=== PATIENT | female | born 1955 | race Caucasian/White ===

== ENCOUNTER 2020-01-26 14:20 | Outpatient (CLI) | payer BC | END 2020-01-26 14:21 | disposition home or self-care (01) | LOC: COV 14:20 | PROVIDERS: ATTEND Family Medicine | DX: R05 Cough (principal); R50.9 Fever, unspecified | CPT/HCPCS: 81599 ==

== ENCOUNTER 2020-01-29 09:44 | Inpatient (IN) | payer BC ==
[2020-01-29] MEDS ORDERED: SODIUM CHLORIDE 0.9% 1,000 ML IV ONE ×2 (10:05→10:06)
[2020-01-29] MEDS ORDERED: KETOROLAC 15 MG/ML VIAL IVP STA (10:06)
[2020-01-29] MEDS ORDERED: ONDANSETRON 4 MG/2 ML VIAL IVP STA (10:06)
[2020-01-29] MEDS ORDERED: ACETAMINOPHEN 1,000 MG/100 ML 100 ML IV STA (10:06)
--- NOTE | 2020-01-29 10:18 | ED Physician Documentation ---
PD HPI URI - Stated complaint Stated Complaint: COUGH/FEVER - History obtained from History obtained from: Patient - History of Present Illness Timing - onset: How many days ago (4-5) Timing duration: Days (Onset of general malaise myalgias fever and cough 4 to 5 days ago with progressive worsening. She had diarrhea for a day 2 or 3 days ago but that has resolved. Decreased appetite and still taking fluids but less food intake. No vomiting. She was getting more short of breath today.She had a screening test for coronavirus within the last 2 to 3days but the results are still pending.) Timing details: Abrupt onset, Still present Associated symptoms: Fever, Chills, Nasal congestion, Dry cough, Dyspnea, NVD. No: Sore throat, Hemoptysis, Chest pain, Bilateral edema Contributing factors: Travel (Visiting from [place] and arrived January 04. She felt fine at that time. She has just been sick the last for 5 days.) Similar symptoms before: Has not had sx before Recently seen: No: Clinic (She had a screening test for coronavirus 1 or 2 days ago and the results are still pending.) Review of Systems Constitutional: reports: Fever, Chills, Myalgias, Fatigue Nose: reports: Rhinorrhea / runny nose, Congestion Throat: reports: Sore throat Respiratory: reports: Dyspnea, Cough. denies: Hemoptysis GI: reports: Diarrhea. denies: Abdominal Pain, Nausea, Vomiting Musculoskeletal: denies: Neck pain, Back pain, Extremity swelling Neurologic: reports: Generalized weakness. denies: Focal weakness, Numbness, Difficulty speaking PD PAST MEDICAL HISTORY - Past Medical History Cardiovascular: None Respiratory: None Neuro: None Endocrine/Autoimmune: None Other Past Medical History: History of CLL without any current medications. She states her white count typically is 14-18. - Present Medications Home Medications: Ambulatory Orders Medication Instructions Recorded Confirmed Duloxetine HCl [Cymbalta] 2 tab DAILY 01/29/20 01/29/20 Levothyroxine [Synthroid] 1 tab DAILY 01/29/20 01/29/20 Melatonin 1 tab DAILY 01/29/20 01/29/20 - Allergies Allergies/Adverse Reactions: Allergies Allergy/AdvReac Type Severity Reaction Status Date / Time aspirin Allergy Anaphylaxis Verified 01/29/20 10:14 azithromycin Allergy Hives Verified 01/29/20 10:14 morphine Allergy Itching Verified 01/29/20 10:14 pregabalin [From Lyrica] Allergy Unknown Verified 01/29/20 10:14 tetanus toxoid, adsorbed Allergy Itching Verified 01/29/20 10:14 gabapentin AdvReac Unknown Verified 01/29/20 10:14 - Living Situation Living Situation: reports: Alone Living Arrangement: reports: At home (She is currently visiting from [place]. She arrived January 04 to visit her sister who is feeling well. The patient started feeling sick after having been here a couple of weeks so seems to be local illness.) - Social History Does the pt smoke?: No Does the pt drink ETOH?: No Does the pt have substance abuse?: No - Family History Family history: denies: Sudden PD ED PE NORMAL - Vitals Vital signs reviewed: Yes - General General: Alert and oriented X 3, No acute distress, Well developed/nourished - HEENT HEENT: Ears normal, Pharynx benign. No: Moist mucous membranes - Neck Neck: Supple, no meningeal sign, No adenopathy - Cardiac Cardiac: RRR, No murmur - Respiratory Respiratory: No respiratory distress. No: Clear bilaterally (There is some crackles sounds diffusely. There is mild scattered expiratory wheezes. She is tachypneic but without any retractions or accessory muscle use. She is febrile.) - Abdomen Abdomen: Soft, Non tender - Back Back: No CVA TTP - Derm Derm: Normal color, Warm and dry - Extremities Extremities: No deformity, No tenderness to palpate, Normal ROM s pain, No edema, No calf tenderness / cord - Neuro Neuro: Alert and oriented X 3, No motor deficit, Normal speech Results - Vitals Vitals: Vital Signs - 24 hr 01/29/20 01/29/20 01/29/20 10:00 10:05 10:38 Temperature 39.6 C H Heart Rate 96 95 Respiratory 32 H 30 H 18 Rate Blood Pressure 127/66 127/58 L O2 Saturation 75 L 96 65 L 01/29/20 01/29/20 01/29/20 10:41 10:49 11:02 Temperature 39.5 C H Heart Rate 90 89 Respiratory 32 H 18 Rate Blood Pressure 134/55 H 125/66 O2 Saturation 100 95 01/29/20 01/29/20 01/29/20 11:36 12:00 12:28 Temperature 37.4 C 99.5 C H Heart Rate 85 81 81 Respiratory 24 16 20 Rate Blood Pressure 122/64 121/69 127/68 O2 Saturation 93 93 94 01/29/20 12:32 Temperature 99.5 C H Heart Rate 82 Respiratory 18 Rate Blood Pressure 125/76 O2 Saturation 92 Oxygen O2 Source Nasal cannula Oxygen Flow Rate 2 - Labs Labs: Laboratory Tests 01/29/20 01/29/20 01/29/20 10:05 10:05 10:05 WBC 11.1 H RBC 4.35 Hgb 12.5 Hct 39.4 MCV 90.6 MCH 28.7 MCHC 31.7 L RDW 14.6 Plt Count 330 MPV 10.4 Neut # (Auto) 7.6 H Lymph # (Auto) 2.8 [place] # (Auto) 0.5 Eos # (Auto) 0.0 Baso # (Auto) 0.1 Absolute Nucleated RBC 0.00 Nucleated RBC % 0.0 Manual Slide Review Indicated WBC Morphology NORMAL APPEARANCE Platelet Estimate NORMAL (130-450,000) Platelet Morphology NORMAL APPEARANCE RBC Morph Micro Appear NORMAL APPEARANCE D-Dimer 280.3 H Sodium 136 Potassium 3.3 L Chloride 100 L Carbon Dioxide 21 Anion Gap 15.0 H BUN 20 Creatinine 1.1 H Estimated GFR (MDRD) 50 L Glucose 118 H Calcium 8.4 L Total Bilirubin 0.9 AST 84 H ALT 40 Alkaline Phosphatase 76 C-Reactive Protein 21.9 H B-Natriuretic Peptide Total Protein 6.6 L Albumin 3.1 L Globulin 3.5 Albumin/Globulin Ratio 0.9 L Lipase 24 Influenza A (Rapid) Influenza B (Rapid) 01/29/20 01/29/20 10:05 10:35 WBC RBC Hgb Hct MCV MCH MCHC RDW Plt Count MPV Neut # (Auto) Lymph # (Auto) [place] # (Auto) Eos # (Auto) Baso # (Auto) Absolute Nucleated RBC Nucleated RBC % Manual Slide Review WBC Morphology Platelet Estimate Platelet Morphology RBC Morph Micro Appear D-Dimer Sodium Potassium Chloride Carbon Dioxide Anion Gap BUN Creatinine Estimated GFR (MDRD) Glucose Calcium Total Bilirubin AST ALT Alkaline Phosphatase C-Reactive Protein B-Natriuretic Peptide 42 Total Protein Albumin Globulin Albumin/Globulin Ratio Lipase Influenza A (Rapid) Negative Influenza B (Rapid) Negative - Rads (name of study) chest xray Radiology: Prelim report reviewed (Diffuse scattered groundglass appearance and localized infiltrates consistent with a viral pneumonia.), See rad report PD MEDICAL DECISION MAKING - ED course Complexity details: considered differential (Symptoms highly suggestive of coronavirus with progressive oxygen need and a chest x-ray showing significant infiltrates. She is maintaining her oxygen on 3 L nasal cannula at this point. No accessory muscle use. She does seem dehydrated so was gently rehydrated with small volumes. I talked with the hospitalist about having the patient in the hospital as she is needing supplemental oxygen already at this point and is likely at the upswing of illness.), d/w patient Departure - Departure Disposition: 66 [facility] DC/Xfer Clinical Impression: Viral pneumonia, CLL (chronic lymphocytic leukemia), Hypoxemia Dyspnea Qualifiers: Dyspnea type: shortness of breath Qualified Code(s): R06.02 - Shortness of breath Condition: Stable Record reviewed to determine appropriate education?: Yes
[2020-01-29 10:24] LABS: BASOPHILS # (AUTO) 0.1 10^3/uL (0.0-0.1); BASOPHILS % (AUTO) 0.5 %; EOSINOPHILS % (AUTO) 0.1 %; HGB - HEMOGLOBIN 12.5 g/dL (12.0-16.0); LYMPHOCYTES # (AUTO) 2.8 10^3/uL (1.5-3.5); LYMPHOCYTES % (AUTO) 25.5 %; MEAN CORPUSCULAR HEMOGLOBIN 28.7 pg (27.0-31.0); MEAN CORPUSCULAR HGB CONC 31.7 g/dL (32.0-36.0); MEAN CORPUSCULAR VOLUME 90.6 fL (81.0-99.0); MEAN PLATELET VOLUME 10.4 fL (7.9-10.8); MONOCYTES # (AUTO) 0.5 10^3/uL (0.0-1.0); MONOCYTES % (AUTO) 4.4 %; NEUTROPHILS # (AUTO) 7.6 10^3/uL (1.5-6.6); NEUTROPHILS % (AUTO) 68.5 %; PLT - PLATELET COUNT 330 10^3/uL (130-450); RED BLOOD COUNT 4.35 10^6/uL (4.20-5.40); RED CELL DISTRIBUTION WIDTH 14.6 % (12.0-15.0); WHITE BLOOD COUNT 11.1 x10^3/uL (4.8-10.8)
--- NOTE | 2020-01-29 10:48 | XRAY Report ---
Reason: chest pain Procedure Date: 01/29/2020 Accession Number: [id number] / [id number] Procedure: XR - Chest 1 View X-Ray CPT Code: 17797 Final Report FULL RESULT: EXAM: CHEST RADIOGRAPHY EXAM DATE: 01/29/2020 10:42 AM. CLINICAL HISTORY: Chest pain. COMPARISON: None. TECHNIQUE: 1 view. FINDINGS: Lungs/Pleura: Bilateral groundglass and consolidative opacities, left greater than right and with some peripheral predominance. No pleural effusion demonstrated. No pneumothorax. Mediastinum: Within exam limitations, the cardiomediastinal contour is normal. Other: Partial demonstration of any interior lower cervical spine surgical fusion changes. IMPRESSION: Bilateral groundglass and consolidative pulmonary opacities, left greater than right, consistent with multifocal pneumonia. RADIA
[2020-01-29 10:51] LABS: ALBUMIN 3.1 g/dL (3.2-5.5); ALBUMIN/GLOBULIN RATIO 0.9 (1.0-2.2); BILIRUBIN,TOTAL 0.9 mg/dL (0.2-1.0); CALCIUM 8.4 mg/dL (8.5-10.3); CREATININE 1.1 mg/dL (0.4-1.0); CRP - C-REACTIVE PROTEIN 21.9 mg/dL (0-1.0); TOTAL PROTEIN 6.6 g/dL (6.7-8.2)
[2020-01-29 11:06] LABS: PLATELET ESTIMATE, MANUAL NORMAL (130-450,000) (NORMAL); PLATELET MORPHOLOGY NORMAL APPEARANCE (NORMAL); RBC MORPHOLOGY (MULTIPLE) NORMAL APPEARANCE (NORMAL)
[2020-01-29] MEDS ORDERED: ONDANSETRON 4 MG/2 ML VIAL IVP PRN (12:48)
[2020-01-29] MEDS ORDERED: ALBUTEROL NEB 2.5 MG/3 ML INH PRN (12:56)
[2020-01-29] MEDS ORDERED: AZITHROMYCIN INJ 500 MG in SODIUM CHLORIDE 0.9% 250 ML IV SCH (13:00)
[2020-01-29] MEDS ORDERED: cefTRIAXone 1 GM in SODIUM CHLORIDE 0.9% MINIBAG 100 ML IV SCH (13:00)
[2020-01-29] MEDS: SODIUM CHLORIDE 0.9% 1,000 ML IV SCH (14:47)
[2020-01-29] MEDS: levoFLOXacin 750 MG/150 ML 750 MG/150 ML BAG IV SCH (14:50)
--- NOTE | 2020-01-29 16:40 | HISTORY & PHYSICAL EXAMINATION ---
Chief Complaint - Chief Complaint Chief Complaint: SOB History of Present Illness - Admitted From Admitted From:: ER - History Obtained From History obtained from: pt - History of Present Illness HPI Comment/Other: This is a 64-yrs-old female with a past medical History significance of CLL without any current medications with white count typically at arrange of 14-18, hypothyroidism, anxiety, who present ER complain of shortness of breath. Pt report she came from [place] into [facility] to take care of her mother on January 2020. She felt not good on last week Saturday, then she began to have fever on Saturday. Her highest fever was 103 degree at home. she tried not to come to hospital. she report she had 7 days fever in home, she did not seek medical attention and she just took Tylenol to reduce her fever. she was very sure she had this Covid 19. She had Covid 19 test on this Saturday but the result is still pending. she report she has been cough and shortness of breath in the several days as well. she denies chest pain, abdominal pain. CXR reveals bilateral grou ndglass and consolidative pulmonary opacities, left greater than right, consistent with multifocal pneumonia. In route lab test, pt's WBC is 11, slight elevated AST, and D-dimer and elevated CRP. Pt is febrile with 39.6 degree, RR is 32, 75% sat on room air. pt was admitted for pneumonia. Discussed with care goal with pt, pt request full code for her code status History - Past Medical History Cardiovascular: reports: None Respiratory: reports: Shortness of breath Neuro: reports: None Endocrine/Autoimmune: reports: HyPOthyroidism GI: reports: None : reports: None Psych: reports: Depression Musculoskeletal: reports: None Derm: reports: None Other Past Medical History: History of CLL without any current medications. She states her white count typically is 14-18. - Past Surgical History General: reports: Gastric surgery HEENT: reports: Other - Family & Social History Family History: Mother: Alive and Well, Alzheimer's Disease, CAD, Father: , Cancer Family History Comment/Other: pt report her father from CLL as well, her mother is alive with afib and dementia. she has one dauther and living [place] Living arrangement: At home (She is currently visiting from [place]. She arrived January 04 to visit her sister who is feeling well. The patient started feeling sick after having been here a couple of weeks so seems to be local illness.) Living Situation: Alone Social History Notes: she denies smoking, alcohol and drug abuse history. 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 Meds/Allgy - Home Medications Home Medications: Ambulatory Orders Medication Instructions Recorded Confirmed Duloxetine HCl [Cymbalta] 2 tab DAILY 01/29/20 01/29/20 Levothyroxine [Synthroid] 1 tab DAILY 01/29/20 01/29/20 Melatonin 1 tab DAILY 01/29/20 01/29/20 - Allergies Allergies/Adverse Reactions: Allergies Allergy/AdvReac Type Severity Reaction Status Date / Time aspirin Allergy Anaphylaxis Verified 01/29/20 10:14 azithromycin Allergy Hives Verified 01/29/20 10:14 morphine Allergy Itching Verified 01/29/20 10:14 pregabalin [From Lyrica] Allergy Unknown Verified 01/29/20 10:14 tetanus toxoid, adsorbed Allergy Itching Verified 01/29/20 10:14 gabapentin AdvReac Unknown Verified 01/29/20 10:14 Review of Systems - Constitutional Constitutional: reports: Fatigue, Fever, Chills, Malaise, Weakness, Poor appetite. denies: Diaphoresis, Night sweats - Eyes Eyes: denies: Pain, Blurred vision, Spots in vision, Field loss, Vision loss - Ears, Nose & Throat Ears, Nose & Throat: denies: Ear pain, Hearing aids, Nasal discharge, Nosebleeds, Nasal congestion, Mouth lesions, Bleeding gums - Cardiovascular Cariovascular: reports: Exertional dyspnea, Decr. exercise tolerance. denies: Irregular heart rate, Palpitations, Chest pain, Edema, Lightheadedness, Syncope - Respiratory Respiratory: reports: Cough, SOB with exertion. denies: Sputum production, Wheezing, Snoring, Hemoptysis, Orthopnea, SOB at rest, Apnea, Pleuritic pain - Gastrointestinal Gastrointestinal: denies: Abdominal pain, Abdominal distention, Constipation, Diarrhea, Change in bowel habits, Rectal bleeding, Bloody stools, Nausea, Vomiting, Bile emesis, Bk blood emesis, Coffee grounds emesis, Reflux/heartb urn - Genitourinary Genitourinary: denies: Dysuria, Frequency, Urgency, Hematuria, Incontinence, Flank pain, Nocturia, Urethral discharge - Musculoskeletal Musculoskeletal: reports: Muscle pain, Muscle aches. denies: Back pain, Stiffness, Limited range of motion, Muscle weakness, Gout, Joint pain - Integumentary Integumentary: denies: Rash, Pruritis, Lesions, Dryness, Lumps, Acne, Pigment changes, Nail changes - Neurological Neurological: reports: General weakness. denies: Focal weakness, Headache, Numbness, Memory problems, Pre-existing deficit, Abnormal gait, Seizures, Incoordination, Slurred speech - Psychiatric Psychiatric: denies: Depression, Anxiety, Suicidal, Delusions, Hallucinations, H omicidal - Endocrine Endocrine: denies: Polyuria - Hematologic/Lymphatic Hematologic/Lymphatic: denies: Anemia, Bruising, Petechiae, Blood clots, Lymphadenopathy, Bleeding tendencies Exam - Vital Signs Vital Signs: Vital Signs x48h Temp Pulse Pulse Resp BP BP Pulse Ox 01/29/20 15:46 36.9 C 83 20 122/40 L 96 01/29/20 14:41 36.4 C L 76 20 111/57 L 96 01/29/20 12:59 80 18 119/70 93 01/29/20 12:32 99.5 C H 82 18 125/76 92 01/29/20 12:28 99.5 C H 81 20 127/68 94 01/29/20 12:00 81 16 121/69 93 01/29/20 11:36 37.4 C 85 24 122/64 93 01/29/20 11:02 89 18 125/66 95 01/29/20 10:49 39.5 C H 01/29/20 10:41 90 32 H 134/55 H 100 01/29/20 10:38 95 18 127/58 L 65 L 01/29/20 10:05 30 H 96 01/29/20 10:00 39.6 C H 96 32 H 127/66 75 L - Physical Exam General Appearance: positive: Alert, Mild distress. negative: Lethargic Eyes Bilateral: positive: Normal inspection, PERRL, No lid inflammation ENT: positive: ENT inspection nml, Pharynx nml, No signs of dehydration. negative: Purulent nasal drainage Neck: positive: Nml inspection, Thyroid nml, No JVD. negative: Trachea midline, Thyromegaly, Lymphadenopathy (R), Lymphadenopathy (L), Stiff neck, Tracheal deviation Respiratory: positive: Chest non-tender, Rales, Rhonchi. negative: No respiratory distress, Breath sounds nml, Wheezes Cardiovascular: positive: Regular rate & rhythm, No murmur, No gallop. negative: Irregularly irregular, Extrasystoles, Tachycardia, Bradycardia, JVD present, Systolic murmur, Diastolic murmur Peripheral Pulses: positive: 2+ Abdomen: positive: Non-tender, No organomegaly, Nml bowel sounds, No distention. negative: Tenderness, Guarding, Rebound Back: positive: Nml inspection. negative: CVA tenderness (R), CVA tenderness (L) Skin: positive: Color nml, No rash, Warm, Dry. negative: Cyanosis, Diaphoresis, Pallor Extremities: positive: Non-tender, Nml appearance. negative: Calf tenderness, Claudia's sign/cords Neurologic/Psychiatric: positive: Oriented x3, Sensation nml. negative: Weakness, Sensory loss, Facial droop, Slurred/abnml speech Conclusion/Plan - Problem List (1) Pneumonia Conclusion/Plan: pt's Covid 19 was this week Saturday, result is still in pending. Her supervisor long goods fever, CXR result, lab test all indicate pt might have Covid 19. because pt already had 7 days infection with high fever, bacterial infection secondary to virus pneumonia is concerned IVF of NS to support, start Levaquin, O2 supplement as needed, ABG test is pending. will closely monitor pt's respiratory status, pt is full code. (2) Respiratory failure with hypoxia Conclusion/Plan: pt has 75% on room air with 32 RR (3) CLL (chronic lymphocytic leukemia) Conclusion/Plan: pt report she has been stable and monitored by her oncologist, advise pt followup her oncologist (4) Hypothyroidism Conclusion/Plan: stable, test TSH, resume home meds (5) Anxiety Conclusion/Plan: stable, resume home Cymbalta - Lab Results Fish Bones: 01/29/20 10:05 01/29/20 10:05 Core Measures - Anticipated LOS I expect patient to be DC'd or transferred within 96 hours.: Yes - DVT/VTE - Prophylaxis VTE/DVT Device ordered at admit?: Yes VTE/DVT Prophylaxis med ordered at admit?: Yes
[2020-01-29] MEDS ORDERED: POTASSIUM CHLORIDE 20 MEQ TABLET PO ONE (17:00)
[2020-01-29] MEDS: SODIUM CHLORIDE FLUSH 0.9% 10 ML SYRINGE IVP SCH (17:25)
[2020-01-29] MEDS: ACETAMINOPHEN 325 MG TABLET PO PRN ×2 (17:28→22:27)
[2020-01-29 17:39] LABS: ABG PH 7.48 (7.35-7.45)
[2020-01-29 17:42] LABS: ABG BASE EXCESS -3.9 mmol/L (-2.0-3.0); ABG HCO3 18.3 mmol/L (22.0-26.0); ABG OXYGEN SATURATION 98 % (94-98); ABG PO2 133 mmHg (80-100); ALLEN TEST POSITIVE
[2020-01-29 17:44] LABS: ABG PCO2 25 mmHg (34-45)
[2020-01-29] MEDS: KETOROLAC 15 MG/ML VIAL IVP PRN (18:08)
[2020-01-29] MEDS: FAMOTIDINE 20 MG TABLET PO SCH (20:27)
[2020-01-29] MEDS ORDERED: MELATONIN PO SCH (21:00)
[2020-01-30] MEDS: KETOROLAC 15 MG/ML VIAL IVP PRN ×4 (00:45→20:38)
[2020-01-30] MEDS: SODIUM CHLORIDE 0.9% 1,000 ML IV SCH ×3 (00:47→20:37)
[2020-01-30] MEDS: SODIUM CHLORIDE FLUSH 0.9% 10 ML SYRINGE IVP SCH ×3 (01:04→19:53)
[2020-01-30] MEDS: ACETAMINOPHEN 325 MG TABLET PO PRN ×2 (05:20→14:55)
[2020-01-30 06:34] LABS: BASOPHILS % (AUTO) 0.2 %; EOSINOPHILS % (AUTO) 0.1 %; LYMPHOCYTES # (AUTO) 1.7 10^3/uL (1.5-3.5); LYMPHOCYTES % (AUTO) 19.8 %; MEAN CORPUSCULAR HEMOGLOBIN 27.5 pg (27.0-31.0); MEAN CORPUSCULAR HGB CONC 30.2 g/dL (32.0-36.0); MEAN CORPUSCULAR VOLUME 91.2 fL (81.0-99.0); MEAN PLATELET VOLUME 10.2 fL (7.9-10.8); MONOCYTES # (AUTO) 0.4 10^3/uL (0.0-1.0); MONOCYTES % (AUTO) 4.4 %; NEUTROPHILS # (AUTO) 6.3 10^3/uL (1.5-6.6); NEUTROPHILS % (AUTO) 74.2 %; PLT - PLATELET COUNT 262 10^3/uL (130-450); RED BLOOD COUNT 3.63 10^6/uL (4.20-5.40); RED CELL DISTRIBUTION WIDTH 14.7 % (12.0-15.0); WHITE BLOOD COUNT 8.6 x10^3/uL (4.8-10.8)
[2020-01-30] MEDS: LEVOTHYROXINE 125 MCG TABLET PO SCH (06:34)
[2020-01-30 06:49] LABS: ALBUMIN 2.5 g/dL (3.2-5.5); ALBUMIN/GLOBULIN RATIO 0.9 (1.0-2.2); BILIRUBIN,TOTAL 0.5 mg/dL (0.2-1.0); CALCIUM 7.6 mg/dL (8.5-10.3); CREATININE 1.1 mg/dL (0.4-1.0); TOTAL PROTEIN 5.3 g/dL (6.7-8.2)
[2020-01-30] MEDS: DULoxetine 30 MG CAPSULE PO SCH (09:04)
[2020-01-30] MEDS: FAMOTIDINE 20 MG TABLET PO SCH ×2 (09:06→20:38)
[2020-01-30] MEDS: levoFLOXacin 750 MG/150 ML 750 MG/150 ML BAG IV SCH (09:06)
[2020-01-30] MEDS: ENOXAPARIN 40 MG/0.4 ML SYRINGE SUBQ SCH (09:06)
--- NOTE | 2020-01-30 09:07 | PROVIDER PROGRESS NOTE ---
Assessment/Plan - Problem List (1) Pneumonia due to 2019 novel coronavirus Assessment/Plan: Her drive thru COVID swab, done last week, result has returned back positive. She thinks this was going on for >1week, when she lost her sense of taste. She still has a mild cough with some sputum. Still has a fever to 38C. Maintain isolation as already ordered. Tylenol for fever Will add Hydroxycloroquine per Pharmacy protocol. (2) CAP (community acquired pneumonia) Assessment/Plan: She was started on empiric Levofloxacin, and not Zithromax plus Ceftriaxone because she is Zithromax allergic. (3) Respiratory failure with hypoxia Assessment/Plan: ABG last evening showed respiratory alkalosis, compensated, with pH 7.48, pCO2 23 and bicarb 18, suggesting she has been tachypneic for quite a while. She has not tired and become acidotic from CO2 retention. Today her respiratory effort appears more comfortable Continue supplemental O2. Follow ABG if clinically worsens. She is a Full Code, therefore intubation would be offered to her. (4) JANICE (acute kidney injury) Assessment/Plan: Dehydration from 7 days of fever and brief diarrhea, is the likely cause. Continue iv hydration. (5) Hypothyroidism Assessment/Plan: Continue home med (6) Anemia Assessment/Plan: Partly hemodilutional, but she may have chronic anemia from her malignancy (CLL). Follow CBC daily. (7) CLL (chronic lymphocytic leukemia) Assessment/Plan: As per Hx. She continues on her home chemotherapy, ordered. (8) Anxiety Assessment/Plan: Continue her home med Duloxetine She requested Ambien for a sleep aid, will order - Current Meds Current Meds: Current Medications Generic Name Dose Route Start Last Admin Trade Name Freq PRN Reason Stop Dose Admin Acetaminophen 650 mg 01/29/20 12:48 01/30/20 05:20 Tylenol PO 650 mg Q4HR PRN Administration Pain 1 to 4 Famotidine 20 mg 01/29/20 21:00 01/29/20 20:27 Pepcid PO 20 mg BID CORONA Administration Sodium Chloride 1,000 mls @ 100 mls/hr 01/29/20 14:30 01/30/20 00:47 Normal Saline 0.9% IV 100 mls/hr .Q10H CORONA Administration Levofloxacin 750 mg in 150 mls @ 100 mls/hr 01/29/20 14:00 01/29/20 16:20 Levaquin 750 Mg/150 Ml IV 02/02/20 10:29 Infused DAILY CORONA Infusion Ketorolac Tromethamine 15 mg 01/29/20 17:48 01/30/20 06:34 Toradol Inj (15mg) IVP 02/03/20 17:47 15 mg Q6HR PRN Administration PAIN Levothyroxine Sodium 125 mcg 01/30/20 07:00 01/30/20 06:34 Synthroid PO 125 mcg QDAC CORONA Administration Sodium Chloride 10 ml 01/29/20 17:00 01/30/20 01:04 Normal Saline Flush 0.9% IVP Not Given 0100,0900,1700 CORONA - Lab Result Fish Bone Diagrams: 01/30/20 06:10 01/30/20 06:10 Subjective - Subjective Patient Reports: Feeling Better, Cough, Other (She has lost her sense of taste since 8 days ago, has no appetite but is not nauseated) Objective Vital Signs: Vital Signs - 24 hr 01/29/20 01/29/20 01/29/20 10:00 10:05 10:38 Temperature 39.6 C H Heart Rate 96 95 Heart Rate [ Brachial] Respiratory 32 H 30 H 18 Rate Blood Pressure 127/66 127/58 L Blood Pressure [Left Brachial artery] O2 Saturation 75 L 96 65 L 01/29/20 01/29/20 01/29/20 10:41 10:49 11:02 Temperature 39.5 C H Heart Rate 90 89 Heart Rate [ Brachial] Respiratory 32 H 18 Rate Blood Pressure 134/55 H 125/66 Blood Pressure [Left Brachial artery] O2 Saturation 100 95 01/29/20 01/29/20 01/29/20 11:36 12:00 12:28 Temperature 37.4 C 99.5 C H Heart Rate 85 81 81 Heart Rate [ Brachial] Respiratory 24 16 20 Rate Blood Pressure 122/64 121/69 127/68 Blood Pressure [Left Brachial artery] O2 Saturation 93 93 94 01/29/20 01/29/20 01/29/20 12:32 12:59 14:41 Temperature 99.5 C H 36.4 C L Heart Rate 82 80 Heart Rate [ 76 Brachial] Respiratory 18 18 20 Rate Blood Pressure 125/76 119/70 Blood Pressure 111/57 L [Left Brachial artery] O2 Saturation 92 93 96 01/29/20 01/29/20 01/29/20 15:46 17:23 17:55 Temperature 36.9 C 37.8 C H 37.8 C H Heart Rate 81 Heart Rate [ 83 84 Brachial] Respiratory 20 22 24 Rate Blood Pressure Blood Pressure 122/40 L 120/40 L [Left Brachial artery] O2 Saturation 96 100 96 01/29/20 01/29/20 01/29/20 19:23 20:21 22:29 Temperature 37.4 C 37.0 C 37.7 C H Heart Rate Heart Rate [ 79 Brachial] Respiratory 20 Rate Blood Pressure Blood Pressure 98/61 [Left Brachial artery] O2 Saturation 96 01/29/20 01/30/20 01/30/20 23:54 04:59 06:40 Temperature 37.6 C H 37.8 C H 38 C H Heart Rate Heart Rate [ 67 87 Brachial] Respiratory 22 20 Rate Blood Pressure Blood Pressure 122/49 L 98/47 L [Left Brachial artery] O2 Saturation 95 94 01/30/20 08:26 Temperature 37.0 C Heart Rate Heart Rate [ 80 Brachial] Respiratory 20 Rate Blood Pressure Blood Pressure 121/64 [Left Brachial artery] O2 Saturation 92 Oxygen O2 Source Room air Oxygen Flow Rate 2 I&O (Last 24 Hrs): Intake and Output Totals x24h 01/28/20 01/29/20 01/30/20 23:59 23:59 23:59 Intake Total 2610 1000 Balance 2610 1000 General: Alert, Oriented x3 HEENT: EOMI, Mucous membr. moist/pink Neck: Supple, No JVD Neuro: Alert, Non Focal Cardiovascular: Regular rate Respiratory: No respiratory distress, Other (No stetoscope available to examine breath sounds) Abdomen: Soft Extremities: No edema - Results Results: Laboratory Results WBC 8.6 x10^3/uL (4.8-10.8) 01/30/20 06:10 RBC 3.63 10^6/uL (4.20-5.40) L 01/30/20 06:10 Hgb 10.0 g/dL (12.0-16.0) L 01/30/20 06:10 Hct 33.1 % (37.0-47.0) L 01/30/20 06:10 MCV 91.2 fL (81.0-99.0) 01/30/20 06:10 MCH 27.5 pg (27.0-31.0) 01/30/20 06:10 MCHC 30.2 g/dL (32.0-36.0) L 01/30/20 06:10 RDW 14.7 % (12.0-15.0) 01/30/20 06:10 Plt Count 262 10^3/uL (130-450) 01/30/20 06:10 MPV 10.2 fL (7.9-10.8) 01/30/20 06:10 Neut # (Auto) 6.3 10^3/uL (1.5-6.6) 01/30/20 06:10 Lymph # (Auto) 1.7 10^3/uL (1.5-3.5) 01/30/20 06:10 [place] # (Auto) 0.4 10^3/uL (0.0-1.0) 01/30/20 06:10 Eos # (Auto) 0.0 10^3/uL (0.0-0.7) 01/30/20 06:10 Baso # (Auto) 0.0 10^3/uL (0.0-0.1) 01/30/20 06:10 Absolute Nucleated RBC 0.00 x10^3/uL 01/30/20 06:10 Nucleated RBC % 0.0 /100WBC 01/30/20 06:10 Manual Slide Review Indicated 01/29/20 10:05 WBC Morphology NORMAL APPEARANCE (NORMAL) 01/29/20 10:05 Platelet Estimate NORMAL (130-450,000) (NORMAL) 01/29/20 10:05 Platelet Morphology NORMAL APPEARANCE (NORMAL) 01/29/20 10:05 RBC Morph Micro Appear NORMAL APPEARANCE (NORMAL) 01/29/20 10:05 D-Dimer 280.3 ng/mL (200.0-255.0) H 01/29/20 10:05 Bld Gas Analysis Time 1736 01/29/20 17:30 Sample Site RIGHT RADIAL 01/29/20 17:30 ABG pH 7.48 (7.35-7.45) H 01/29/20 17:30 ABG pCO2 25 mmHg (34-45) L* 01/29/20 17:30 ABG pO2 133 mmHg (80-100) H 01/29/20 17:30 ABG HCO3 18.3 mmol/L (22.0-26.0) L 01/29/20 17:30 ABG Total CO2 19.0 MMOL/L (21.0-29.0) L 01/29/20 17:30 ABG O2 Saturation 98 % (94-98) 01/29/20 17:30 ABG Base Excess -3.9 mmol/L (-2.0-3.0) L 01/29/20 17:30 Kelvin Test POSITIVE 01/29/20 17:30 O2 Delivery Device NASAL CANNULA 01/29/20 17:30 O2 Liters/Min 2.00 LPM 01/29/20 17:30 Sodium 136 mmol/L (135-145) 01/30/20 06:10 Potassium 3.7 mmol/L (3.5-5.0) 01/30/20 06:10 Chloride 107 mmol/L (101-111) 01/30/20 06:10 Carbon Dioxide 20 mmol/L (21-32) L 01/30/20 06:10 Anion Gap 9.0 (6-13) 01/30/20 06:10 BUN 22 mg/dL (6-20) H 01/30/20 06:10 Creatinine 1.1 mg/dL (0.4-1.0) H 01/30/20 06:10 Estimated GFR (MDRD) 50 (>89) L 01/30/20 06:10 Glucose 114 mg/dL (70-100) H 01/30/20 06:10 Calcium 7.6 mg/dL (8.5-10.3) L 01/30/20 06:10 Total Bilirubin 0.5 mg/dL (0.2-1.0) 01/30/20 06:10 AST 63 IU/L (10-42) H 01/30/20 06:10 ALT 33 IU/L (10-60) 01/30/20 06:10 Alkaline Phosphatase 65 IU/L (42-121) 01/30/20 06:10 C-Reactive Protein 19.0 mg/dL (0-1.0) H 01/30/20 06:10 B-Natriuretic Peptide 42 pg/mL (5-100) 01/29/20 10:05 Total Protein 5.3 g/dL (6.7-8.2) L 01/30/20 06:10 Albumin 2.5 g/dL (3.2-5.5) L 01/30/20 06:10 Globulin 2.8 g/dL (2.1-4.2) 01/30/20 06:10 Albumin/Globulin Ratio 0.9 (1.0-2.2) L 01/30/20 06:10 Lipase 24 U/L (22-51) 01/29/20 10:05 TSH 3.12 uIU/mL (0.34-5.60) 01/30/20 06:10 Influenza A (Rapid) Negative (Negative) 01/29/20 10:35 Influenza B (Rapid) Negative (Negative) 01/29/20 10:35
[2020-01-30] MEDS ORDERED: AZITHROMYCIN 250 MG TABLET PO SCH (10:00)
[2020-01-30] MEDS: HYDROXYCHLOROQUINE 200 MG TABLET PO SCH ×2 (11:21→20:38)
[2020-01-30] MEDS: guaiFENesin 600 MG TABLET PO SCH ×2 (13:15→20:38)
[2020-01-30] MEDS ORDERED: ZOLPIDEM 5 MG TABLET PO PRN (16:27)
[2020-01-31] MEDS: SODIUM CHLORIDE FLUSH 0.9% 10 ML SYRINGE IVP SCH ×3 (01:48→16:05)
[2020-01-31] MEDS: ACETAMINOPHEN 325 MG TABLET PO PRN (01:51)
[2020-01-31] MEDS: SODIUM CHLORIDE 0.9% 1,000 ML IV SCH ×3 (05:47→21:52)
[2020-01-31] MEDS: LEVOTHYROXINE 125 MCG TABLET PO SCH (06:04)
[2020-01-31 06:26] LABS: BASOPHILS % (AUTO) 0.4 %; EOSINOPHILS # (AUTO) 0.1 10^3/uL (0.0-0.7); EOSINOPHILS % (AUTO) 0.5 %; HGB - HEMOGLOBIN 10.7 g/dL (12.0-16.0); LYMPHOCYTES # (AUTO) 2.4 10^3/uL (1.5-3.5); LYMPHOCYTES % (AUTO) 23.5 %; MEAN CORPUSCULAR HEMOGLOBIN 29.2 pg (27.0-31.0); MEAN CORPUSCULAR HGB CONC 31.6 g/dL (32.0-36.0); MEAN CORPUSCULAR VOLUME 92.4 fL (81.0-99.0); MEAN PLATELET VOLUME 10.5 fL (7.9-10.8); MONOCYTES # (AUTO) 0.4 10^3/uL (0.0-1.0); MONOCYTES % (AUTO) 4.4 %; NEUTROPHILS % (AUTO) 69.7 %; PLT - PLATELET COUNT 367 10^3/uL (130-450); RED BLOOD COUNT 3.67 10^6/uL (4.20-5.40); RED CELL DISTRIBUTION WIDTH 14.9 % (12.0-15.0)
[2020-01-31 06:42] LABS: ALBUMIN 2.4 g/dL (3.2-5.5); ALBUMIN/GLOBULIN RATIO 0.8 (1.0-2.2); BILIRUBIN,TOTAL 0.4 mg/dL (0.2-1.0); CALCIUM 7.9 mg/dL (8.5-10.3); CREATININE 1.1 mg/dL (0.4-1.0); TOTAL PROTEIN 5.5 g/dL (6.7-8.2)
[2020-01-31] MEDS: levoFLOXacin 750 MG/150 ML 750 MG/150 ML BAG IV SCH (09:26)
[2020-01-31] MEDS: AZITHROMYCIN 250 MG TABLET PO SCH (09:27)
[2020-01-31] MEDS: FAMOTIDINE 20 MG TABLET PO SCH ×2 (09:27→22:27)
[2020-01-31] MEDS: DULoxetine 30 MG CAPSULE PO SCH (09:27)
[2020-01-31] MEDS: guaiFENesin 600 MG TABLET PO SCH ×2 (09:27→22:26)
[2020-01-31] MEDS: ENOXAPARIN 40 MG/0.4 ML SYRINGE SUBQ SCH (09:27)
[2020-01-31] MEDS: HYDROXYCHLOROQUINE 200 MG TABLET PO SCH (09:27)
--- NOTE | 2020-01-31 12:55 | PROVIDER PROGRESS NOTE ---
Assessment/Plan - Problem List (1) Pneumonia due to 2019 novel coronavirus Assessment/Plan: Hydroxychloroquin ordered Transfer to ICU may be needed today (2) ARDS (adult respiratory distress syndrome) Assessment/Plan: O2 sats dropped into 70% despite being on O2 per n.c. ABG showed desats and she is fatiguing CXR ordered and showed even worse patchy diffuse opacities. I discussed the need for vent since she is fatiguing. She agrees to be intubated and sedated electively. She reported that she has a Hx of malignant hyperthermia and wants to talk to the Anesthesiology staff. She wants to call her family by phone. (3) CAP (community acquired pneumonia) Assessment/Plan: Empiric iv antibx were started (4) JANICE (acute kidney injury) Assessment/Plan: Improved with iv hydration (5) Hypothyroidism Assessment/Plan: on her home po dose, will be changed to iv if she is intubated and on the vent. (6) Anemia Assessment/Plan: As per Hx Follow CBC daily, transfuse if hgb < 7 (7) CLL (chronic lymphocytic leukemia) Assessment/Plan: She was getting her home chemo while here. This gave her the immunocompromised status and higher risk of COVID infection. (8) Anxiety Assessment/Plan: I offered addnl anxiolytic, she declined. 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 - Current Meds Current Meds: Current Medications Generic Name Dose Route Start Last Admin Trade Name Freq PRN Reason Stop Dose Admin Acetaminophen 650 mg 01/29/20 12:48 01/31/20 01:51 Tylenol PO 650 mg Q4HR PRN Administration Pain 1 to 4 Azithromycin 250 mg 01/31/20 09:00 01/31/20 09:27 Zithromax PO 02/03/20 09:01 250 mg DAILY CORONA Administration Duloxetine HCl 120 mg 01/30/20 09:00 01/31/20 09:27 Cymbalta PO 120 mg DAILY CORONA Administration Enoxaparin Sodium 40 mg 01/30/20 09:00 01/31/20 09:27 Lovenox SUBQ 40 mg DAILY CORONA Administration Famotidine 20 mg 01/29/20 21:00 01/31/20 09:27 Pepcid PO 20 mg BID CORONA Administration Guaifenesin 600 mg 01/30/20 12:00 01/31/20 09:27 Mucinex PO 600 mg BID CORONA Administration Hydroxychloroquine Sulfate 200 mg 01/31/20 09:00 01/31/20 09:27 Plaquenil PO 02/03/20 09:01 200 mg DAILY CORONA Administration Sodium Chloride 1,000 mls @ 100 mls/hr 01/29/20 14:30 01/31/20 05:47 Normal Saline 0.9% IV 100 mls/hr .Q10H CORONA Administration Levofloxacin 750 mg in 150 mls @ 100 mls/hr 01/29/20 14:00 01/31/20 09:26 Levaquin 750 Mg/150 Ml IV 02/02/20 10:29 100 mls/hr DAILY CORONA Administration Ketorolac Tromethamine 15 mg 01/29/20 17:48 01/30/20 20:38 Toradol Inj (15mg) IVP 02/03/20 17:47 15 mg Q6HR PRN Administration PAIN Levothyroxine Sodium 125 mcg 01/30/20 07:00 01/31/20 06:04 Synthroid PO 125 mcg QDAC CORONA Administration Sodium Chloride 10 ml 01/29/20 17:00 01/31/20 09:26 Normal Saline Flush 0.9% IVP 10 ml 0100,0900,1700 CORONA Administration Zolpidem Tartrate 5 mg 01/30/20 16:27 01/30/20 20:38 Ambien PO 5 mg QPM PRN Administration Insomnia - Lab Result Fish Bone Diagrams: 01/31/20 06:05 01/31/20 06:05 - Additional Planning My Orders: My Active Orders 01/30/20 12:00 guaiFENesin [Mucinex] 600 mg PO BID 01/30/20 16:27 Zolpidem [Ambien] 5 mg PO QPM PRN 01/31/20 09:00 Azithromycin [Zithromax] 250 mg PO DAILY Hydroxychloroquine [Plaquenil] 200 mg PO DAILY 01/31/20 12:45 ABG [Arterial Blood Gases - RT] [RC] .ONCE Chest 1 View X-Ray [XR] Stat ABG - ARTERIAL BLOOD GAS [BG] Stat Subjective - Subjective Patient Reports: Cough, Shortness of Breath, Other (Feel worse, "hurts in L ribcage area when coughs".) Objective Vital Signs: Vital Signs - 24 hr 01/30/20 01/30/20 01/30/20 13:00 14:15 15:00 Temperature 37.7 C H 36.9 C 36.9 C Heart Rate [ 80 Brachial] Respiratory 20 Rate Blood Pressure 126/58 L [Left Brachial artery] O2 Saturation 97 01/30/20 01/30/20 01/31/20 17:16 21:00 01:00 Temperature 37.1 C 37.0 C 37.3 C Heart Rate [ 86 81 100 Brachial] Respiratory 22 22 16 Rate Blood Pressure 118/56 L 125/60 147/86 H [Left Brachial artery] O2 Saturation 92 93 92 01/31/20 01/31/20 01/31/20 01:50 03:23 08:34 Temperature 38.7 C H 37.2 C 37.2 C Heart Rate [ 84 88 Brachial] Respiratory 18 22 Rate Blood Pressure 126/52 L 125/45 L [Left Brachial artery] O2 Saturation 93 95 01/31/20 12:45 Temperature 37.5 C Heart Rate [ 93 Brachial] Respiratory Rate Blood Pressure 136/80 H [Left Brachial artery] O2 Saturation 93 Oxygen O2 Source Nasal cannula Oxygen Flow Rate 2 I&O (Last 24 Hrs): Intake and Output Totals x24h 01/29/20 01/30/20 01/31/20 23:59 23:59 23:59 Intake Total 2610 3821.667 1300 Balance 2610 3821.667 1300 General: Alert, Oriented x3 HEENT: Mucous membr. moist/pink, Other (On O2 per oximizer) Neck: Supple Neuro: Other (Alert and moves spontaneously) Cardiovascular: Regular rate Respiratory: Other (Moderate resp distress with tachypnea and splinting, I saw her unable to expectorate her sputum) Abdomen: Soft Extremities: No edema - Results Results: Laboratory Results WBC 10.0 x10^3/uL (4.8-10.8) 01/31/20 06:05 RBC 3.67 10^6/uL (4.20-5.40) L 01/31/20 06:05 Hgb 10.7 g/dL (12.0-16.0) L 01/31/20 06:05 Hct 33.9 % (37.0-47.0) L 01/31/20 06:05 MCV 92.4 fL (81.0-99.0) 01/31/20 06:05 MCH 29.2 pg (27.0-31.0) 01/31/20 06:05 MCHC 31.6 g/dL (32.0-36.0) L 01/31/20 06:05 RDW 14.9 % (12.0-15.0) 01/31/20 06:05 Plt Count 367 10^3/uL (130-450) 01/31/20 06:05 MPV 10.5 fL (7.9-10.8) 01/31/20 06:05 Neut # (Auto) 7.0 10^3/uL (1.5-6.6) H 01/31/20 06:05 Lymph # (Auto) 2.4 10^3/uL (1.5-3.5) 01/31/20 06:05 [place] # (Auto) 0.4 10^3/uL (0.0-1.0) 01/31/20 06:05 Eos # (Auto) 0.1 10^3/uL (0.0-0.7) 01/31/20 06:05 Baso # (Auto) 0.0 10^3/uL (0.0-0.1) 01/31/20 06:05 Absolute Nucleated RBC 0.00 x10^3/uL 01/31/20 06:05 Nucleated RBC % 0.0 /100WBC 01/31/20 06:05 Manual Slide Review Indicated 01/29/20 10:05 WBC Morphology NORMAL APPEARANCE (NORMAL) 01/29/20 10:05 Platelet Estimate NORMAL (130-450,000) (NORMAL) 01/29/20 10:05 Platelet Morphology NORMAL APPEARANCE (NORMAL) 01/29/20 10:05 RBC Morph Micro Appear NORMAL APPEARANCE (NORMAL) 01/29/20 10:05 D-Dimer 280.3 ng/mL (200.0-255.0) H 01/29/20 10:05 Bld Gas Analysis Time 1736 01/29/20 17:30 Sample Site RIGHT RADIAL 01/29/20 17:30 ABG pH 7.48 (7.35-7.45) H 01/29/20 17:30 ABG pCO2 25 mmHg (34-45) L* 01/29/20 17:30 ABG pO2 133 mmHg (80-100) H 01/29/20 17:30 ABG HCO3 18.3 mmol/L (22.0-26.0) L 01/29/20 17:30 ABG Total CO2 19.0 MMOL/L (21.0-29.0) L 01/29/20 17:30 ABG O2 Saturation 98 % (94-98) 01/29/20 17:30 ABG Base Excess -3.9 mmol/L (-2.0-3.0) L 01/29/20 17:30 Kelvin Test POSITIVE 01/29/20 17:30 O2 Delivery Device NASAL CANNULA 01/29/20 17:30 O2 Liters/Min 2.00 LPM 01/29/20 17:30 Sodium 137 mmol/L (135-145) 01/31/20 06:05 Potassium 3.5 mmol/L (3.5-5.0) 01/31/20 06:05 Chloride 107 mmol/L (101-111) 01/31/20 06:05 Carbon Dioxide 20 mmol/L (21-32) L 01/31/20 06:05 Anion Gap 10.0 (6-13) 01/31/20 06:05 BUN 18 mg/dL (6-20) 01/31/20 06:05 Creatinine 1.1 mg/dL (0.4-1.0) H 01/31/20 06:05 Estimated GFR (MDRD) 50 (>89) L 01/31/20 06:05 Glucose 111 mg/dL (70-100) H 01/31/20 06:05 Calcium 7.9 mg/dL (8.5-10.3) L 01/31/20 06:05 Total Bilirubin 0.4 mg/dL (0.2-1.0) 01/31/20 06:05 AST 57 IU/L (10-42) H 01/31/20 06:05 ALT 31 IU/L (10-60) 01/31/20 06:05 Alkaline Phosphatase 68 IU/L (42-121) 01/31/20 06:05 C-Reactive Protein 19.0 mg/dL (0-1.0) H 01/31/20 06:05 B-Natriuretic Peptide 42 pg/mL (5-100) 01/29/20 10:05 Total Protein 5.5 g/dL (6.7-8.2) L 01/31/20 06:05 Albumin 2.4 g/dL (3.2-5.5) L 01/31/20 06:05 Globulin 3.1 g/dL (2.1-4.2) 01/31/20 06:05 Albumin/Globulin Ratio 0.8 (1.0-2.2) L 01/31/20 06:05 Lipase 24 U/L (22-51) 01/29/20 10:05 TSH 3.12 uIU/mL (0.34-5.60) 01/30/20 06:10 Influenza A (Rapid) Negative (Negative) 01/29/20 10:35 Influenza B (Rapid) Negative (Negative) 01/29/20 10:35
[2020-01-31 13:06] LABS: ABG BASE EXCESS -5.4 mmol/L (-2.0-3.0); ABG HCO3 17.3 mmol/L (22.0-26.0); ABG OXYGEN SATURATION 94 % (94-98); ABG PCO2 26 mmHg (34-45); ABG PH 7.45 (7.35-7.45); ABG PO2 69 mmHg (80-100)
[2020-01-31 13:07] LABS: ALLEN TEST POSITIVE
--- NOTE | 2020-01-31 14:16 | XRAY Report ---
Reason: Worsening O2 desats, COVID pneumonia Procedure Date: 01/31/2020 Accession Number: [id number] / [id number] Procedure: XR - Chest 1 View X-Ray CPT Code: 88114 Final Report FULL RESULT: EXAM: CHEST RADIOGRAPHY EXAM DATE: 01/31/2020 01:43 PM. CLINICAL HISTORY: Worsening O2 desats, COVID pneumonia. COMPARISON: CHEST 1 VIEW 01/29/2020 10:09 AM. TECHNIQUE: 1 view. FINDINGS: Lungs/Pleura: There are moderate to severe multifocal bilateral patchy airspace opacities, increased in density compared to the prior exam. No pleural effusion or pneumothorax. Lung volumes are slightly low, similar to prior. Mediastinum: Within exam limitations, the cardiomediastinal contour is normal. Other: No acute osseous abnormality. IMPRESSION: Increasing density of multifocal bilateral moderate to severe patchy airspace opacities. This may indicate developing ARDS, multifocal pneumonia, or viral/atypical infection. RADIA
[2020-01-31] MEDS: KETOROLAC 15 MG/ML VIAL IVP PRN (16:05)
[2020-01-31] MEDS: DEXMEDETOMIDINE 400 MCG/100 ML 100 ML IV SCH (18:50)
[2020-01-31] MEDS: MIDAZOLAM DRIP 50 MG/100 ML BAG IV SCH ×2 (18:56→22:22)
--- NOTE | 2020-01-31 19:15 | OPERATIVE REPORT ---
Operative Report - General Admit Date: 01/29/20 Procedure Date: 01/31/20 Pre-Op Diagnosis: COVID on vent need for BP monitoring and frequent blood gasses Procedure Performed: right radial artline placement Post Op Diagnosis: same - Procedure Note Primary Surgeon: Nelsy Mcconnell MD Indications: COVID on vent need for BP monitoring and frequent blood gasses - Other Other Information/Narrative: right wrist was placed positioned in the usual fashion and prepped in a steril fashion. Palpation of the radial artery was done and using the radial artery artline kit available access was obtained, wire was slid into place and the catheter was slid down the wire. The wire and kit was removed, pulsatile blood was confirmed and the catheter was connected to the pressurized tubing. The tubing was connected to the monitored and arterial wave form confirmed. The artline was then secured into place.
[2020-01-31 20:04] LABS: ABG BASE EXCESS -6.2 mmol/L (-2.0-3.0); ABG HCO3 19.6 mmol/L (22.0-26.0); ABG OXYGEN SATURATION 94 % (94-98); ABG PCO2 40 mmHg (34-45); ABG PH 7.31 (7.35-7.45); ABG PO2 80 mmHg (80-100); ABG TCO2 20.8 MMOL/L (21.0-29.0)
[2020-01-31] MEDS ORDERED: SODIUM CHLORIDE 0.9% 500 ML IV ONE ×2 (20:17→21:15)
--- NOTE | 2020-01-31 20:20 | XRAY Report ---
Reason: verify line placement Procedure Date: 01/31/2020 Accession Number: [id number] / [id number] Procedure: XR - Chest for Line Placement CPT Code: Final Report FULL RESULT: EXAM: CHEST RADIOGRAPHY EXAM DATE: 01/31/2020 07:05 PM. CLINICAL HISTORY: Verify line placement. COMPARISON: CHEST 1 VIEW 01/31/2020 1:19 PM. TECHNIQUE: 1 view. FINDINGS: Lungs/Pleura: Extensive bilateral upper lobe consolidation and patchy right lower lobe consolidation similar to the prior study. Multiple air bronchograms. No appreciable pleural effusion. Mediastinum: The mediastinal borders are obscured by the consolidation. Other: ETT and right IJV line have been introduced. The right IJV line terminates posterior to the clavicle. IMPRESSION: Ongoing consolidation. ETT in satisfactory position. Right IJV line terminates posterior to the clavicle. RADIA
--- NOTE | 2020-01-31 20:29 | ANESTHESIA PROCEDURE NOTE ---
Anesthesia Intubation Template - Intubation Blade: positive: Quach Tube: Size-enter number (7.5), Cuffed, Marked at teeth-enter cm (23) Route: Oral Placement Confirmation: End tidal CO2, Direct visualization, Bilateral breath sounds Complications: No complications
--- NOTE | 2020-01-31 20:30 | ANESTHESIA PROCEDURE NOTE ---
Anesth Central Line Template - Central Line Central Line Preparation: Consent Obtained Central line location: Right IJ Central line type: Triple lumen Central line catheter tip site resides: Jugular Central line aftercare: Chlorhexidine disc placed, Secured, Placement confirmed, Bundle checklist complete
[2020-01-31] MEDS ORDERED: VANCOMYCIN 1 GM VIAL ONE (21:20)
[2020-01-31] MEDS: PIPERACILLIN/TAZOBACTAM 3.375 GM in SODIUM CHLORIDE 0.9% MINIBAG 100 ML IV SCH (21:50)
[2020-01-31] MEDS: PANTOPRAZOLE 40 MG VIAL IVP SCH (22:26)
--- NOTE | 2020-01-31 22:54 | PROVIDER PROGRESS NOTE ---
Family Law Paralegal Note - Family Law Paralegal Note Family Law Paralegal Note: I was called to patient's room because she had become hypotensive with a SBP in the 60's-70's She was temporally placed on reverse trendelenberg and a 500ml bolus of normal saline given. Prior to this she had been receiving fluids at 100ml/hr. She received a total of 1000ml of fluid during this critical event, then her fluids were maintained at 100ml/hr. Her precedex had to be discontinued temporally due to her low SBP Levophed was started at 8mcg/min. This immediately improved her SBP to the 160's. As a result it was slowly titrated down. In the course of addressing her blood pressure and the precedex off, she became awake and was somewhat resisting the vent. She had significant secretions which were suctioned. She had a brief period of hypoxia when the tubing to the vent was dislodged. However her oxygenation readily improved to 100% with reconnection. The precedex was resumed after her blood pressure improved, versed was titrated up and the patient became calmer. Blood cultures were drawn. Lactic acid was <0.3. She was started on empiric antibiotics of vancomycin and zosyn. Levaquin was discontinued. She is also on azithromycin and hydroxychloroquine. Patient's vitals are stable after the interventions above. BP 116/91, P59, O2Sat 100%. 30 minutes of critical care time was spend on her care
--- NOTE | 2020-01-31 23:01 | XRAY Report ---
Reason: ng tube placement Procedure Date: 01/31/2020 Accession Number: [id number] / [id number] Procedure: XR - Chest for Line Placement CPT Code: Final Report FULL RESULT: EXAM: CHEST RADIOGRAPHY EXAM DATE: 01/31/2020 10:12 PM CLINICAL HISTORY: NG tube placement. COMPARISON: CHEST FOR LINE PLACEMENT 01/31/2020 5:53 PM. TECHNIQUE: 1 view. FINDINGS: Lungs/Pleura: Slight decrease in the moderate to severe multifocal airspace disease with air bronchograms. No pleural effusion. No pneumothorax. Mediastinum: Within exam limitations, the cardiomediastinal contour is unremarkable. Other: Endotracheal tube tip located 2.4 cm above the jacoby. Enteric tube tip is located in the left upper quadrant in the region of the stomach. Right IJ catheter tip located in the region of the inferior aspect of the right internal jugular vein. IMPRESSION: Slight decrease in the multifocal airspace disease. Enteric tube tip is located in the left upper quadrant in the region of the stomach. Other support hardware are also located in standard positions, as described above. RADIA
[2020-01-31 23:55] LABS: ABG BASE EXCESS -6.4 mmol/L (-2.0-3.0); ABG HCO3 17.8 mmol/L (22.0-26.0); ABG OXYGEN SATURATION 99 % (94-98); ABG PCO2 31 mmHg (34-45); ABG PH 7.38 (7.35-7.45); ABG PO2 253 mmHg (80-100); ABG TCO2 18.8 MMOL/L (21.0-29.0)
[2020-02-01] MEDS: SODIUM CHLORIDE FLUSH 0.9% 10 ML SYRINGE IVP SCH ×8 (00:43→23:53)
[2020-02-01] MEDS: DEXMEDETOMIDINE 400 MCG/100 ML 100 ML IV SCH ×3 (02:06→23:14)
[2020-02-01 02:22] LABS: ABG BASE EXCESS -6.5 mmol/L (-2.0-3.0); ABG HCO3 17.5 mmol/L (22.0-26.0); ABG OXYGEN SATURATION 99 % (94-98); ABG PCO2 30 mmHg (34-45); ABG PH 7.39 (7.35-7.45); ABG TCO2 18.4 MMOL/L (21.0-29.0)
[2020-02-01 02:23] LABS: ABG PO2 197 mmHg (80-100)
[2020-02-01] MEDS ORDERED: MIDAZOLAM 50 MG/10 ML VIAL ONE (02:59)
[2020-02-01] MEDS: MIDAZOLAM DRIP 50 MG/100 ML BAG IV SCH ×5 (03:07→23:38)
[2020-02-01] MEDS: PIPERACILLIN/TAZOBACTAM 3.375 GM in SODIUM CHLORIDE 0.9% MINIBAG 100 ML IV SCH ×4 (04:34→22:23)
[2020-02-01 05:02] LABS: BASOPHILS % (AUTO) 0.3 %; EOSINOPHILS # (AUTO) 0.1 10^3/uL (0.0-0.7); EOSINOPHILS % (AUTO) 0.8 %; HGB - HEMOGLOBIN 9.7 g/dL (12.0-16.0); MEAN CORPUSCULAR HEMOGLOBIN 28.6 pg (27.0-31.0); MEAN CORPUSCULAR VOLUME 92.3 fL (81.0-99.0); MONOCYTES # (AUTO) 0.6 10^3/uL (0.0-1.0); NEUTROPHILS % (AUTO) 67.3 %; PLT - PLATELET COUNT 347 10^3/uL (130-450); RED BLOOD COUNT 3.39 10^6/uL (4.20-5.40); RED CELL DISTRIBUTION WIDTH 14.9 % (12.0-15.0); WHITE BLOOD COUNT 8.9 x10^3/uL (4.8-10.8)
[2020-02-01 05:20] LABS: ALBUMIN/GLOBULIN RATIO 0.7 (1.0-2.2); BILIRUBIN,TOTAL 0.6 mg/dL (0.2-1.0); CALCIUM 7.7 mg/dL (8.5-10.3); CREATININE 0.8 mg/dL (0.4-1.0); CRP - C-REACTIVE PROTEIN 16.4 mg/dL (0-1.0); TOTAL PROTEIN 4.9 g/dL (6.7-8.2)
[2020-02-01 05:31] LABS: PHOSPHORUS 3.3 mg/dL (2.5-4.6)
[2020-02-01 05:48] LABS: ABG BASE EXCESS -12.1 mmol/L (-2.0-3.0); ABG HCO3 11.6 mmol/L (22.0-26.0); ABG OXYGEN SATURATION 98 % (94-98); ABG PH 7.39 (7.35-7.45); ABG PO2 146 mmHg (80-100); ABG TCO2 12.2 MMOL/L (21.0-29.0)
[2020-02-01 05:50] LABS: ABG PCO2 19 mmHg (34-45)
[2020-02-01] MEDS: LEVOTHYROXINE 125 MCG TABLET PO SCH (06:38)
--- NOTE | 2020-02-01 08:07 | PHARMACY PROGRESS NOTE ---
- Therapy Status Vancomycin regimen day #: 2 Therapy status: Awaiting steady state Basis for treatment: Empirical Treatment indication: pneumonia Trough goal: 15-20 Concurrent antibiotics: zosyn - JANICE Risk Risk level for Acute Kidney Injury: High Acute Kidney Injury risk factors: Piperacillin/Tozobactam, Wt >100kg or BMI >40, Goal trough >15, Admission to ICU - Monitoring and Recommendation Clinical response to treatment: I&O Previous 24 hours 01/30/20 01/31/20 02/01/20 23:59 23:59 23:59 Intake Total 3821.667 4817.639 471.416 Output Total 925 711 Balance 3821.667 3892.639 -239.584 Lab Results 02/01/20 01/31/20 01/30/20 04:40 06:05 06:10 BUN 15 18 22 H Creatinine 0.8 1.1 H 1.1 H Estimated GFR (MDRD) 73 L 50 L 50 L 01/29/20 10:05 BUN 20 Creatinine 1.1 H Estimated GFR (MDRD) 50 L Monitoring plan: Daily serum creatinine Next trough due prior to maintenance dose #: 3 Next trough due (date/time): 02/01 at 0930 per protocol Areas for additional monitoring: IV to PO when appropriate, Therapy de- escalation based on culture results, Acute Kidney Injury Pharmacy recommendation: Continue current regime (Loading dose (2g) given overnight; maintenance dose starting at 1.75 g IV q12h per protocol; per [facility] advanced dosing calc; CrCl; ~ 89. Trough ordered for 02/01- Recommending evaluating trough, renal function, and relevant clinical parameters and dose adjusting accordingly)
[2020-02-01] MEDS: ENOXAPARIN 40 MG/0.4 ML SYRINGE SUBQ SCH (08:33)
[2020-02-01] MEDS: guaiFENesin 600 MG TABLET PO SCH ×2 (08:35→20:59)
[2020-02-01] MEDS: HYDROXYCHLOROQUINE 200 MG TABLET PO SCH ×2 (08:35→21:05)
[2020-02-01] MEDS: DULoxetine 30 MG CAPSULE PO SCH (08:45)
[2020-02-01] MEDS: SODIUM CHLORIDE 0.9% 1,000 ML IV SCH ×2 (08:51→18:02)
[2020-02-01] MEDS: AZITHROMYCIN 250 MG TABLET PO SCH (08:55)
--- NOTE | 2020-02-01 09:47 | XRAY Report ---
Reason: F/U COVID pneumonia, on vent Procedure Date: 02/01/2020 Accession Number: [id number] / [id number] Procedure: XR - Chest 1 View X-Ray CPT Code: 78769 Final Report FULL RESULT: EXAM: CHEST RADIOGRAPHY EXAM DATE: 02/01/2020 09:38 AM. CLINICAL HISTORY: Follow up COVID pneumonia, on ventilator. COMPARISON: CHEST FOR LINE PLACEMENT 01/31/2020 9:46 PM CHEST 1 VIEW 01/31/2020 1:19 PM CHEST 1 VIEW 01/29/2020 10:09 AM. TECHNIQUE: 1 view. FINDINGS: Lungs/Pleura: Extensive bilateral interstitial and airspace opacities are again seen. There is a left pleural effusion. No pneumothorax. Mediastinum: Heart size and mediastinal contour are stable Other: Right IJ catheter is unchanged. ET tube again seen with the tip 4.9 cm from the jacoby. Orogastric tube present with the tip in the proximal stomach, as before. IMPRESSION: 1. Extensive bilateral interstitial and airspace opacities without significant change. 2. No pneumothorax. 3. Small left pleural effusion. RADIA
[2020-02-01] MEDS: PANTOPRAZOLE 40 MG VIAL IVP SCH ×2 (09:51→20:59)
[2020-02-01] MEDS: FAMOTIDINE 20 MG TABLET PO SCH (09:53)
[2020-02-01] MEDS: VANCOMYCIN INJ 1.75 GM in SODIUM CHLORIDE 0.9% 500 ML IV SCH ×2 (09:57→23:36)
[2020-02-01] MEDS ORDERED: VANCOMYCIN INJ 1.25 GM in SODIUM CHLORIDE 0.9% 250 ML IV SCH (10:00)
--- NOTE | 2020-02-01 16:10 | PROVIDER PROGRESS NOTE ---
Assessment/Plan - Problem List (1) Hypotension Assessment/Plan: Besides IV hydration continuously, she has needed pressor support using IV Levophed since yesterday evening. Today it was weaned to off but after 2 hours she again became hypotensive. Along with this she is bradycardic in the 40s to 50. We will try Dopamine IV drip for both increasing blood pressure and heart rate (2) Bradycardia Assessment/Plan: It is unclear why this lady without prior cardiac disease has bradycardia. It started since she was intubated and sedated on iv Versed and iv Precedex. Avoid heart rate slowing medications. We will try to use iv Dopamine for pressor support and heart rate support. (3) Pneumonia due to 2019 novel coronavirus Assessment/Plan: This patient is here from [place] helping care for her mother, was staying at her sister's house, and probably caught the virus during the air travel. She also has CLL and is immunocompromised. Patient had a positive COVID test when she did a drive through test at our tent. She tried to work through a cough and fever at home for about a week before presenting. Her chest x-ray has worsened and supplemental oxygen demands have increased. She needed to be transferred to the ICU yesterday and intubated. Continue Zithromax for the community-acquired pneumonia plus this diagnosis. Continue hydroxychloroquine. (4) ARDS (adult respiratory distress syndrome) Assessment/Plan: Patient is on the ventilator. Her peak pressures are not excessive. She does have a history of asthma/COPD and was on inhalers at home. We will try not to use IV steroids or inline nebs with a COVID pneumonia (5) CAP (community acquired pneumonia) Assessment/Plan: As above (6) Hypothyroidism Assessment/Plan: She was on p.o. home dose of thyroid replacement. Will change to IV every 5 day replacement (7) Anemia Assessment/Plan: Follow CBC daily, transfuse if Hgb <7 (8) CLL (chronic lymphocytic leukemia) Assessment/Plan: She was getting her "Patient on dose" chemotherapy during the first 2 days of hospitalization here, and was in contact with her Oncologist in [place]. (9) Anxiety Assessment/Plan: She was on duloxetine orally. She reported that she will need anxiolytics while being on the ventilator electively. 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 There are certain medications that will be avoided because of this diagnosis. (11) JANICE (acute kidney injury) Assessment/Plan: Resolved with iv hydration - Current Meds Current Meds: Current Medications Generic Name Dose Route Start Last Admin Trade Name Freq PRN Reason Stop Dose Admin Acetaminophen 650 mg 01/29/20 12:48 01/31/20 01:51 Tylenol PO 650 mg Q4HR PRN Administration Pain 1 to 4 Azithromycin 250 mg 01/31/20 09:00 02/01/20 08:55 Zithromax PO 02/03/20 09:01 250 mg DAILY CORONA Administration Duloxetine HCl 120 mg 01/30/20 09:00 02/01/20 08:45 Cymbalta PO 120 mg DAILY CORONA Administration Enoxaparin Sodium 40 mg 01/30/20 09:00 02/01/20 08:33 Lovenox SUBQ 40 mg DAILY CORONA Administration Guaifenesin 600 mg 01/30/20 12:00 02/01/20 08:35 Mucinex PO 600 mg BID CORONA Administration Hydroxychloroquine Sulfate 200 mg 01/31/20 09:00 02/01/20 08:35 Plaquenil PO 02/03/20 09:01 200 mg DAILY CORONA Administration Sodium Chloride 1,000 mls @ 100 mls/hr 01/29/20 14:30 02/01/20 08:51 Normal Saline 0.9% IV 100 mls/hr .Q10H CORONA Administration Dexmedetomidine/Sodium Chloride 100 mls @ 5.783 mls/hr 01/31/20 19:00 02/01/20 14:00 Precedex Premix IV 0.4 mcg/kg/hr .[id number] CORONA 11.567 mls/hr Administration Protocol 0.2 MCG/KG/HR Midazolam HCl 50 mg in 100 mls @ 9.253 mls/hr 01/31/20 19:00 02/01/20 14:41 Versed Drip IV 0.09 mg/kg/hr .[id number] CORONA 20.82 mls/hr Titration Protocol 0.04 MG/KG/HR Norepinephrine Bitartrate 8 mg 250 mls @ 15 mls/hr 01/31/20 22:00 02/01/20 08:26 / Dextrose IV 0 mcg/min .[id number] CORONA 0 mls/hr Titration Protocol 8 MCG/MIN Piperacillin Sod/Tazobactam 100 mls @ 200 mls/hr 01/31/20 22:00 02/01/20 10:30 Sod 3.375 gm/ Sodium Chloride IV Infused Q6H CORONA Infusion Vancomycin HCl 1.75 gm/ Sodium 500 mls @ 250 mls/hr 02/01/20 10:00 02/01/20 12:00 Chloride IV Infused Q12H CORONA Infusion Ketorolac Tromethamine 15 mg 01/29/20 17:48 01/31/20 16:05 Toradol Inj (15mg) IVP 02/03/20 17:47 15 mg Q6HR PRN Administration PAIN Levothyroxine Sodium 125 mcg 01/30/20 07:00 02/01/20 06:38 Synthroid PO 125 mcg QDAC CORONA Administration Pantoprazole Sodium 40 mg 01/31/20 21:00 02/01/20 09:51 Protonix IVP 40 mg BID CORONA Administration Sodium Chloride 10 ml 01/29/20 17:00 02/01/20 09:51 Normal Saline Flush 0.9% IVP 10 ml 0100,0900,1700 CORONA Administration Sodium Chloride 10 ml 02/01/20 01:00 02/01/20 09:51 Normal Saline Flush 0.9% IVP 10 ml 0100,0900,1700 CORONA Administration Zolpidem Tartrate 5 mg 01/30/20 16:27 01/30/20 20:38 Ambien PO 5 mg QPM PRN Administration Insomnia - Lab Result Fish Bone Diagrams: 02/01/20 04:40 02/01/20 04:40 - Additional Planning My Orders: My Active Orders 01/31/20 16:42 Arterial Line Care - ICU [RC] Q2HR Arterial Line Insertion - ICU [RC] .ONCE 01/31/20 17:27 Ventilator Bundle Oral Care [RC] Q2H Ventilator Bundle [RC] Q8H 01/31/20 17:28 Central Line Insertion [RC] ONCE Tube Feeding [RC] QSHIFT 01/31/20 17:29 Daily Weight [RC] 0600 Hernandez Insertion [RC] QSHIFT IO [RC] Q1HR Initiate Bowel Care Protocol [RC] QSHIFT Initiate Flu Vaccine Screening [RC] ONCE Initiate ICU Electrolyte Prot. [RC] .protocol Initiate Line Care Protocol [RC] .protocol Initiate Personal Care Protoco [RC] .protocol Initiate Pneumonia Vaccine Scr [RC] ONCE Vital Signs [RC] Q1HR Sodium Chloride Flush 0.9% [Normal Saline Flush 0.9%] 10 ml IVP PRN PRN Code Status [OTHERS] Routine 01/31/20 17:30 NPO [DIET] 01/31/20 17:31 Oral Care - Nursing [RC] Routine Turn and Reposition [RC] Routine 01/31/20 19:00 Dexmedetomidine 400 Mcg/100 ml [Precedex Premix] 100 ml IV 0.2 mcg/kg/hr Midazolam Drip [Versed Drip] 50 mg in 100 ml IV 0.04 mg/kg/hr 01/31/20 19:51 ABG [Arterial Blood Gases - RT] [RC] .ONCE 01/31/20 21:00 Pantoprazole [Protonix] 40 mg IVP BID 02/01/20 01:00 Sodium Chloride Flush 0.9% [Normal Saline Flush 0.9%] 10 ml IVP 0100,0900,1700 02/02/20 05:00 ABG - ARTERIAL BLOOD GAS [BG] DAILYLAB MAGNESIUM [CHEM] DAILYLAB PHOSPHORUS [CHEM] DAILYLAB 02/02/20 09:00 Chest 1 View X-Ray [XR] DAILY 02/03/20 05:00 ABG - ARTERIAL BLOOD GAS [BG] DAILYLAB MAGNESIUM [CHEM] DAILYLAB PHOSPHORUS [CHEM] DAILYLAB 02/04/20 05:00 MAGNESIUM [CHEM] DAILYLAB PHOSPHORUS [CHEM] DAILYLAB Subjective - Subjective Nursing Reports: Sedated Objective Vital Signs: Vital Signs - 24 hr 01/31/20 01/31/20 01/31/20 17:18 19:00 19:45 Temperature Heart Rate 71 79 Heart Rate [ 104 H Brachial] Respiratory 20 Rate Blood Pressure Blood Pressure 159/80 H [Left Brachial artery] O2 Saturation 96 01/31/20 01/31/20 01/31/20 20:00 21:00 21:45 Temperature 36.6 C Heart Rate 61 Heart Rate [ 82 81 Brachial] Respiratory 23 25 H Rate Blood Pressure Blood Pressure 105/62 174/89 H [Left Brachial artery] O2 Saturation 98 94 01/31/20 01/31/20 01/31/20 22:00 22:40 22:42 Temperature Heart Rate 59 L Heart Rate [ 62 Brachial] Respiratory 22 36 H Rate Blood Pressure 116/91 H Blood Pressure 128/82 H [Left Brachial artery] O2 Saturation 100 01/31/20 01/31/20 01/31/20 22:45 22:50 22:55 Temperature Heart Rate 58 L 60 58 L Heart Rate [ Brachial] Respiratory 19 21 22 Rate Blood Pressure Blood Pressure [Left Brachial artery] O2 Saturation 01/31/20 01/31/20 01/31/20 22:59 23:00 23:01 Temperature Heart Rate 57 L 57 L 57 L Heart Rate [ 57 L Brachial] Respiratory 22 22 22 Rate Blood Pressure 155/92 H Blood Pressure 155/92 H [Left Brachial artery] O2 Saturation 100 01/31/20 01/31/20 01/31/20 23:05 23:10 23:15 Temperature Heart Rate 56 L 56 L 56 L Heart Rate [ Brachial] Respiratory 22 22 22 Rate Blood Pressure Blood Pressure [Left Brachial artery] O2 Saturation 01/31/20 01/31/20 01/31/20 23:20 23:25 23:30 Temperature Heart Rate 55 L 54 L 53 L Heart Rate [ Brachial] Respiratory 22 22 22 Rate Blood Pressure Blood Pressure [Left Brachial artery] O2 Saturation 01/31/20 01/31/20 01/31/20 23:31 23:35 23:40 Temperature Heart Rate 53 L 53 L 62 Heart Rate [ Brachial] Respiratory 22 Rate Blood Pressure 143/95 H Blood Pressure [Left Brachial artery] O2 Saturation 01/31/20 01/31/20 01/31/20 23:45 23:48 23:50 Temperature Heart Rate 58 L 55 L 62 Heart Rate [ Brachial] Respiratory Rate Blood Pressure Blood Pressure [Left Brachial artery] O2 Saturation 01/31/20 01/31/20 02/01/20 23:55 23:59 00:00 Temperature 36.4 C L Heart Rate 55 L 54 L 55 L Heart Rate [ 55 L Brachial] Respiratory 20 Rate Blood Pressure 138/90 H Blood Pressure 138/90 H [Left Brachial artery] O2 Saturation 100 02/01/20 02/01/20 02/01/20 00:01 00:05 00:10 Temperature Heart Rate 53 L 55 L 52 L Heart Rate [ Brachial] Respiratory 20 Rate Blood Pressure Blood Pressure [Left Brachial artery] O2 Saturation 02/01/20 02/01/20 02/01/20 00:15 00:20 00:25 Temperature Heart Rate 53 L 53 L 54 L Heart Rate [ Brachial] Respiratory 20 21 20 Rate Blood Pressure Blood Pressure [Left Brachial artery] O2 Saturation 02/01/20 02/01/20 02/01/20 00:29 00:30 00:31 Temperature Heart Rate 53 L 53 L 54 L Heart Rate [ Brachial] Respiratory 20 20 20 Rate Blood Pressure 135/87 H Blood Pressure [Left Brachial artery] O2 Saturation 02/01/20 02/01/20 02/01/20 00:35 00:40 00:45 Temperature Heart Rate 52 L 53 L 58 L Heart Rate [ Brachial] Respiratory 20 20 21 Rate Blood Pressure Blood Pressure [Left Brachial artery] O2 Saturation 02/01/20 02/01/20 02/01/20 00:50 00:55 00:59 Temperature Heart Rate 56 L 54 L 52 L Heart Rate [ Brachial] Respiratory 19 20 20 Rate Blood Pressure Blood Pressure [Left Brachial artery] O2 Saturation 02/01/20 02/01/20 02/01/20 01:00 01:01 01:05 Temperature Heart Rate 53 L 54 L 52 L Heart Rate [ 52 L Brachial] Respiratory 20 20 20 Rate Blood Pressure 144/91 H Blood Pressure 144/91 H [Left Brachial artery] O2 Saturation 100 02/01/20 02/01/20 02/01/20 01:10 01:15 01:20 Temperature Heart Rate 51 L 51 L 52 L Heart Rate [ Brachial] Respiratory 20 20 20 Rate Blood Pressure Blood Pressure [Left Brachial artery] O2 Saturation 02/01/20 02/01/20 02/01/20 01:25 01:29 01:30 Temperature Heart Rate 51 L 49 L 52 L Heart Rate [ Brachial] Respiratory 20 20 20 Rate Blood Pressure 140/91 H Blood Pressure [Left Brachial artery] O2 Saturation 02/01/20 02/01/20 02/01/20 01:31 01:35 01:40 Temperature Heart Rate 50 L 51 L 51 L Heart Rate [ Brachial] Respiratory 20 20 20 Rate Blood Pressure Blood Pressure [Left Brachial artery] O2 Saturation 02/01/20 02/01/20 02/01/20 01:45 01:50 01:55 Temperature Heart Rate 49 L 52 L 52 L Heart Rate [ Brachial] Respiratory 20 20 21 Rate Blood Pressure Blood Pressure [Left Brachial artery] O2 Saturation 02/01/20 02/01/20 02/01/20 01:59 02:00 02:01 Temperature Heart Rate 52 L 52 L 49 L Heart Rate [ 49 L Brachial] Respiratory 20 20 20 Rate Blood Pressure 153/90 H Blood Pressure 153/90 H [Left Brachial artery] O2 Saturation 100 02/01/20 02/01/20 02/01/20 02:05 02:10 02:15 Temperature Heart Rate 50 L 51 L 51 L Heart Rate [ Brachial] Respiratory 20 20 20 Rate Blood Pressure Blood Pressure [Left Brachial artery] O2 Saturation 02/01/20 02/01/20 02/01/20 02:20 02:25 02:30 Temperature Heart Rate 51 L 49 L 51 L Heart Rate [ Brachial] Respiratory 20 20 20 Rate Blood Pressure Blood Pressure [Left Brachial artery] O2 Saturation 02/01/20 02/01/20 02/01/20 02:31 02:35 02:40 Temperature Heart Rate 52 L 51 L 51 L Heart Rate [ Brachial] Respiratory 20 20 20 Rate Blood Pressure 110/76 Blood Pressure [Left Brachial artery] O2 Saturation 02/01/20 02/01/20 02/01/20 02:45 02:50 02:55 Temperature Heart Rate 51 L 49 L 49 L Heart Rate [ Brachial] Respiratory 20 20 20 Rate Blood Pressure Blood Pressure [Left Brachial artery] O2 Saturation 02/01/20 02/01/20 02/01/20 02:59 03:00 03:01 Temperature Heart Rate 49 L 52 L 50 L Heart Rate [ 50 L Brachial] Respiratory 17 20 20 Rate Blood Pressure 84/56 L Blood Pressure 84/56 L [Left Brachial artery] O2 Saturation 99 02/01/20 02/01/20 02/01/20 03:05 03:10 03:15 Temperature Heart Rate 45 L 47 L 48 L Heart Rate [ Brachial] Respiratory 20 20 20 Rate Blood Pressure Blood Pressure [Left Brachial artery] O2 Saturation 02/01/20 02/01/20 02/01/20 03:20 03:25 03:29 Temperature Heart Rate 53 L 47 L 49 L Heart Rate [ Brachial] Respiratory 20 20 20 Rate Blood Pressure Blood Pressure [Left Brachial artery] O2 Saturation 02/01/20 02/01/20 02/01/20 03:30 03:31 03:35 Temperature Heart Rate 47 L 46 L 48 L Heart Rate [ Brachial] Respiratory 20 20 20 Rate Blood Pressure 153/94 H Blood Pressure [Left Brachial artery] O2 Saturation 02/01/20 02/01/20 02/01/20 03:40 03:45 03:50 Temperature Heart Rate 49 L 51 L 59 L Heart Rate [ Brachial] Respiratory 20 20 20 Rate Blood Pressure Blood Pressure [Left Brachial artery] O2 Saturation 02/01/20 02/01/20 02/01/20 03:55 03:59 04:00 Temperature 36.4 C L Heart Rate 52 L 48 L 48 L Heart Rate [ 47 L Brachial] Respiratory 20 20 20 Rate Blood Pressure 161/85 H Blood Pressure 161/85 H [Left Brachial artery] O2 Saturation 100 02/01/20 02/01/20 02/01/20 04:01 04:05 04:07 Temperature Heart Rate 46 L 48 L 49 L Heart Rate [ Brachial] Respiratory 20 20 Rate Blood Pressure Blood Pressure [Left Brachial artery] O2 Saturation 02/01/20 02/01/20 02/01/20 04:10 04:15 04:20 Temperature Heart Rate 52 L 49 L 49 L Heart Rate [ Brachial] Respiratory 20 20 20 Rate Blood Pressure Blood Pressure [Left Brachial artery] O2 Saturation 02/01/20 02/01/20 02/01/20 04:25 04:29 04:30 Temperature Heart Rate 48 L 48 L 49 L Heart Rate [ Brachial] Respiratory 20 20 20 Rate Blood Pressure 167/94 H Blood Pressure [Left Brachial artery] O2 Saturation 02/01/20 02/01/20 02/01/20 04:31 04:35 04:40 Temperature Heart Rate 47 L 47 L 48 L Heart Rate [ Brachial] Respiratory 20 20 20 Rate Blood Pressure Blood Pressure [Left Brachial artery] O2 Saturation 02/01/20 02/01/20 02/01/20 04:45 04:50 04:55 Temperature Heart Rate 50 L 50 L 52 L Heart Rate [ Brachial] Respiratory 20 20 21 Rate Blood Pressure Blood Pressure [Left Brachial artery] O2 Saturation 02/01/20 02/01/20 02/01/20 05:00 05:01 06:00 Temperature Heart Rate 51 L 49 L Heart Rate [ 49 L 50 L Brachial] Respiratory 20 20 20 Rate Blood Pressure 131/89 H Blood Pressure 131/89 H 122/85 H [Left Brachial artery] O2 Saturation 100 96 02/01/20 02/01/20 02/01/20 06:03 06:54 07:00 Temperature Heart Rate 47 L 48 L Heart Rate [ 48 L Brachial] Respiratory 20 Rate Blood Pressure Blood Pressure 137/84 H [Left Brachial artery] O2 Saturation 97 02/01/20 02/01/20 02/01/20 07:20 07:25 07:29 Temperature Heart Rate 48 L 48 L 48 L Heart Rate [ Brachial] Respiratory 20 20 20 Rate Blood Pressure Blood Pressure [Left Brachial artery] O2 Saturation 02/01/20 02/01/20 02/01/20 07:30 07:31 07:35 Temperature Heart Rate 47 L 48 L 49 L Heart Rate [ Brachial] Respiratory 20 20 20 Rate Blood Pressure 127/84 H Blood Pressure [Left Brachial artery] O2 Saturation 02/01/20 02/01/20 02/01/20 07:40 07:45 07:50 Temperature Heart Rate 48 L 49 L 49 L Heart Rate [ Brachial] Respiratory 20 20 20 Rate Blood Pressure Blood Pressure [Left Brachial artery] O2 Saturation 02/01/20 02/01/20 02/01/20 07:53 07:54 07:55 Temperature Heart Rate 48 L 48 L 47 L Heart Rate [ Brachial] Respiratory 20 20 20 Rate Blood Pressure 129/81 H Blood Pressure [Left Brachial artery] O2 Saturation 02/01/20 02/01/20 02/01/20 07:59 08:00 08:01 Temperature Heart Rate 51 L 48 L 49 L Heart Rate [ 48 L Brachial] Respiratory 20 20 20 Rate Blood Pressure 119/77 Blood Pressure 119/77 [Left Brachial artery] O2 Saturation 98 02/01/20 02/01/20 02/01/20 08:05 08:10 08:14 Temperature Heart Rate 49 L 47 L 49 L Heart Rate [ Brachial] Respiratory 20 20 20 Rate Blood Pressure Blood Pressure [Left Brachial artery] O2 Saturation 02/01/20 02/01/20 02/01/20 08:15 08:16 08:18 Temperature Heart Rate 46 L 48 L 49 L Heart Rate [ Brachial] Respiratory 20 20 20 Rate Blood Pressure 116/79 Blood Pressure [Left Brachial artery] O2 Saturation 02/01/20 02/01/20 02/01/20 08:19 08:20 08:25 Temperature Heart Rate 48 L 49 L 50 L Heart Rate [ Brachial] Respiratory 20 20 20 Rate Blood Pressure 128/77 Blood Pressure [Left Brachial artery] O2 Saturation 02/01/20 02/01/20 02/01/20 08:30 08:31 08:32 Temperature Heart Rate 50 L 49 L 50 L Heart Rate [ Brachial] Respiratory 23 20 20 Rate Blood Pressure 98/64 Blood Pressure [Left Brachial artery] O2 Saturation 02/01/20 02/01/20 02/01/20 08:35 08:40 08:45 Temperature Heart Rate 47 L 47 L 48 L Heart Rate [ Brachial] Respiratory 20 20 20 Rate Blood Pressure Blood Pressure [Left Brachial artery] O2 Saturation 02/01/20 02/01/20 02/01/20 08:46 08:50 08:55 Temperature Heart Rate 48 L 51 L 50 L Heart Rate [ Brachial] Respiratory 20 20 20 Rate Blood Pressure 106/75 Blood Pressure [Left Brachial artery] O2 Saturation 02/01/20 02/01/20 02/01/20 08:57 09:00 09:01 Temperature Heart Rate 49 L 48 L 50 L Heart Rate [ 49 L Brachial] Respiratory 20 20 Rate Blood Pressure 107/73 Blood Pressure 107/73 [Left Brachial artery] O2 Saturation 97 02/01/20 02/01/20 02/01/20 09:05 09:10 09:15 Temperature Heart Rate 49 L 50 L 52 L Heart Rate [ Brachial] Respiratory 20 21 22 Rate Blood Pressure Blood Pressure [Left Brachial artery] O2 Saturation 02/01/20 02/01/20 02/01/20 09:16 09:20 09:25 Temperature Heart Rate 48 L 46 L 44 L Heart Rate [ Brachial] Respiratory 21 20 20 Rate Blood Pressure 98/68 Blood Pressure [Left Brachial artery] O2 Saturation 02/01/20 02/01/20 02/01/20 09:30 09:31 09:35 Temperature Heart Rate 48 L 48 L 48 L Heart Rate [ Brachial] Respiratory 20 20 20 Rate Blood Pressure 98/71 Blood Pressure [Left Brachial artery] O2 Saturation 02/01/20 02/01/20 02/01/20 09:40 09:45 09:46 Temperature Heart Rate 50 L 47 L 48 L Heart Rate [ Brachial] Respiratory 19 20 19 Rate Blood Pressure 100/69 Blood Pressure [Left Brachial artery] O2 Saturation 02/01/20 02/01/20 02/01/20 09:50 09:55 10:00 Temperature Heart Rate 50 L 47 L 48 L Heart Rate [ 47 L Brachial] Respiratory 20 20 20 Rate Blood Pressure Blood Pressure 100/71 [Left Brachial artery] O2 Saturation 97 02/01/20 02/01/20 02/01/20 10:33 11:00 12:00 Temperature 36.4 C L Heart Rate 44 L Heart Rate [ 49 L 48 L Brachial] Respiratory 20 19 Rate Blood Pressure Blood Pressure 92/64 93/50 L [Left Brachial artery] O2 Saturation 95 96 02/01/20 02/01/20 02/01/20 12:10 13:00 14:00 Temperature Heart Rate 48 L Heart Rate [ 47 L 47 L Brachial] Respiratory 20 20 Rate Blood Pressure Blood Pressure 98/67 97/64 [Left Brachial artery] O2 Saturation 95 96 02/01/20 02/01/20 15:00 15:16 Temperature Heart Rate 46 L Heart Rate [ 48 L Brachial] Respiratory 20 Rate Blood Pressure Blood Pressure 86/58 L [Left Brachial artery] O2 Saturation 96 Oxygen O2 Source Mechanical ventilator Oxygen Flow Rate 2 I&O (Last 24 Hrs): Intake and Output Totals x24h 01/30/20 01/31/20 02/01/20 23:59 23:59 23:59 Intake Total 3821.667 4817.639 2417.091 Output Total 925 830 Balance 3821.667 3892.639 1587.091 General: Other (sedated) HEENT: Mucous membr. moist/pink, Other (ET tube and Dobhoff tube in place, getting ng feeds) Neck: No JVD Neuro: Other (sedated) Cardiovascular: Regular rate Respiratory: No respiratory distress, Breath sounds nml, Other (On vent) Abdomen: Soft Extremities: No edema - Results Results: Laboratory Results WBC 8.9 x10^3/uL (4.8-10.8) 02/01/20 04:40 RBC 3.39 10^6/uL (4.20-5.40) L 02/01/20 04:40 Hgb 9.7 g/dL (12.0-16.0) L 02/01/20 04:40 Hct 31.3 % (37.0-47.0) L 02/01/20 04:40 MCV 92.3 fL (81.0-99.0) 02/01/20 04:40 MCH 28.6 pg (27.0-31.0) 02/01/20 04:40 MCHC 31.0 g/dL (32.0-36.0) L 02/01/20 04:40 RDW 14.9 % (12.0-15.0) 02/01/20 04:40 Plt Count 347 10^3/uL (130-450) 02/01/20 04:40 MPV 10.0 fL (7.9-10.8) 02/01/20 04:40 Neut # (Auto) 6.0 10^3/uL (1.5-6.6) 02/01/20 04:40 Lymph # (Auto) 2.0 10^3/uL (1.5-3.5) 02/01/20 04:40 Petroleum # (Auto) 0.6 10^3/uL (0.0-1.0) 02/01/20 04:40 Eos # (Auto) 0.1 10^3/uL (0.0-0.7) 02/01/20 04:40 Baso # (Auto) 0.0 10^3/uL (0.0-0.1) 02/01/20 04:40 Absolute Nucleated RBC 0.00 x10^3/uL 02/01/20 04:40 Nucleated RBC % 0.0 /100WBC 02/01/20 04:40 Manual Slide Review Indicated 01/29/20 10:05 WBC Morphology NORMAL APPEARANCE (NORMAL) 01/29/20 10:05 Platelet Estimate NORMAL (130-450,000) (NORMAL) 01/29/20 10:05 Platelet Morphology NORMAL APPEARANCE (NORMAL) 01/29/20 10:05 RBC Morph Micro Appear NORMAL APPEARANCE (NORMAL) 01/29/20 10:05 D-Dimer 280.3 ng/mL (200.0-255.0) H 01/29/20 10:05 Bld Gas Analysis Time 0547 02/01/20 05:40 Sample Site A-LINE 02/01/20 02:10 ABG pH 7.39 (7.35-7.45) 02/01/20 05:40 ABG pCO2 19 mmHg (34-45) L* 02/01/20 05:40 ABG pO2 146 mmHg (80-100) H 02/01/20 05:40 ABG HCO3 11.6 mmol/L (22.0-26.0) L 02/01/20 05:40 ABG Total CO2 12.2 MMOL/L (21.0-29.0) L 02/01/20 05:40 ABG O2 Saturation 98 % (94-98) 02/01/20 05:40 ABG Base Excess -12.1 mmol/L (-2.0-3.0) L 02/01/20 05:40 Kelvin Test NOT APPLICABLE 02/01/20 05:40 Respiration Rate 20 b/min 02/01/20 05:40 O2 Delivery Device VENTILATOR 02/01/20 05:40 O2 Liters/Min 5.50 LPM 01/31/20 12:55 Vent Mode ASSIST/CONTROL 02/01/20 05:40 FiO2 90.00 02/01/20 02:10 Tidal Volume 470 mL 02/01/20 05:40 PEEP 5 cmH2O 02/01/20 05:40 Sodium 140 mmol/L (135-145) 02/01/20 04:40 Potassium 3.7 mmol/L (3.5-5.0) 02/01/20 04:40 Chloride 112 mmol/L (101-111) H 02/01/20 04:40 Carbon Dioxide 19 mmol/L (21-32) L 02/01/20 04:40 Anion Gap 9.0 (6-13) 02/01/20 04:40 BUN 15 mg/dL (6-20) 02/01/20 04:40 Creatinine 0.8 mg/dL (0.4-1.0) 02/01/20 04:40 Estimated GFR (MDRD) 73 (>89) L 02/01/20 04:40 Glucose 119 mg/dL (70-100) H 02/01/20 04:40 POC Whole Bld Glucose 99 mg/dL (70 - 100) 02/01/20 11:59 Lactic Acid < 0.3 mmol/L (0.5-2.2) L 01/31/20 21:35 Calcium 7.7 mg/dL (8.5-10.3) L 02/01/20 04:40 Phosphorus 3.3 mg/dL (2.5-4.6) 02/01/20 04:40 Magnesium 2.0 mg/dL (1.7-2.8) 02/01/20 04:40 Total Bilirubin 0.6 mg/dL (0.2-1.0) 02/01/20 04:40 AST 58 IU/L (10-42) H 02/01/20 04:40 ALT 32 IU/L (10-60) 02/01/20 04:40 Alkaline Phosphatase 69 IU/L (42-121) 02/01/20 04:40 C-Reactive Protein 16.4 mg/dL (0-1.0) H 02/01/20 04:40 B-Natriuretic Peptide 42 pg/mL (5-100) 01/29/20 10:05 Total Protein 4.9 g/dL (6.7-8.2) L 02/01/20 04:40 Albumin 2.0 g/dL (3.2-5.5) L 02/01/20 04:40 Globulin 2.9 g/dL (2.1-4.2) 02/01/20 04:40 Albumin/Globulin Ratio 0.7 (1.0-2.2) L 02/01/20 04:40 Lipase 24 U/L (22-51) 01/29/20 10:05 TSH 3.12 uIU/mL (0.34-5.60) 01/30/20 06:10 Nasal Screen MRSA (PCR) NEGATIVE (NEGATIVE) 01/31/20 16:45 Influenza A (Rapid) Negative (Negative) 01/29/20 10:35 Influenza B (Rapid) Negative (Negative) 01/29/20 10:35
[2020-02-01] MEDS: fentaNYL 100 MCG/2 ML VIAL IVP PRN (18:00)
[2020-02-01] MEDS ORDERED: SODIUM CHLORIDE INHALATION 3 ML NEB ONE (18:03)
[2020-02-01] MEDS: DOPamine 800 MG/500 ML 800 MG/500 ML BAG IV SCH (18:16)
[2020-02-01] MEDS: SODIUM CHLORIDE FLUSH 0.9% 10 ML SYRINGE IVP PRN (21:00)
[2020-02-01] MEDS: CHLORHEXIDINE GLUCONATE 15 ML UDC PO SCH (21:01)
[2020-02-02] MEDS: PIPERACILLIN/TAZOBACTAM 3.375 GM in SODIUM CHLORIDE 0.9% MINIBAG 100 ML IV SCH ×3 (03:25→18:42)
[2020-02-02] MEDS: SODIUM CHLORIDE 0.9% 1,000 ML IV SCH (04:08)
[2020-02-02] MEDS: MIDAZOLAM DRIP 50 MG/100 ML BAG IV SCH (04:37)
[2020-02-02] MEDS: SODIUM CHLORIDE FLUSH 0.9% 10 ML SYRINGE IVP PRN ×3 (04:48→20:04)
[2020-02-02 05:10] LABS: BASOPHILS # (AUTO) 0.1 10^3/uL (0.0-0.1); BASOPHILS % (AUTO) 0.5 %; EOSINOPHILS # (AUTO) 0.4 10^3/uL (0.0-0.7); EOSINOPHILS % (AUTO) 3.2 %; HGB - HEMOGLOBIN 10.1 g/dL (12.0-16.0); LYMPHOCYTES # (AUTO) 2.4 10^3/uL (1.5-3.5); LYMPHOCYTES % (AUTO) 20.4 %; MEAN CORPUSCULAR HEMOGLOBIN 29.2 pg (27.0-31.0); MEAN CORPUSCULAR HGB CONC 31.9 g/dL (32.0-36.0); MEAN CORPUSCULAR VOLUME 91.6 fL (81.0-99.0); MONOCYTES # (AUTO) 0.7 10^3/uL (0.0-1.0); MONOCYTES % (AUTO) 6.1 %; NEUTROPHILS # (AUTO) 7.8 10^3/uL (1.5-6.6); NEUTROPHILS % (AUTO) 67.5 %; PLT - PLATELET COUNT 521 10^3/uL (130-450); RED BLOOD COUNT 3.46 10^6/uL (4.20-5.40); RED CELL DISTRIBUTION WIDTH 14.9 % (12.0-15.0); WHITE BLOOD COUNT 11.6 x10^3/uL (4.8-10.8)
[2020-02-02 05:27] LABS: ALBUMIN 2.1 g/dL (3.2-5.5); ALBUMIN/GLOBULIN RATIO 0.7 (1.0-2.2); BILIRUBIN,TOTAL 0.6 mg/dL (0.2-1.0); CALCIUM 7.7 mg/dL (8.5-10.3); CRP - C-REACTIVE PROTEIN 10.3 mg/dL (0-1.0); PHOSPHORUS 2.5 mg/dL (2.5-4.6); TOTAL PROTEIN 5.2 g/dL (6.7-8.2)
[2020-02-02 05:40] LABS: ABG PH 7.36 (7.35-7.45)
[2020-02-02 05:41] LABS: ABG BASE EXCESS -7.3 mmol/L (-2.0-3.0); ABG HCO3 17.2 mmol/L (22.0-26.0); ABG OXYGEN SATURATION 97 % (94-98); ABG PCO2 31 mmHg (34-45); ABG PO2 104 mmHg (80-100); ABG TCO2 18.1 MMOL/L (21.0-29.0)
[2020-02-02] MEDS: LEVOTHYROXINE 125 MCG TABLET PO SCH (06:17)
[2020-02-02] MEDS: HYDROXYCHLOROQUINE 200 MG TABLET PO SCH ×2 (08:45→20:04)
[2020-02-02] MEDS: SODIUM CHLORIDE FLUSH 0.9% 10 ML SYRINGE IVP SCH ×4 (08:45→18:37)
[2020-02-02] MEDS: CHLORHEXIDINE GLUCONATE 15 ML UDC PO SCH ×2 (09:00→20:04)
[2020-02-02] MEDS: guaiFENesin 600 MG TABLET PO SCH ×2 (09:04→20:04)
[2020-02-02] MEDS: PANTOPRAZOLE 40 MG VIAL IVP SCH ×2 (09:05→20:04)
[2020-02-02] MEDS: ENOXAPARIN 40 MG/0.4 ML SYRINGE SUBQ SCH (09:05)
[2020-02-02] MEDS: AZITHROMYCIN 250 MG TABLET PO SCH (09:06)
[2020-02-02] MEDS: fentaNYL 100 MCG/2 ML VIAL IVP PRN (09:12)
[2020-02-02] MEDS: polyethylene glycoL 3350 17 GM PACKET PO SCH (09:14)
[2020-02-02] MEDS: DEXMEDETOMIDINE 400 MCG/100 ML 100 ML IV SCH (09:27)
--- NOTE | 2020-02-02 09:32 | XRAY Report ---
Reason: F/U COVID pneumonia, on vent Procedure Date: 02/02/2020 Accession Number: [id number] / [id number] Procedure: XR - Chest 1 View X-Ray CPT Code: 93018 Final Report FULL RESULT: EXAM: CHEST RADIOGRAPHY EXAM DATE: 02/02/2020 08:44 AM. CLINICAL HISTORY: Follow-up COVID pneumonia, on ventilator. COMPARISON: CHEST 1 VIEW 02/01/2020 9:00 AM. CHEST 1 VIEW 01/31/2020 1:19 PM. CHEST 1 VIEW 01/29/2020 10:09 AM. TECHNIQUE: 1 view. FINDINGS: Lungs/Pleura: Abnormal focal areas of pulmonary opacity seen in the medial aspect of the right chest and mid superior aspect of the left chest, similar to previous. Moderate to large left pleural effusion, also unchanged. There has been some progression since the 01/29/2020 study. Mediastinum: Within exam limitations, the cardiomediastinal contour is normal. Other: ET tube above jacoby, enteric tube in the stomach. IMPRESSION: 1. Focal bilateral pulmonary opacity as noted, similar to the most recent comparison, showing progression since 01/29/2020. 2. ET tube above jacoby, enteric tube in the stomach. RADIA
--- NOTE | 2020-02-02 10:07 | PROVIDER PROGRESS NOTE ---
Subjective - Prog Note Date Prog Note Date: 01/26/20 Prog Note Time: 10:15 - Subjective Subjective: Still in the ICU, on a ventilator. Were having to change her medications around because of Versed shortages. Overall our balance is between her heart rate, blood pressure, and need for sedation in a patient who is in shock from viral pneumonia and acute respiratory failure. Current Medications - Current Medications Current Medications: Active Medications Azithromycin (Zithromax) 250 mg PO DAILY [facility] Stop: 02/03/20 09:01 Last Admin: 02/02/20 09:06 Dose: 250 mg Chlorhexidine Gluconate (Peridex) 15 ml PO BID [facility] Last Admin: 02/01/20 21:01 Dose: 15 ml Enoxaparin Sodium (Lovenox) 40 mg SUBQ DAILY [facility] Last Admin: 02/02/20 09:05 Dose: 40 mg Fentanyl (Fentanyl) 25 mcg IVP Q2HR PRN PRN Reason: PAIN Last Admin: 02/02/20 09:12 Dose: 25 mcg Guaifenesin (Mucinex) 600 mg PO BID [facility] Last Admin: 02/02/20 09:04 Dose: 600 mg Hydroxychloroquine Sulfate (Plaquenil) 200 mg PO BID [facility] Stop: 02/04/20 09:01 Last Admin: 02/01/20 21:05 Dose: 200 mg Dexmedetomidine/Sodium Chloride (Precedex Premix) 100 mls @ 5.783 mls/hr IV .[id number] [facility]; Protocol Stop: 02/02/20 12:59 Last Admin: 02/02/20 09:27 Dose: 0.8 mcg/kg/hr, 23.133 mls/hr Piperacillin Sod/Tazobactam (Sod 3.375 gm/ Sodium Chloride) 100 mls @ 200 mls/hr IV Q6H [facility] Last Admin: 02/02/20 09:10 Dose: 200 mls/hr Dopamine HCl/Dextrose (Dopamine) 800 mg in 500 mls @ 8.85 mls/hr IV .[id number] [facility]; Protocol Last Titration: 02/01/20 18:30 Dose: 5 mcg/kg/min, 22.125 mls/hr Propofol (Diprivan) 100 mls @ 7.11 mls/hr IV .Q14H4M [facility]; Protocol Last Admin: 02/02/20 10:35 Dose: 10 mcg/kg/min, 7.11 mls/hr Fentanyl 2,500 mcg/ Sodium (Chloride) 250 mls @ 11.85 mls/hr IV .Q21H6M [facility]; Protocol Dexmedetomidine HCl 400 mcg/ (Sodium Chloride) 104 mls @ 24.06 mls/hr IV .Q4H20M [facility]; Protocol Vancomycin HCl 1 gm/Vancomycin HCl 250 mg/ Sodium Chloride 250 mls @ 166.667 mls/hr IV Q12H [facility] Sodium Bicarbonate 100 meq/ (Dextrose) 1,100 mls @ 100 mls/hr IV .Q11H [facility] Ketorolac Tromethamine (Toradol Inj (15mg)) 15 mg IVP Q6HR PRN PRN Reason: PAIN Stop: 02/03/20 17:47 Last Admin: 01/31/20 16:05 Dose: 15 mg Levothyroxine Sodium (Synthroid) 125 mcg PO QDAC [facility] Last Admin: 02/02/20 06:17 Dose: 125 mcg Ondansetron HCl (Zofran Inj) 4 mg IVP Q6HR PRN PRN Reason: Nausea / Vomiting Pantoprazole Sodium (Protonix) 40 mg IVP BID [facility] Last Admin: 02/02/20 09:05 Dose: 40 mg Polyethylene Glycol (Miralax) 17 gm PO DAILY [facility] Last Admin: 02/02/20 09:14 Dose: 17 gm Sodium Chloride (Normal Saline Flush 0.9%) 10 ml IVP PRN PRN PRN Reason: NEEDED PER PROVIDER ORDERS Last Admin: 02/01/20 21:00 Dose: 10 ml Sodium Chloride (Normal Saline Flush 0.9%) 10 ml IVP 0100,0900,1700 [facility] Last Admin: 02/01/20 23:53 Dose: 10 ml Sodium Chloride (Normal Saline Flush 0.9%) 10 ml IVP 0100,0900,1700 [facility] Last Admin: 02/02/20 09:15 Dose: 10 ml Sodium Chloride (Normal Saline Flush 0.9%) 10 ml IVP PRN PRN PRN Reason: NEEDED PER PROVIDER ORDERS Last Admin: 02/02/20 04:48 Dose: 30 ml Zolpidem Tartrate (Ambien) 5 mg PO QPM PRN PRN Reason: Insomnia Last Admin: 03/28/20 20:38 Dose: 5 mg Duloxetine HCl [Cymbalta] 2 tab DAILY 01/29/20 Levothyroxine [Synthroid] 1 tab DAILY 01/29/20 Melatonin 1 tab DAILY 01/29/20 Objective - Vital Signs/Intake & Output Reviewed Vital Signs: Yes Vital Signs: Vital Signs x48h Temp Pulse Pulse Resp BP BP Pulse Ox 02/02/20 09:25 85 24 02/02/20 09:20 84 27 H 02/02/20 09:15 85 27 H 02/02/20 09:10 84 26 H 02/02/20 09:05 86 27 H 02/02/20 09:01 87 28 H 117/59 L 02/02/20 09:00 89 88 28 H 94/69 97 02/02/20 08:55 85 22 02/02/20 08:50 88 27 H 02/02/20 08:45 93 33 H 02/02/20 08:40 81 36 H 02/02/20 08:35 84 26 H 02/02/20 08:31 82 26 H 128/61 02/02/20 08:30 83 26 H 02/02/20 08:25 87 26 H 02/02/20 08:20 87 27 H 02/02/20 08:15 83 26 H 02/02/20 08:10 82 25 H 02/02/20 08:05 81 26 H 02/02/20 08:01 81 25 H 134/68 H 02/02/20 08:00 81 80 26 H 114/75 98 02/02/20 07:55 80 25 H 02/02/20 07:50 80 26 H 02/02/20 07:45 81 25 H 02/02/20 07:40 80 26 H 02/02/20 07:35 81 27 H 02/02/20 07:31 80 25 H 134/67 H 02/02/20 07:30 82 26 H 02/02/20 07:25 80 26 H 02/02/20 07:23 74 02/02/20 07:20 81 27 H 02/02/20 07:15 82 27 H 02/02/20 07:10 82 29 H 02/02/20 07:05 83 28 H 02/02/20 07:01 82 23 127/68 02/02/20 07:00 79 23 127/68 98 02/02/20 06:55 82 25 H 02/02/20 06:50 82 26 H 02/02/20 06:45 80 26 H 02/02/20 06:40 81 25 H 02/02/20 06:35 81 26 H 02/02/20 06:31 78 22 118/68 02/02/20 06:30 83 26 H 02/02/20 06:25 85 26 H 02/02/20 06:20 86 26 H 02/02/20 06:15 85 26 H 02/02/20 06:12 86 26 H 101/59 L 02/02/20 06:11 36.6 C 85 87 27 H 101/59 L 97 02/02/20 06:10 82 24 02/02/20 06:05 86 29 H 02/02/20 06:01 83 18 85/41 L 02/02/20 05:01 80 24 122/63 02/02/20 05:00 36.6 C 80 83 24 97 02/02/20 04:55 79 23 02/02/20 04:50 80 27 H 02/02/20 04:45 78 26 H 02/02/20 04:40 80 24 02/02/20 04:35 78 25 H 02/02/20 04:31 81 27 H 126/71 02/02/20 04:30 78 23 02/02/20 04:25 79 30 H 02/02/20 04:20 81 31 H 02/02/20 04:15 81 28 H 02/02/20 04:10 77 27 H 02/02/20 04:05 77 25 H 02/02/20 04:01 73 29 H 02/02/20 04:00 36.6 C 77 77 27 H 136/76 H 98 02/02/20 03:59 77 27 H 02/02/20 03:55 76 27 H 02/02/20 03:50 85 33 H 02/02/20 03:45 70 24 02/02/20 03:40 80 23 02/02/20 03:35 75 23 02/02/20 03:31 77 23 02/02/20 03:30 75 24 137/75 H 02/02/20 03:29 75 23 02/02/20 03:25 75 23 02/02/20 03:20 74 24 02/02/20 03:15 75 23 02/02/20 03:10 74 25 H 02/02/20 03:05 75 25 H 02/02/20 03:01 76 24 02/02/20 03:00 76 75 24 134/75 H 134/75 H 99 02/02/20 02:59 76 21 02/02/20 02:55 74 24 02/02/20 02:50 73 23 02/02/20 02:45 75 24 02/02/20 02:40 74 25 H 02/02/20 02:35 74 25 H 02/02/20 02:31 74 22 02/02/20 02:30 75 25 H 132/76 H 02/02/20 02:29 75 25 H 02/02/20 02:25 76 25 H 02/02/20 02:20 78 26 H 02/02/20 02:15 77 23 02/02/20 02:10 79 28 H 02/02/20 02:05 74 24 Intake & Output: Intake & Output 01/30/20 01/31/20 02/01/20 02/02/20 23:59 23:59 23:59 23:59 Intake Total 3821.667 4817.639 3843.096 2613 Output Total 925 1335 568 Balance 3821.667 3892.639 2508.096 2045 - Objective General Appearance: positive: Other (intubated and sedated) Neck: positive: No JVD. negative: Stiff neck Respiratory: positive: Chest non-tender, No respiratory distress, Rhonchi Cardiovascular: positive: Regular rate & rhythm. negative: Gallop/S4, Friction rub Abdomen: positive: Non-tender, No organomegaly, Nml bowel sounds, No distention Skin: positive: Warm, Dry Extremities: positive: No pedal edema Neurologic/Psychiatric: positive: Other (intubated and on sedation.) - Lab Results Fish Bones: 02/02/20 04:40 02/02/20 04:40 Other Labs: Lab Results x24hrs 02/02/20 02/02/20 02/02/20 Range/Units 05:30 04:40 04:40 WBC 11.6 H (4.8-10.8) x10^3/uL RBC 3.46 L (4.20-5.40) 10^6/uL Hgb 10.1 L (12.0-16.0) g/dL Hct 31.7 L (37.0-47.0) % MCV 91.6 (81.0-99.0) fL MCH 29.2 (27.0-31.0) pg MCHC 31.9 L (32.0-36.0) g/dL RDW 14.9 (12.0-15.0) % Plt Count 521 H (130-450) 10^3/uL MPV 10.0 (7.9-10.8) fL Neut # (Auto) 7.8 H (1.5-6.6) 10^3/uL Lymph # (Auto) 2.4 (1.5-3.5) 10^3/uL Preston # (Auto) 0.7 (0.0-1.0) 10^3/uL Eos # (Auto) 0.4 (0.0-0.7) 10^3/uL Baso # (Auto) 0.1 (0.0-0.1) 10^3/uL Absolute Nucleated RBC 0.00 x10^3/uL Nucleated RBC % 0.0 /100WBC Bld Gas Analysis Time 0540 Sample Site A-LINE ABG pH 7.36 (7.35-7.45) ABG pCO2 31 L (34-45) mmHg ABG pO2 104 H (80-100) mmHg ABG HCO3 17.2 L (22.0-26.0) mmol/L ABG Total CO2 18.1 L (21.0-29.0) MMOL/L ABG O2 Saturation 97 (94-98) % ABG Base Excess -7.3 L (-2.0-3.0) mmol/L Kelvin Test NOT APPLICABLE Respiration Rate 18 b/min O2 Delivery Device VENTILATOR Vent Mode ASSIST/CONTROL FiO2 0.70 Tidal Volume 70 mL PEEP 5 cmH2O Sodium 143 (135-145) mmol/L Potassium 3.7 (3.5-5.0) mmol/L Chloride 116 H (101-111) mmol/L Carbon Dioxide 19 L (21-32) mmol/L Anion Gap 8.0 (6-13) BUN 14 (6-20) mg/dL Creatinine 1.0 (0.4-1.0) mg/dL Estimated GFR (MDRD) 56 L (>89) Glucose 123 H (70-100) mg/dL POC Whole Bld Glucose (70 - 100) mg/dL Calcium 7.7 L (8.5-10.3) mg/dL Phosphorus 2.5 (2.5-4.6) mg/dL Magnesium 2.0 (1.7-2.8) mg/dL Total Bilirubin 0.6 (0.2-1.0) mg/dL AST 50 H (10-42) IU/L ALT 32 (10-60) IU/L Alkaline Phosphatase 65 (42-121) IU/L C-Reactive Protein 10.3 H (0-1.0) mg/dL Total Protein 5.2 L (6.7-8.2) g/dL Albumin 2.1 L (3.2-5.5) g/dL Globulin 3.1 (2.1-4.2) g/dL Albumin/Globulin Ratio 0.7 L (1.0-2.2) 02/02/20 02/01/20 02/01/20 Range/Units 00:11 18:00 11:59 WBC (4.8-10.8) x10^3/uL RBC (4.20-5.40) 10^6/uL Hgb (12.0-16.0) g/dL Hct (37.0-47.0) % MCV (81.0-99.0) fL MCH (27.0-31.0) pg MCHC (32.0-36.0) g/dL RDW (12.0-15.0) % Plt Count (130-450) 10^3/uL MPV (7.9-10.8) fL Neut # (Auto) (1.5-6.6) 10^3/uL Lymph # (Auto) (1.5-3.5) 10^3/uL Preston # (Auto) (0.0-1.0) 10^3/uL Eos # (Auto) (0.0-0.7) 10^3/uL Baso # (Auto) (0.0-0.1) 10^3/uL Absolute Nucleated RBC x10^3/uL Nucleated RBC % /100WBC Bld Gas Analysis Time Sample Site ABG pH (7.35-7.45) ABG pCO2 (34-45) mmHg ABG pO2 (80-100) mmHg ABG HCO3 (22.0-26.0) mmol/L ABG Total CO2 (21.0-29.0) MMOL/L ABG O2 Saturation (94-98) % ABG Base Excess (-2.0-3.0) mmol/L Kelvin Test Respiration Rate b/min O2 Delivery Device Vent Mode FiO2 Tidal Volume mL PEEP cmH2O Sodium (135-145) mmol/L Potassium (3.5-5.0) mmol/L Chloride (101-111) mmol/L Carbon Dioxide (21-32) mmol/L Anion Gap (6-13) BUN (6-20) mg/dL Creatinine (0.4-1.0) mg/dL Estimated GFR (MDRD) (>89) Glucose (70-100) mg/dL POC Whole Bld Glucose 134 H 94 99 (70 - 100) mg/dL Calcium (8.5-10.3) mg/dL Phosphorus (2.5-4.6) mg/dL Magnesium (1.7-2.8) mg/dL Total Bilirubin (0.2-1.0) mg/dL AST (10-42) IU/L ALT (10-60) IU/L Alkaline Phosphatase (42-121) IU/L C-Reactive Protein (0-1.0) mg/dL Total Protein (6.7-8.2) g/dL Albumin (3.2-5.5) g/dL Globulin (2.1-4.2) g/dL Albumin/Globulin Ratio (1.0-2.2) ABX Reporting Has patient been on IV antibiotics over the past 48 hours?: Yes Assessment/Plan - Problem List (1) Hypotension Impression: Due to precedex and due to shock. On continuous IVF for support and then she has needed Levophed since evening 01/30. Weaned off 01/31 in am but after 2 hours she again became hypotensive and bradycardic in the 40s to 50. Dopamine started yesterday and since then systolic stable. This am 120-130. In spite of low blood pressure, she is still making urine. Put out 1335 yesterday. 568 so far this morning. (2) Bradycardia due to meds. Resolved once off Precedex. Assessment/Plan: avoid betablockers. Will add on troponin to this mornings labs. (3) Pneumonia due to 2019 novel coronavirus Assessment/Plan: This patient is here from [place] helping care for her mother, was staying at her sister's house, and probably caught the virus during the air travel. She also has CLL and is immunocompromised. Patient had a positive COVID test when she did a drive through test at our tent. She tried to work through a cough and fever at home for about a week before presenting. She was admitted to Med Surg. Her chest x-ray has worsened and supplemental oxygen demands have increased. She needed to be transferred to the ICU 01/30 and intubated. Day #2 on vent. Continue Zithromax Day #3 today for the community-acquired pneumonia plus this diagnosis. Continue hydroxychloroquine Day #3. I have spoken to her sister, Shira Montiel at [phone]. I updated her on 2 systems that are in failure. Respiratory and circulatory. Although she is in critical condition, she is maintaining and stable. I did ask about CODE STATUS. She was to be intubated for this illness. But Ms. Montiel asked me to speak to the patient's , Montrell Shannon, who is in [place]. So I spoke to Montrell Shannon at . He states that the intubation was for short- term management of this viral pneumonia with ARDS. His would not want to be kept on life support long-term. As such if she deteriorates with her condition, and she gets worse in spite of our aggressive support with cardiac arrest, he does not want CPR per her wishes. (4) ARDS (adult respiratory distress syndrome) with metabolic acidosis Assessment/Plan: Patient is on the ventilator. Her peak pressures are not excessive. AC rate of 18, TV 470, PEEP 5, FiO2 70%. ABG this am: pH 7.39/PCO2 19/PO2 146/HCO3 11.6/base excess -12.1 She does have a history of asthma/COPD and was on inhalers at home. We will try not to use IV steroids or inline nebs with a COVID pneumonia For sedation we were using Precedex. However keeping her intubated is become a balance of heart rate, blood pressure plus the need for sedation. Precedex has been stopped. It has been known to rarely cause acidosis. Changed over to Versed and she is on max dose of Versed. There is a nationwide shortage, and she is using quite a bit of Versed. Plaquenil has also been known to cause metabolic acidosis, especially for people who are female, 60+ years old, are on Zometa, and have multiple myeloma. She doesn't have myeloma is not on Zometa but does have CLL. PLAN:Changed to propofol plus fentanyl. Need to watch for prolonged QT because she is on hydroxychloroquine and as well. May need to stop it if acidosis doesn't resolve with the change in sedatives. Change IVF to bicarb (5) CAP (community acquired pneumonia) Assessment/Plan: As above] Zosyn Day #2 Hydroxychloroquinine Day #3 Vanocomycin Day #3 azithromycin Day #3 (6) Hypothyroidism Assessment/Plan: She was on p.o. home dose of thyroid replacement. Will change to IV every 5 day replacement (7) Anemia Assessment/Plan: Follow CBC daily 12.5 >10.0 >10.7 >9.7 >10.1 Transfuse if Hgb <7 (8) CLL (chronic lymphocytic leukemia)/immunocompromised status Assessment/Plan: She was getting her "Patient on dose" chemotherapy during the first 2 days of hospitalization here, and was in contact with [place] Oncologist in [place]. (9) Anxiety Assessment/Plan: She was on duloxetine orally. She reported that she will need anxiolytics while being on the ventilator electively. Therefore her Versed doses were being liberally increased but will not go on Propofol and fentanyl since we are running short of Versed. Per nursing the sedation wasn't working. 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 There are certain medications that will be avoided because of this diagnosis. (11) JANICE (acute kidney injury) Assessment/Plan: Resolved with iv hydration Creatinine 1.1 on admission, down to 0.8 January 31 and is 1.0 today. (12) Nutrition Tube feeds ongoing (13) DVT prophylaxis is Lovenox.
[2020-02-02 10:33] LABS: VANCOMYCIN,TROUGH 28.1 ug/mL (10.0-20.0)
[2020-02-02] MEDS: PROPOFOL 1000 MG/100 ML 100 ML IV SCH ×4 (10:35→20:46)
--- NOTE | 2020-02-02 10:59 | PHARMACY PROGRESS NOTE ---
- Therapy Status Therapy status: Trough supratherapeutic Basis for treatment: Empirical Treatment indication: Possible pneumonia in COVID-19 patient Trough goal: 15-20 - JANICE Risk Risk level for Acute Kidney Injury: High Acute Kidney Injury risk factors: Piperacillin/Tozobactam, Wt >100kg or BMI >40, Goal trough >15, Admission to ICU - Monitoring and Recommendation Clinical response to treatment: I&O Previous 24 hours 01/31/20 02/01/20 02/02/20 23:59 23:59 23:59 Intake Total 4817.639 3843.096 2733 Output Total 925 4045 643 Balance 3892.639 2508.096 2090 Lab Results 02/02/20 02/01/20 01/31/20 04:40 04:40 06:05 BUN 14 15 18 Creatinine 1.0 0.8 1.1 H Estimated GFR (MDRD) 56 L 73 L 50 L 01/30/20 01/29/20 06:10 10:05 BUN 22 H 20 Creatinine 1.1 H 1.1 H Estimated GFR (MDRD) 50 L 50 L Vancomycin Monitoring 02/02/20 09:30 Vancomycin Trough 28.1 H* Cultures 01/31/20 21:35 Blood Blood Culture - Preliminary NO GROWTH AFTER 1 DAY 01/31/20 20:40 Blood Blood Culture - Preliminary NO GROWTH AFTER 1 DAY Monitoring plan: Daily serum creatinine Next trough due prior to maintenance dose #: 5 (Dose prior to current trough administered 1.5 hours late. New estimated half-life is 12.5 hours with Vd of 83L. Reducing dose to 1.25 grams q12h.) Next trough due (date/time): 02/04/2020 at 1530 Areas for additional monitoring: IV to PO when appropriate, Therapy de- escalation based on culture results, Acute Kidney Injury Pharmacy recommendation: Continue current regime (Loading dose (2g) given overnight; maintenance dose starting at 1.75 g IV q12h per protocol; per [facility] advanced dosing calc; CrCl; ~ 89. Trough ordered for 02/01- Recommending evaluating trough, renal function, and relevant clinical parameters and dose adjusting accordingly)
[2020-02-02] MEDS: fentaNYL 2,500 MCG in SODIUM CHLORIDE 0.9% 200 ML IV SCH (11:00)
[2020-02-02] MEDS ORDERED: SODIUM CHLORIDE 0.9% 500 ML ONE (11:37)
[2020-02-02] MEDS ORDERED: DEXMEDETOMIDINE 400 MCG in SODIUM CHLORIDE 0.9% 100ML 96 ML IV SCH (13:00)
[2020-02-02] MEDS: DOPamine 800 MG/500 ML 800 MG/500 ML BAG IV SCH (13:18)
[2020-02-02] MEDS: SODIUM BICARBONATE 100 MEQ in DEXTROSE 5% 1,000 ML IV SCH (13:54)
[2020-02-02] MEDS ORDERED: SODIUM CHLORIDE 0.9% 250 ML IV ONE (16:26)
[2020-02-02] MEDS: VANCOMYCIN INJ 1 GM, VANCOMYCIN INJ 250 MG in SODIUM CHLORIDE 0.9% 250 ML IV SCH (17:05)
[2020-02-02] MEDS ORDERED: SODIUM BICARBONATE 8.4% 50 MEQ/50 ML VIAL ONE (21:19)
[2020-02-02] MEDS ORDERED: DEXTROSE 5% 1,000 ML IV ONE (21:22)
[2020-02-03] MEDS: PIPERACILLIN/TAZOBACTAM 3.375 GM in SODIUM CHLORIDE 0.9% MINIBAG 100 ML IV SCH ×5 (00:01→23:51)
[2020-02-03] MEDS: PROPOFOL 1000 MG/100 ML 100 ML IV SCH ×5 (00:23→21:02)
[2020-02-03] MEDS: SODIUM BICARBONATE 100 MEQ in DEXTROSE 5% 1,000 ML IV SCH ×4 (00:54→23:12)
[2020-02-03] MEDS: SODIUM CHLORIDE FLUSH 0.9% 10 ML SYRINGE IVP SCH ×8 (01:58→23:51)
[2020-02-03] MEDS: DOPamine 800 MG/500 ML 800 MG/500 ML BAG IV SCH ×2 (03:04→20:43)
[2020-02-03] MEDS: VANCOMYCIN INJ 1 GM, VANCOMYCIN INJ 250 MG in SODIUM CHLORIDE 0.9% 250 ML IV SCH ×3 (03:25→16:28)
[2020-02-03 05:22] LABS: BASOPHILS # (AUTO) 0.1 10^3/uL (0.0-0.1); BASOPHILS % (AUTO) 0.4 %; EOSINOPHILS # (AUTO) 0.6 10^3/uL (0.0-0.7); EOSINOPHILS % (AUTO) 4.1 %; HGB - HEMOGLOBIN 9.4 g/dL (12.0-16.0); LYMPHOCYTES # (AUTO) 3.1 10^3/uL (1.5-3.5); LYMPHOCYTES % (AUTO) 22.9 %; MEAN CORPUSCULAR HEMOGLOBIN 28.9 pg (27.0-31.0); MEAN CORPUSCULAR VOLUME 93.2 fL (81.0-99.0); MONOCYTES # (AUTO) 1.1 10^3/uL (0.0-1.0); MONOCYTES % (AUTO) 8.3 %; NEUTROPHILS # (AUTO) 8.2 10^3/uL (1.5-6.6); NEUTROPHILS % (AUTO) 61.2 %; PLT - PLATELET COUNT 585 10^3/uL (130-450); RED BLOOD COUNT 3.25 10^6/uL (4.20-5.40); RED CELL DISTRIBUTION WIDTH 15.1 % (12.0-15.0); WHITE BLOOD COUNT 13.4 x10^3/uL (4.8-10.8)
[2020-02-03 05:37] LABS: ALBUMIN/GLOBULIN RATIO 0.6 (1.0-2.2); BILIRUBIN,TOTAL 0.6 mg/dL (0.2-1.0); CALCIUM 7.6 mg/dL (8.5-10.3); CREATININE 1.2 mg/dL (0.4-1.0); CRP - C-REACTIVE PROTEIN 9.7 mg/dL (0-1.0); TOTAL PROTEIN 5.3 g/dL (6.7-8.2)
[2020-02-03] MEDS: LEVOTHYROXINE 125 MCG TABLET PO SCH (06:01)
[2020-02-03 06:15] LABS: ABG BASE EXCESS -3.4 mmol/L (-2.0-3.0); ABG HCO3 22.3 mmol/L (22.0-26.0); ABG OXYGEN SATURATION 90 % (94-98); ABG PCO2 43 mmHg (34-45); ABG PH 7.34 (7.35-7.45); ABG PO2 59 mmHg (80-100); ABG TCO2 23.6 MMOL/L (21.0-29.0); ALLEN TEST POSITIVE
[2020-02-03] MEDS ORDERED: POTASSIUM CHLORIDE 20 MEQ/15 ML UDC PO ONE (06:30)
[2020-02-03] MEDS ORDERED: FUROSEMIDE 20 MG/2 ML VIAL IVP SCH (08:15)
--- NOTE | 2020-02-03 08:15 | PROVIDER PROGRESS NOTE ---
Subjective - Prog Note Date Prog Note Date: 02/03/20 Prog Note Time: 11:36 - Subjective Subjective: Started having a temp last night around midnight. She was 100.3, then 101.6, this morning she is 99.6. She is still on dopamine, Plaquenil, azithromycin, Zosyn, vancomycin. Yesterday's chest x-ray showed progression of disease with her multifocal infiltrates. She has a large left pleural effusion. FiO2 was at 70% yesterday. Down to 60% today. January 30 +3892, January 31 +2508, yesterday +5349. This morning she is still positive at 1489. Creatinine is come up to 1.2 today. She was 1.0 yesterday. Current Medications - Current Medications Current Medications: Active Medications Azithromycin (Zithromax) 250 mg PO DAILY [facility] Stop: 02/03/20 09:01 Last Admin: 02/02/20 09:06 Dose: 250 mg Chlorhexidine Gluconate (Peridex) 15 ml PO BID [facility] Last Admin: 02/02/20 20:04 Dose: 15 ml Enoxaparin Sodium (Lovenox) 40 mg SUBQ DAILY [facility] Last Admin: 02/02/20 09:05 Dose: 40 mg Fentanyl (Fentanyl) 25 mcg IVP Q2HR PRN PRN Reason: PAIN Last Admin: 02/02/20 09:12 Dose: 25 mcg Guaifenesin (Mucinex) 600 mg PO BID [facility] Last Admin: 02/02/20 20:04 Dose: 600 mg Hydroxychloroquine Sulfate (Plaquenil) 200 mg PO BID [facility] Stop: 02/04/20 09:01 Last Admin: 02/02/20 20:04 Dose: 200 mg Piperacillin Sod/Tazobactam (Sod 3.375 gm/ Sodium Chloride) 100 mls @ 200 mls/hr IV Q6H [facility] Last Infusion: 02/03/20 06:13 Dose: Infused Dopamine HCl/Dextrose (Dopamine) 800 mg in 500 mls @ 8.85 mls/hr IV .[id number] [facility]; Protocol Last Titration: 02/03/20 03:14 Dose: 8 mcg/kg/min, 35.4 mls/hr Propofol (Diprivan) 100 mls @ 7.11 mls/hr IV .Q14H4M [facility]; Protocol Last Admin: 02/03/20 06:01 Dose: 25 mcg/kg/min, 17.775 mls/hr Fentanyl 2,500 mcg/ Sodium (Chloride) 250 mls @ 11.85 mls/hr IV .Q21H6M [facility]; Protocol Last Titration: 02/02/20 17:48 Dose: 1 mcg/kg/hr, 11.85 mls/hr Vancomycin HCl 1 gm/Vancomycin HCl 250 mg/ Sodium Chloride 250 mls @ 166.667 mls/hr IV Q12H [facility] Last Infusion: 02/03/20 05:32 Dose: Infused Sodium Bicarbonate 100 meq/ (Dextrose) 1,100 mls @ 100 mls/hr IV .Q11H [facility] Last Admin: 02/03/20 00:54 Dose: 100 mls/hr Ketorolac Tromethamine (Toradol Inj (15mg)) 15 mg IVP Q6HR PRN PRN Reason: PAIN Stop: 02/03/20 17:47 Last Admin: 01/31/20 16:05 Dose: 15 mg Levothyroxine Sodium (Synthroid) 125 mcg PO QDAC [facility] Last Admin: 02/03/20 06:01 Dose: 125 mcg Ondansetron HCl (Zofran Inj) 4 mg IVP Q6HR PRN PRN Reason: Nausea / Vomiting Pantoprazole Sodium (Protonix) 40 mg IVP BID [facility] Last Admin: 02/02/20 20:04 Dose: 40 mg Polyethylene Glycol (Miralax) 17 gm PO DAILY [facility] Last Admin: 02/02/20 09:14 Dose: 17 gm Sodium Chloride (Normal Saline Flush 0.9%) 10 ml IVP PRN PRN PRN Reason: NEEDED PER PROVIDER ORDERS Last Admin: 02/01/20 21:00 Dose: 10 ml Sodium Chloride (Normal Saline Flush 0.9%) 10 ml IVP 0100,0900,1700 [facility] Last Admin: 02/03/20 01:58 Dose: Not Given Sodium Chloride (Normal Saline Flush 0.9%) 10 ml IVP 0100,0900,1700 [facility] Last Admin: 02/03/20 01:58 Dose: Not Given Sodium Chloride (Normal Saline Flush 0.9%) 10 ml IVP PRN PRN PRN Reason: NEEDED PER PROVIDER ORDERS Last Admin: 02/02/20 20:04 Dose: 10 ml Zolpidem Tartrate (Ambien) 5 mg PO QPM PRN PRN Reason: Insomnia Last Admin: 01/30/20 20:38 Dose: 5 mg Duloxetine HCl [Cymbalta] 2 tab DAILY 01/29/20 Levothyroxine [Synthroid] 1 tab DAILY 01/29/20 Melatonin 1 tab DAILY 01/29/20 Objective - Vital Signs/Intake & Output Reviewed Vital Signs: Yes Vital Signs: Vital Signs Temp Pulse Pulse Resp BP Pulse Ox 02/03/20 07:06 100 02/03/20 06:48 105 H 20 123/70 92 02/03/20 06:00 101 H 18 128/65 96 02/03/20 05:35 98 02/03/20 05:00 99.6 C H 97 20 124/64 93 Intake & Output: Intake & Output 01/31/20 02/01/20 02/02/20 02/03/20 23:59 23:59 23:59 23:59 Intake Total 4817.639 3843.096 6717.804 1775.760 Output Total 925 1335 1368 276 Balance 3892.639 2508.096 5349.804 1499.760 - Objective General Appearance: positive: Other (intubated and sedated but startle response with exam of abd and stacks vent breaths bc of it) Eyes Bilateral: positive: PERRL ENT: positive: Pharynx nml Neck: positive: No JVD. negative: Stiff neck Respiratory: positive: Chest non-tender, No respiratory distress, Rhonchi (that are occ and squeaking right anterior lung). negative: Wheezes, Rales Cardiovascular: positive: Regular rate & rhythm. negative: Gallop/S4, Friction rub Abdomen: positive: Non-tender, No organomegaly, Nml bowel sounds, No distention Skin: positive: Warm, Dry Extremities: positive: No pedal edema Neurologic/Psychiatric: positive: Other (intubated and sedated.) - Lab Results Fish Bones: 02/03/20 04:30 02/03/20 04:30 Other Labs: Lab Results x24hrs 02/03/20 02/03/20 02/03/20 Range/Units 06:00 04:30 04:30 WBC 13.4 H (4.8-10.8) x10^3/uL RBC 3.25 L (4.20-5.40) 10^6/uL Hgb 9.4 L (12.0-16.0) g/dL Hct 30.3 L (37.0-47.0) % MCV 93.2 (81.0-99.0) fL MCH 28.9 (27.0-31.0) pg MCHC 31.0 L (32.0-36.0) g/dL RDW 15.1 H (12.0-15.0) % Plt Count 585 H (130-450) 10^3/uL MPV 10.0 (7.9-10.8) fL Neut # (Auto) 8.2 H (1.5-6.6) 10^3/uL Lymph # (Auto) 3.1 (1.5-3.5) 10^3/uL [place] # (Auto) 1.1 H (0.0-1.0) 10^3/uL Eos # (Auto) 0.6 (0.0-0.7) 10^3/uL Baso # (Auto) 0.1 (0.0-0.1) 10^3/uL Absolute Nucleated RBC 0.00 x10^3/uL Nucleated RBC % 0.0 /100WBC Bld Gas Analysis Time 0613 Sample Site LEFT RADIAL ABG pH 7.34 L (7.35-7.45) ABG pCO2 43 (34-45) mmHg ABG pO2 59 L (80-100) mmHg ABG HCO3 22.3 (22.0-26.0) mmol/L ABG Total CO2 23.6 (21.0-29.0) MMOL/L ABG O2 Saturation 90 L (94-98) % ABG Base Excess -3.4 L (-2.0-3.0) mmol/L Kelvin Test POSITIVE Respiration Rate 18 b/min O2 Delivery Device VENTILATOR Vent Mode ASSIST/CONTROL FiO2 0.60 Tidal Volume 470 mL PEEP 5 cmH2O Sodium 138 (135-145) mmol/L Potassium 3.4 L (3.5-5.0) mmol/L Chloride 111 (101-111) mmol/L Carbon Dioxide 22 (21-32) mmol/L Anion Gap 5.0 L (6-13) BUN 15 (6-20) mg/dL Creatinine 1.2 H (0.4-1.0) mg/dL Estimated GFR (MDRD) 46 L (>89) Glucose 131 H (70-100) mg/dL POC Whole Bld Glucose (70 - 100) mg/dL Calcium 7.6 L (8.5-10.3) mg/dL Phosphorus 3.0 (2.5-4.6) mg/dL Magnesium 2.0 (1.7-2.8) mg/dL Total Bilirubin 0.6 (0.2-1.0) mg/dL AST 50 H (10-42) IU/L ALT 31 (10-60) IU/L Alkaline Phosphatase 69 (42-121) IU/L Troponin I High Sens (2.3-14.8) ng/L C-Reactive Protein 9.7 H (0-1.0) mg/dL Total Protein 5.3 L (6.7-8.2) g/dL Albumin 2.0 L (3.2-5.5) g/dL Globulin 3.3 (2.1-4.2) g/dL Albumin/Globulin Ratio 0.6 L (1.0-2.2) Last Dose Date Last Dose Time Vancomycin Trough (10.0-20.0) ug/mL 02/03/20 02/02/20 02/02/20 Range/Units 00:32 17:16 12:06 WBC (4.8-10.8) x10^3/uL RBC (4.20-5.40) 10^6/uL Hgb (12.0-16.0) g/dL Hct (37.0-47.0) % MCV (81.0-99.0) fL MCH (27.0-31.0) pg MCHC (32.0-36.0) g/dL RDW (12.0-15.0) % Plt Count (130-450) 10^3/uL MPV (7.9-10.8) fL Neut # (Auto) (1.5-6.6) 10^3/uL Lymph # (Auto) (1.5-3.5) 10^3/uL [place] # (Auto) (0.0-1.0) 10^3/uL Eos # (Auto) (0.0-0.7) 10^3/uL Baso # (Auto) (0.0-0.1) 10^3/uL Absolute Nucleated RBC x10^3/uL Nucleated RBC % /100WBC Bld Gas Analysis Time Sample Site ABG pH (7.35-7.45) ABG pCO2 (34-45) mmHg ABG pO2 (80-100) mmHg ABG HCO3 (22.0-26.0) mmol/L ABG Total CO2 (21.0-29.0) MMOL/L ABG O2 Saturation (94-98) % ABG Base Excess (-2.0-3.0) mmol/L Kelvin Test Respiration Rate b/min O2 Delivery Device Vent Mode FiO2 Tidal Volume mL PEEP cmH2O Sodium (135-145) mmol/L Potassium (3.5-5.0) mmol/L Chloride (101-111) mmol/L Carbon Dioxide (21-32) mmol/L Anion Gap (6-13) BUN (6-20) mg/dL Creatinine (0.4-1.0) mg/dL Estimated GFR (MDRD) (>89) Glucose (70-100) mg/dL POC Whole Bld Glucose 126 H 118 H 104 H (70 - 100) mg/dL Calcium (8.5-10.3) mg/dL Phosphorus (2.5-4.6) mg/dL Magnesium (1.7-2.8) mg/dL Total Bilirubin (0.2-1.0) mg/dL AST (10-42) IU/L ALT (10-60) IU/L Alkaline Phosphatase (42-121) IU/L Troponin I High Sens (2.3-14.8) ng/L C-Reactive Protein (0-1.0) mg/dL Total Protein (6.7-8.2) g/dL Albumin (3.2-5.5) g/dL Globulin (2.1-4.2) g/dL Albumin/Globulin Ratio (1.0-2.2) Last Dose Date Last Dose Time Vancomycin Trough (10.0-20.0) ug/mL 02/02/20 02/02/20 Range/Units 09:30 09:30 WBC (4.8-10.8) x10^3/uL RBC (4.20-5.40) 10^6/uL Hgb (12.0-16.0) g/dL Hct (37.0-47.0) % MCV (81.0-99.0) fL MCH (27.0-31.0) pg MCHC (32.0-36.0) g/dL RDW (12.0-15.0) % Plt Count (130-450) 10^3/uL MPV (7.9-10.8) fL Neut # (Auto) (1.5-6.6) 10^3/uL Lymph # (Auto) (1.5-3.5) 10^3/uL [place] # (Auto) (0.0-1.0) 10^3/uL Eos # (Auto) (0.0-0.7) 10^3/uL Baso # (Auto) (0.0-0.1) 10^3/uL Absolute Nucleated RBC x10^3/uL Nucleated RBC % /100WBC Bld Gas Analysis Time Sample Site ABG pH (7.35-7.45) ABG pCO2 (34-45) mmHg ABG pO2 (80-100) mmHg ABG HCO3 (22.0-26.0) mmol/L ABG Total CO2 (21.0-29.0) MMOL/L ABG O2 Saturation (94-98) % ABG Base Excess (-2.0-3.0) mmol/L Kelvin Test Respiration Rate b/min O2 Delivery Device Vent Mode FiO2 Tidal Volume mL PEEP cmH2O Sodium (135-145) mmol/L Potassium (3.5-5.0) mmol/L Chloride (101-111) mmol/L Carbon Dioxide (21-32) mmol/L Anion Gap (6-13) BUN (6-20) mg/dL Creatinine (0.4-1.0) mg/dL Estimated GFR (MDRD) (>89) Glucose (70-100) mg/dL POC Whole Bld Glucose (70 - 100) mg/dL Calcium (8.5-10.3) mg/dL Phosphorus (2.5-4.6) mg/dL Magnesium (1.7-2.8) mg/dL Total Bilirubin (0.2-1.0) mg/dL AST (10-42) IU/L ALT (10-60) IU/L Alkaline Phosphatase (42-121) IU/L Troponin I High Sens 15.8 H* (2.3-14.8) ng/L C-Reactive Protein (0-1.0) mg/dL Total Protein (6.7-8.2) g/dL Albumin (3.2-5.5) g/dL Globulin (2.1-4.2) g/dL Albumin/Globulin Ratio (1.0-2.2) Last Dose Date 02/02/20 Last Dose Time 02:20 Vancomycin Trough 28.1 H* (10.0-20.0) ug/mL Assessment/Plan - Problem List (1) Hypotension Impression: Due to precedex and due to shock. On continuous IVF for support and then she has needed Levophed since evening 01/30. Weaned off 01/31 in am but after 2 hours she again became hypotensive and bradycardic in the 40s to 50. Dopamine started 01/31 instead of levophed and since then systolic stable. She has been in the systolic 120s range for 48 hours and still on it. Urine output adequate but getting large numbers (+) for I/O. Will give lasix this am. (2) Bradycardia due to meds. Resolved once off Precedex. Assessment/Plan: avoid betablockers. Troponin was 15.4 02/01. (3) Pneumonia due to 2019 novel coronavirus Assessment/Plan: This patient is here from [place] helping care for her mother, was staying at her sister's house, and probably caught the virus during the air travel. She also has CLL and is immunocompromised. Patient had a positive COVID test when she did a drive through test at our tent. She tried to work through a cough and fever at home for about a week before presenting. She was admitted to Med Surg. Her chest x-ray has worsened and supplemental oxygen demands have increased. She needed to be transferred to the ICU 01/30 and intubated. Day #4 on vent. Stopped Zithromax after 4 doses completed today per pharmacy for the community- acquired pneumonia plus this diagnosis. Continue hydroxychloroquine Day #5 and is to stop tomorrow morning after 6 total doses. 02/01 I spoke to her sister, Shira Montiel at [phone]. I updated her on 2 systems that are in failure. Respiratory and circulatory. Although she is in critical condition, she is maintaining and stable. I did ask about CODE STATUS. She was to be intubated for this illness. But Ms. Montiel asked me to speak to the patient's , Montrell Shannon, who is in [place]. So I spoke to Montrell Shannon at . He states that the intubation was for short- term management of this viral pneumonia with ARDS. His would not want to be kept on life support long-term. As such if she deteriorates with her condition, and she gets worse in spite of our aggressive support with cardiac arrest, he does not want CPR per her wishes. 02/02 she was contacted. She is in line with her to get screened for virus. In tears. Patient's condition discussed.No change in pulmonary or circulatory system. CPR wishes discussed. She would like nursing to put phone to sister's ear around 1 pm so family can speak at patient. (4) ARDS (adult respiratory distress syndrome) with metabolic acidosis Assessment/Plan: Patient is on the ventilator. Day #4 AC rate of 18, TV 470, PEEP 5, FiO2 edith to 60% from 70% and O2 sat holding. PIP on the [id number] are up to 40s bc she is triggering the vent with stacked breaths and agitation. ABG with pH 7.34/PCO2 43/PO2 59/HCO3 22.3/base excess -3.4 I added bicarb in D5 on 02/01 for her negative base excess of -6 to -12. This am BE is better. She does have a history of asthma/COPD and was on inhalers at home. We will try not to use IV steroids or inline nebs with a COVID pneumonia For sedation we were using Precedex. However keeping her intubated is become a balance of heart rate, blood pressure plus the need for sedation. Precedex has been stopped. It has been known to rarely cause acidosis. Changed over to Versed and she is on max dose of Versed. There is a nationwide shortage, and she is using quite a bit of Versed. Plaquenil has also been known to cause metabolic acidosis, especially for people who are female, 60+ years old, are on Zometa, and have multiple myeloma. She doesn't have myeloma is not on Zometa but does have CLL. PLAN: 02/01 Changed to propofol plus fentanyl and that will be continued. Does have prolonged QT because she is on hydroxychloroquine and propofol. ~500. Plaquenil stopped. No ectopy on tele. Continue ventilatory support for now. I have asked sister to consider trach once we reach that point. (5) CAP (community acquired pneumonia) Assessment/Plan: As above Blood cultures negative White cell count is rising. 8.9 >11.6> 13.4 Zosyn Day #3, started late pm 01/30 Completed 6 doses of Hydroxychloroquinine 01/29-02/02 Vanocomycin done 01/29 then adjusted 01/30 and again 02/02 for supratheraputic trough, Day #6 s/p azithromycin 4 Days completed 02/02 (6) Hypothyroidism Assessment/Plan: She was on p.o. home dose of thyroid replacement. Will change to IV every 5 day replacement (7) Anemia Assessment/Plan: Follow CBC daily 12.5 >10.0 >10.7 >9.7 >10.1>9.4 Transfuse if Hgb <7 (8) CLL (chronic lymphocytic leukemia)/immunocompromised status Assessment/Plan: She was getting her "Patient on dose" chemotherapy during the first 2 days of hospitalization here, and was in contact with her Oncologist in [place]. (9) Anxiety Assessment/Plan: She was on duloxetine orally. She reported that she will need anxiolytics while being on the ventilator electively. Therefore her Versed doses were being liberally increased but will not go on Propofol and fentanyl since we are running short of Versed. Per nursing the sedation wasn't working. 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 There are certain medications that will be avoided because of this diagnosis. (11) JANICE (acute kidney injury) Assessment/Plan: Resolved with iv hydration Creatinine 1.1 on admission, down to 0.8 January 31>1.0>1.2 today. Vanc has been adjusted, with known toxicity interaction b/n zosyn and vanc. (12) Moderate protein calorie malnutrition Tube feeds ongoing (13) DVT prophylaxis is Lovenox.
[2020-02-03] MEDS: HYDROXYCHLOROQUINE 200 MG TABLET PO SCH ×2 (08:16→20:28)
[2020-02-03] MEDS: AZITHROMYCIN 250 MG TABLET PO SCH (08:16)
[2020-02-03] MEDS: guaiFENesin 600 MG TABLET PO SCH ×2 (08:16→20:28)
[2020-02-03] MEDS: ENOXAPARIN 40 MG/0.4 ML SYRINGE SUBQ SCH (08:17)
[2020-02-03] MEDS: polyethylene glycoL 3350 17 GM PACKET PO SCH (08:17)
[2020-02-03] MEDS: CHLORHEXIDINE GLUCONATE 15 ML UDC PO SCH ×2 (08:17→20:27)
[2020-02-03] MEDS: PANTOPRAZOLE 40 MG VIAL IVP SCH ×2 (09:12→20:28)
[2020-02-03] MEDS: fentaNYL 2,500 MCG in SODIUM CHLORIDE 0.9% 200 ML IV SCH (09:30)
--- NOTE | 2020-02-03 16:35 | MISCELLANEOUS PROVIDER NOTE ---
Miscellaneous Provider Note - - Note: SURGERY Asked to see patient for possible thoracentesis for left pleural effusion. Moderate on last CXR which was yesterday. Consent obtained on phone call with her and sister. US did not show a window for safe drainage and no large volume of fluid was noted. Given this, we did not proceed and will be available to assess again if effusion worsening. ANA M Vizcarra MD
--- NOTE | 2020-02-03 19:01 | Ultrasound Report ---
Reason: left pleural effusion Procedure Date: 02/03/2020 Accession Number: [id number] / [id number] Procedure: US - Chest CPT Code: Final Report FULL RESULT: EXAM: LIMITED CHEST ULTRASOUND. EXAM DATE: 02/03/2020 04:40 PM. CLINICAL HISTORY: Left pleural effusion. COMPARISON: CHEST 1 VIEW 02/02/2020 8:44 AM. TECHNIQUE: Grayscale imaging was used to interrogate the left lung base in the region of the costophrenic sulcus. Several static images were stored by the pre planning advisor for documentation. FINDINGS: A small simple appearing left pleural effusion is identified. No septations are seen. Otherwise unremarkable exam. IMPRESSION: Small left pleural effusion. RADIA
[2020-02-03] MEDS: SODIUM CHLORIDE FLUSH 0.9% 10 ML SYRINGE IVP PRN ×2 (20:28→23:37)
[2020-02-04] MEDS: PROPOFOL 1000 MG/100 ML 100 ML IV SCH ×6 (00:11→19:05)
[2020-02-04] MEDS: SODIUM CHLORIDE FLUSH 0.9% 10 ML SYRINGE IVP PRN ×3 (03:35→20:25)
[2020-02-04] MEDS: VANCOMYCIN INJ 1 GM, VANCOMYCIN INJ 250 MG in SODIUM CHLORIDE 0.9% 250 ML IV SCH (03:49)
[2020-02-04 04:00] LABS: BASOPHILS % (AUTO) 0.4 %; EOSINOPHILS # (AUTO) 0.5 10^3/uL (0.0-0.7); EOSINOPHILS % (AUTO) 4.3 %; HGB - HEMOGLOBIN 8.5 g/dL (12.0-16.0); LYMPHOCYTES # (AUTO) 2.5 10^3/uL (1.5-3.5); MEAN CORPUSCULAR HEMOGLOBIN 27.9 pg (27.0-31.0); MEAN CORPUSCULAR HGB CONC 30.1 g/dL (32.0-36.0); MEAN CORPUSCULAR VOLUME 92.5 fL (81.0-99.0); MEAN PLATELET VOLUME 9.6 fL (7.9-10.8); MONOCYTES # (AUTO) 0.9 10^3/uL (0.0-1.0); MONOCYTES % (AUTO) 8.3 %; NEUTROPHILS # (AUTO) 7.1 10^3/uL (1.5-6.6); NEUTROPHILS % (AUTO) 62.7 %; PLT - PLATELET COUNT 486 10^3/uL (130-450); RED BLOOD COUNT 3.05 10^6/uL (4.20-5.40); RED CELL DISTRIBUTION WIDTH 15.4 % (12.0-15.0); WHITE BLOOD COUNT 11.3 x10^3/uL (4.8-10.8)
[2020-02-04 04:10] LABS: CALCIUM 7.2 mg/dL (8.5-10.3); CREATININE 1.3 mg/dL (0.4-1.0); PHOSPHORUS 3.7 mg/dL (2.5-4.6)
[2020-02-04 04:22] LABS: VBG PH 7.351 (7.31-7.41)
[2020-02-04] MEDS: PIPERACILLIN/TAZOBACTAM 3.375 GM in SODIUM CHLORIDE 0.9% MINIBAG 100 ML IV SCH ×4 (05:27→23:37)
[2020-02-04] MEDS: LEVOTHYROXINE 125 MCG TABLET PO SCH (05:28)
[2020-02-04 05:33] LABS: ABG BASE EXCESS 0.7 mmol/L (-2.0-3.0); ABG HCO3 25.1 mmol/L (22.0-26.0); ABG PCO2 39 mmHg (34-45); ABG PH 7.42 (7.35-7.45); ABG PO2 67 mmHg (80-100); ABG TCO2 26.4 MMOL/L (21.0-29.0)
[2020-02-04 05:34] LABS: ABG OXYGEN SATURATION 93 % (94-98); ALLEN TEST POSITIVE
[2020-02-04] MEDS: fentaNYL 2,500 MCG in SODIUM CHLORIDE 0.9% 200 ML IV SCH ×2 (08:00→19:00)
[2020-02-04] MEDS: ENOXAPARIN 40 MG/0.4 ML SYRINGE SUBQ SCH (08:42)
[2020-02-04] MEDS: guaiFENesin 600 MG TABLET PO SCH ×2 (08:42→20:25)
[2020-02-04] MEDS: HYDROXYCHLOROQUINE 200 MG TABLET PO SCH (08:42)
[2020-02-04] MEDS: PANTOPRAZOLE 40 MG VIAL IVP SCH ×2 (08:43→20:24)
[2020-02-04] MEDS: polyethylene glycoL 3350 17 GM PACKET PO SCH (09:19)
[2020-02-04] MEDS: CHLORHEXIDINE GLUCONATE 15 ML UDC PO SCH ×2 (09:20→20:25)
--- NOTE | 2020-02-04 10:18 | PROVIDER PROGRESS NOTE ---
Subjective - Prog Note Date Prog Note Date: 02/04/20 Prog Note Time: 10:18 - Subjective Subjective: T-max at 3 in the morning was 101.6 yesterday. Today she has been 37.5. Still on 3-4 mics of dopamine. Needed to go up on her FiO2 this morning because of hypoxemia on blood gas. PO2 was 67 on 45%. She has improved overall with oxygen requirement. On January 31 she was a 90%, February 01 70%, February 02 60 %. Thoracentesis could not be done yesterday. Although on chest x-ray it looks like a moderate to large pleural effusion, under ultrasound there is not enough for us to really take the risk of thoracentesis. Given Lasix for 7 L intake yesterday and she did have a 2500 cc urine output. But she still positive to 4540 yesterday. This morning so far she is +2530. A lot of it is IV intake. Current Medications - Current Medications Current Medications: Active Medications Chlorhexidine Gluconate (Peridex) 15 ml PO BID [facility] Last Admin: 02/04/20 09:20 Dose: 15 ml Enoxaparin Sodium (Lovenox) 40 mg SUBQ DAILY [facility] Last Admin: 02/04/20 08:42 Dose: 40 mg Fentanyl (Fentanyl) 25 mcg IVP Q2HR PRN PRN Reason: PAIN Last Admin: 02/02/20 09:12 Dose: 25 mcg Guaifenesin (Mucinex) 600 mg PO BID [facility] Last Admin: 02/04/20 08:42 Dose: 600 mg Piperacillin Sod/Tazobactam (Sod 3.375 gm/ Sodium Chloride) 100 mls @ 200 mls/hr IV Q6H [facility] Last Infusion: 02/04/20 06:00 Dose: Infused Dopamine HCl/Dextrose (Dopamine) 800 mg in 500 mls @ 8.85 mls/hr IV .[id number] [facility]; Protocol Last Titration: 02/04/20 09:59 Dose: 4 mcg/kg/min, 17.7 mls/hr Propofol (Diprivan) 100 mls @ 7.11 mls/hr IV .Q14H4M [facility]; Protocol Last Admin: 02/04/20 08:59 Dose: 40 mcg/kg/min, 28.44 mls/hr Fentanyl 2,500 mcg/ Sodium (Chloride) 250 mls @ 11.85 mls/hr IV .Q21H6M [facility]; Protocol Last Titration: 02/04/20 09:19 Dose: 2 mcg/kg/hr, 23.7 mls/hr Vancomycin HCl 1 gm/Vancomycin HCl 250 mg/ Sodium Chloride 250 mls @ 166.667 mls/hr IV Q12H [facility] Last Infusion: 02/04/20 05:22 Dose: Infused Sodium Bicarbonate 100 meq/ (Dextrose) 1,100 mls @ 100 mls/hr IV .Q11H [facility] Last Infusion: 02/04/20 09:00 Dose: 100 mls/hr Levothyroxine Sodium (Synthroid) 125 mcg PO QDAC [facility] Last Admin: 02/04/20 05:28 Dose: 125 mcg Ondansetron HCl (Zofran Inj) 4 mg IVP Q6HR PRN PRN Reason: Nausea / Vomiting Pantoprazole Sodium (Protonix) 40 mg IVP BID [facility] Last Admin: 02/04/20 08:43 Dose: 40 mg Polyethylene Glycol (Miralax) 17 gm PO DAILY [facility] Last Admin: 02/04/20 09:19 Dose: 17 gm Sodium Chloride (Normal Saline Flush 0.9%) 10 ml IVP PRN PRN PRN Reason: NEEDED PER PROVIDER ORDERS Last Admin: 02/04/20 03:35 Dose: 10 ml Sodium Chloride (Normal Saline Flush 0.9%) 10 ml IVP 0100,0900,1700 [facility] Last Admin: 02/03/20 20:28 Dose: 10 ml Sodium Chloride (Normal Saline Flush 0.9%) 10 ml IVP 0100,0900,1700 [facility] Last Admin: 02/03/20 23:51 Dose: Not Given Sodium Chloride (Normal Saline Flush 0.9%) 10 ml IVP PRN PRN PRN Reason: NEEDED PER PROVIDER ORDERS Last Admin: 02/04/20 03:36 Dose: 10 ml Zolpidem Tartrate (Ambien) 5 mg PO QPM PRN PRN Reason: Insomnia Last Admin: 01/30/20 20:38 Dose: 5 mg Duloxetine HCl [Cymbalta] 2 tab DAILY 01/29/20 Levothyroxine [Synthroid] 1 tab DAILY 01/29/20 Melatonin 1 tab DAILY 01/29/20 Objective - Vital Signs/Intake & Output Reviewed Vital Signs: Yes Vital Signs: Vital Signs Temp Pulse Pulse Resp BP Pulse Ox 02/04/20 10:00 104 H 15 88/38 L 93 02/04/20 09:53 105 H 13 111/40 L 94 02/04/20 09:52 103 H 02/04/20 09:44 112 H 17 130/62 95 02/04/20 09:00 122 H 24 138/68 H 96 02/04/20 08:00 99.3 C H 103 H 17 97/59 L 95 02/04/20 07:41 100 02/04/20 07:00 95 18 105/55 L 99 Intake & Output: Intake & Output 02/01/20 02/02/20 02/03/20 02/04/20 23:59 23:59 23:59 23:59 Intake Total 3843.096 6717.804 7081.455 3070.278 Output Total 1335 1368 2541 540 Balance 2508.096 5349.804 4540.455 2530.278 - Objective General Appearance: positive: Other (intubated and sedated) Eyes Bilateral: positive: PERRL (reactive but slow.), Other (starting to get scleral edema) Neck: positive: No JVD Respiratory: positive: Chest non-tender, No respiratory distress, Rales (very fine), Other (slow shallow respirations) Cardiovascular: positive: Regular rate & rhythm. negative: Gallop/S4, Friction rub Abdomen: positive: No organomegaly, Nml bowel sounds, No distention Skin: positive: Warm, Pallor Extremities: positive: Pedal edema Neurologic/Psychiatric: positive: Other (intubated, sedated, pupils slow but responsive, breathing above the vent rate.) - Lab Results Fish Bones: 02/04/20 03:45 02/04/20 03:45 Other Labs: Lab Results x24hrs 02/04/20 02/04/20 02/04/20 Range/Units 05:34 04:50 03:45 WBC (4.8-10.8) x10^3/uL RBC (4.20-5.40) 10^6/uL Hgb (12.0-16.0) g/dL Hct (37.0-47.0) % MCV (81.0-99.0) fL MCH (27.0-31.0) pg MCHC (32.0-36.0) g/dL RDW (12.0-15.0) % Plt Count (130-450) 10^3/uL MPV (7.9-10.8) fL Neut # (Auto) (1.5-6.6) 10^3/uL Lymph # (Auto) (1.5-3.5) 10^3/uL Crawford # (Auto) (0.0-1.0) 10^3/uL Eos # (Auto) (0.0-0.7) 10^3/uL Baso # (Auto) (0.0-0.1) 10^3/uL Absolute Nucleated RBC x10^3/uL Nucleated RBC % /100WBC Bld Gas Analysis Time 0456 Sample Site RIGHT RADIAL ABG pH 7.42 (7.35-7.45) ABG pCO2 39 (34-45) mmHg ABG pO2 67 L (80-100) mmHg ABG HCO3 25.1 (22.0-26.0) mmol/L ABG Total CO2 26.4 (21.0-29.0) MMOL/L ABG O2 Saturation 93 L (94-98) % ABG Base Excess 0.7 (-2.0-3.0) mmol/L Kelvin Test POSITIVE VBG pH 7.351 (7.31-7.41) Ionized Calcium 1.05 L (1.15-1.33) mmol/L Respiration Rate 18 b/min O2 Delivery Device VENTILATOR Vent Mode ASSIST/CONTROL FiO2 45.00 Tidal Volume 470 mL PEEP 5 cmH2O Sodium (135-145) mmol/L Potassium (3.5-5.0) mmol/L Chloride (101-111) mmol/L Carbon Dioxide (21-32) mmol/L Anion Gap (6-13) BUN (6-20) mg/dL Creatinine (0.4-1.0) mg/dL Estimated GFR (MDRD) (>89) Glucose (70-100) mg/dL POC Whole Bld Glucose 87 (70 - 100) mg/dL Calcium (8.5-10.3) mg/dL Phosphorus (2.5-4.6) mg/dL Magnesium (1.7-2.8) mg/dL 02/04/20 02/04/20 02/03/20 Range/Units 03:45 03:45 23:05 WBC 11.3 H (4.8-10.8) x10^3/uL RBC 3.05 L (4.20-5.40) 10^6/uL Hgb 8.5 L (12.0-16.0) g/dL Hct 28.2 L (37.0-47.0) % MCV 92.5 (81.0-99.0) fL MCH 27.9 (27.0-31.0) pg MCHC 30.1 L (32.0-36.0) g/dL RDW 15.4 H (12.0-15.0) % Plt Count 486 H (130-450) 10^3/uL MPV 9.6 (7.9-10.8) fL Neut # (Auto) 7.1 H (1.5-6.6) 10^3/uL Lymph # (Auto) 2.5 (1.5-3.5) 10^3/uL Crawford # (Auto) 0.9 (0.0-1.0) 10^3/uL Eos # (Auto) 0.5 (0.0-0.7) 10^3/uL Baso # (Auto) 0.0 (0.0-0.1) 10^3/uL Absolute Nucleated RBC 0.00 x10^3/uL Nucleated RBC % 0.0 /100WBC Bld Gas Analysis Time Sample Site ABG pH (7.35-7.45) ABG pCO2 (34-45) mmHg ABG pO2 (80-100) mmHg ABG HCO3 (22.0-26.0) mmol/L ABG Total CO2 (21.0-29.0) MMOL/L ABG O2 Saturation (94-98) % ABG Base Excess (-2.0-3.0) mmol/L Kelvin Test VBG pH (7.31-7.41) Ionized Calcium (1.15-1.33) mmol/L Respiration Rate b/min O2 Delivery Device Vent Mode FiO2 Tidal Volume mL PEEP cmH2O Sodium 138 (135-145) mmol/L Potassium 3.7 (3.5-5.0) mmol/L Chloride 104 (101-111) mmol/L Carbon Dioxide 26 (21-32) mmol/L Anion Gap 8.0 (6-13) BUN 18 (6-20) mg/dL Creatinine 1.3 H (0.4-1.0) mg/dL Estimated GFR (MDRD) 42 L (>89) Glucose 132 H (70-100) mg/dL POC Whole Bld Glucose 107 H (70 - 100) mg/dL Calcium 7.2 L (8.5-10.3) mg/dL Phosphorus 3.7 (2.5-4.6) mg/dL Magnesium 2.0 (1.7-2.8) mg/dL 02/03/20 02/03/20 Range/Units 18:07 11:48 WBC (4.8-10.8) x10^3/uL RBC (4.20-5.40) 10^6/uL Hgb (12.0-16.0) g/dL Hct (37.0-47.0) % MCV (81.0-99.0) fL MCH (27.0-31.0) pg MCHC (32.0-36.0) g/dL RDW (12.0-15.0) % Plt Count (130-450) 10^3/uL MPV (7.9-10.8) fL Neut # (Auto) (1.5-6.6) 10^3/uL Lymph # (Auto) (1.5-3.5) 10^3/uL Crawford # (Auto) (0.0-1.0) 10^3/uL Eos # (Auto) (0.0-0.7) 10^3/uL Baso # (Auto) (0.0-0.1) 10^3/uL Absolute Nucleated RBC x10^3/uL Nucleated RBC % /100WBC Bld Gas Analysis Time Sample Site ABG pH (7.35-7.45) ABG pCO2 (34-45) mmHg ABG pO2 (80-100) mmHg ABG HCO3 (22.0-26.0) mmol/L ABG Total CO2 (21.0-29.0) MMOL/L ABG O2 Saturation (94-98) % ABG Base Excess (-2.0-3.0) mmol/L Kelvin Test VBG pH (7.31-7.41) Ionized Calcium (1.15-1.33) mmol/L Respiration Rate b/min O2 Delivery Device Vent Mode FiO2 Tidal Volume mL PEEP cmH2O Sodium (135-145) mmol/L Potassium (3.5-5.0) mmol/L Chloride (101-111) mmol/L Carbon Dioxide (21-32) mmol/L Anion Gap (6-13) BUN (6-20) mg/dL Creatinine (0.4-1.0) mg/dL Estimated GFR (MDRD) (>89) Glucose (70-100) mg/dL POC Whole Bld Glucose 103 H 118 H (70 - 100) mg/dL Calcium (8.5-10.3) mg/dL Phosphorus (2.5-4.6) mg/dL Magnesium (1.7-2.8) mg/dL Assessment/Plan - Problem List (1) Hypotension Impression: Due to precedex and due to shock. On continuous IVF for support and then she has needed Levophed since evening 01/30. Weaned off 01/31 in am but after 2 hours she again became hypotensive and bradycardic in the 40s to 50. Dopamine started 01/31 instead of levophed and since then systolic stable. She has been in the systolic 120s range for 72 hours and still on it. Urine output adequate but getting large numbers (+) for I/O. Will give lasix this am. (2) Bradycardia due to meds. Resolved once off Precedex. Assessment/Plan: avoid betablockers. Troponin was 15.4 02/01. (3) Pneumonia due to 2019 novel coronavirus Assessment/Plan: This patient is here from [place] helping care for her mother, was staying at her sister's house, and probably caught the virus during the air travel. She also has CLL and is immunocompromised. Patient had a positive COVID test when she did a drive through test at our tent. She tried to work through a cough and fever at home for about a week before presenting. She was admitted to Med Surg. Her chest x-ray has worsened and supplemental oxygen demands have increased. She needed to be transferred to the ICU 01/30 and intubated. Day #5 on vent. Stopped Zithromax after 4 doses completed 02/02 per pharmacy for the community-acquired pneumonia plus this diagnosis. Continue hydroxychloroquine Day #6 and is to stop this morning after 6 total doses. 02/01 I spoke to her sister, Shira Montiel at [phone]. I updated her on 2 systems that are in failure. Respiratory and circulatory. Although she is in critical condition, she is maintaining and stable. I did ask about CODE STATUS. She was to be intubated for this illness. But Ms. Montiel asked me to speak to the patient's , Montrell Shannon, who is in [place]. So I spoke to Montrell Shannon at . He states that the intubation was for short- term management of this viral pneumonia with ARDS. His would not want to be kept on life support long-term. As such if she deteriorates with her condition, and she gets worse in spite of our aggressive support with cardiac arrest, he does not want CPR per her wishes. 02/02 she was contacted. She is in line with her to get screened for virus. In tears. Patient's condition discussed.No change in pulmonary or circulatory system. CPR wishes discussed. She would like nursing to put phone to sister's ear around 1 pm so family can speak at patient. (4) ARDS (adult respiratory distress syndrome) with metabolic acidosis, acidosis has resolved Assessment/Plan: Patient is on the ventilator. Day #5 AC rate of 18, TV 470, PEEP 5, FiO2 down to 40% from 60% yesterday and O2 sat a little low so going back up to 50% PIP on the [id number] are up to 40s bc she is triggering the vent with stacked breaths and agitation. Today she is also leaking around the cuff. ABG with pH 7.42/30 9/60 7/25.1/base excess +0.7 I had added bicarb in D5 on 02/01 for her negative base excess of -6 to -12. This am BE is normal now. She does have a history of asthma/COPD and was on inhalers at home. We will try not to use IV steroids or inline nebs with a COVID pneumonia For sedation we were using Precedex. However keeping her intubated is become a balance of heart rate, blood pressure plus the need for sedation. Precedex has been stopped. It has been known to rarely cause acidosis. Changed over to Versed and she is on max dose of Versed. There is a nationwide shortage, and she is using quite a bit of Versed. Plaquenil has also been known to cause metabolic acidosis, especially for people who are female, 60+ years old, are on Zometa, and have multiple myeloma. She doesn't have myeloma is not on Zometa but does have CLL. PLAN: 02/01 Changed to propofol plus fentanyl and that will be continued. Does have prolonged QT because she is on hydroxychloroquine and propofol. ~500. 02/02 Plaquenil stopped. No ectopy on tele. Continue ventilatory support for now. I have asked sister to consider trach once we reach that point. 02/03 She has incrementally improved with nml acid/base, less Fi02. Continue ventilatory support and hopefully bring down PEEP tomorrow if Fi02 requirement can stay down. Stop D5 drip since it is 100 cc/hr and she is fluid overloaded and give another dose of lasix. (5) CAP (community acquired pneumonia) Assessment/Plan: As above Blood cultures negative White cell count is rising. 8.9 >11.6> 13.4>11.3 Zosyn Day #4/, started late pm 01/30 Completed 6 doses of Hydroxychloroquinine 01/29-02/02 Vanocomycin done 01/29 then adjusted 01/30 and again 02/02 for supratheraputic trough, Day #7. Will stop s/p azithromycin 4 Days completed 02/02 Now that abx to be stopped with reassess in next 24 hours. Continue zosyn. (6) Hypothyroidism Assessment/Plan: She was on p.o. home dose of thyroid replacement. Will change to IV every 5 day replacement (7) Anemia Assessment/Plan: Follow CBC daily 12.5 >10.0 >10.7 >9.7 >10.1>9.4>8.5 Transfuse if Hgb <7 (8) CLL (chronic lymphocytic leukemia)/immunocompromised status Assessment/Plan: She was getting her "Patient on dose" chemotherapy during the first 2 days of hospitalization here, and was in contact with her Oncologist in [place]. (9) Anxiety Assessment/Plan: She was on duloxetine orally. She reported that she will need anxiolytics while being on the ventilator electively. Therefore her Versed doses were being liberally increased but will not go on Propofol and fentanyl since we are running short of Versed. Per nursing the sedation wasn't working. 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 There are certain medications that will be avoided because of this diagnosis. (11) JANICE (acute kidney injury) Assessment/Plan: Resolved with iv hydration Creatinine 1.1 on admission, down to 0.8 January 31>1.0>1.2>1.3 today. Vanc has been adjusted, with known toxicity interaction b/n zosyn and vanc. today is 7 days of vancomycin. Will stop and reassess (12) Moderate protein calorie malnutrition Tube feeds ongoing (13) DVT prophylaxis is Lovenox.
[2020-02-04] MEDS: SODIUM BICARBONATE 100 MEQ in DEXTROSE 5% 1,000 ML IV SCH (10:36)
[2020-02-04] MEDS: SODIUM CHLORIDE FLUSH 0.9% 10 ML SYRINGE IVP SCH ×4 (10:57→17:42)
[2020-02-04] MEDS ORDERED: FUROSEMIDE 20 MG/2 ML VIAL IVP STA (10:57)
[2020-02-04 11:39] LABS: ABG BASE EXCESS 0.7 mmol/L (-2.0-3.0); ABG HCO3 26.6 mmol/L (22.0-26.0); ABG PCO2 49 mmHg (34-45); ABG PH 7.35 (7.35-7.45); ABG PO2 61 mmHg (80-100); ABG TCO2 28.1 MMOL/L (21.0-29.0)
[2020-02-04 11:40] LABS: ABG OXYGEN SATURATION 91 % (94-98); ALLEN TEST POSITIVE
--- NOTE | 2020-02-04 12:09 | XRAY Report ---
Reason: ET tube placment Procedure Date: 02/04/2020 Accession Number: [id number] / [id number] Procedure: XR - Chest 1 View X-Ray CPT Code: 14865 Final Report FULL RESULT: EXAM: CHEST RADIOGRAPHY EXAM DATE: 02/04/2020 11:51 AM. CLINICAL HISTORY: ET tube placement. COMPARISON: CHEST 1 VIEW 02/02/2020 8:44 AM CHEST 1 VIEW 01/29/2020 10:09 AM. TECHNIQUE: 1 view. FINDINGS: Lungs/Pleura: There are patchy bilateral lung opacities. There is left pleural effusion. There is no evidence of pneumothorax. Mediastinum: Heart size is unchanged. Other: Lines are stable. IMPRESSION: 1. Lines are stable. Endotracheal tube tip is 4 cm above the jacoby. 2. Lung volumes and heart size are stable. 3. There are patchy bilateral lung opacities. There is left pleural effusion. 4. There is no evidence of pneumothorax. [facility]
[2020-02-04] MEDS: DOPamine 800 MG/500 ML 800 MG/500 ML BAG IV SCH (21:25)
[2020-02-05] MEDS: PROPOFOL 1000 MG/100 ML 100 ML IV SCH ×7 (00:12→22:38)
[2020-02-05] MEDS: SODIUM CHLORIDE FLUSH 0.9% 10 ML SYRINGE IVP SCH ×5 (01:17→17:05)
[2020-02-05] MEDS: SODIUM CHLORIDE FLUSH 0.9% 10 ML SYRINGE IVP PRN ×3 (03:36→11:19)
[2020-02-05 03:48] LABS: BASOPHILS % (AUTO) 0.3 %; EOSINOPHILS # (AUTO) 0.5 10^3/uL (0.0-0.7); EOSINOPHILS % (AUTO) 4.3 %; HGB - HEMOGLOBIN 8.6 g/dL (12.0-16.0); LYMPHOCYTES # (AUTO) 3.7 10^3/uL (1.5-3.5); LYMPHOCYTES % (AUTO) 31.2 %; MEAN CORPUSCULAR HEMOGLOBIN 29.1 pg (27.0-31.0); MEAN CORPUSCULAR HGB CONC 30.8 g/dL (32.0-36.0); MEAN CORPUSCULAR VOLUME 94.3 fL (81.0-99.0); MEAN PLATELET VOLUME 9.2 fL (7.9-10.8); MONOCYTES # (AUTO) 0.9 10^3/uL (0.0-1.0); NEUTROPHILS # (AUTO) 6.3 10^3/uL (1.5-6.6); NEUTROPHILS % (AUTO) 53.8 %; PLT - PLATELET COUNT 511 10^3/uL (130-450); RED BLOOD COUNT 2.96 10^6/uL (4.20-5.40); RED CELL DISTRIBUTION WIDTH 15.4 % (12.0-15.0); WHITE BLOOD COUNT 11.8 x10^3/uL (4.8-10.8)
[2020-02-05 03:53] LABS: VBG PH 7.314 (7.31-7.41)
[2020-02-05 03:57] LABS: CALCIUM 7.6 mg/dL (8.5-10.3); CREATININE 1.6 mg/dL (0.4-1.0)
[2020-02-05 04:01] LABS: MAGNESIUM 2.4 mg/dL (1.7-2.8); PHOSPHORUS 5.5 mg/dL (2.5-4.6)
[2020-02-05] MEDS: PIPERACILLIN/TAZOBACTAM 3.375 GM in SODIUM CHLORIDE 0.9% MINIBAG 100 ML IV SCH ×3 (05:27→17:05)
[2020-02-05] MEDS: fentaNYL 2,500 MCG in SODIUM CHLORIDE 0.9% 200 ML IV SCH ×2 (05:32→16:59)
[2020-02-05] MEDS: LEVOTHYROXINE 125 MCG TABLET PO SCH (06:09)
[2020-02-05] MEDS: CHLORHEXIDINE GLUCONATE 15 ML UDC PO SCH ×2 (09:04→20:27)
[2020-02-05] MEDS: guaiFENesin 600 MG TABLET PO SCH ×2 (09:20→20:27)
[2020-02-05] MEDS: polyethylene glycoL 3350 17 GM PACKET PO SCH (09:20)
[2020-02-05] MEDS: PANTOPRAZOLE 40 MG VIAL IVP SCH ×2 (09:20→20:27)
[2020-02-05] MEDS: ENOXAPARIN 40 MG/0.4 ML SYRINGE SUBQ SCH (09:20)
--- NOTE | 2020-02-05 09:48 | PROVIDER PROGRESS NOTE ---
Subjective - Prog Note Date Prog Note Date: 02/05/20 - Subjective Subjective: Yesterday her PCO2 was 49 with a PO2 of 61 so her FiO2 was increased temporarily. She is back down to 50% today. Venous pH is 7.3. Assist control, tidal volume 470, PEEP of 5. On February 02 she had 7000 L in, yesterday she had 5500 cc in. When she came into the hospital she was 115 kg. Today she is 134 kg. I stopped her IV fluids, maintenance, yesterday. She is not getting IV flush, propofol drip, Zosyn, fentanyl as needed. Dopamine continues at 6 mics per kilogram. She was on 3 mics February 03, and has been gradually increasing to 4 than 5 and went to 6 at 5:00 in the evening on the second. Blood pressure 113/65 right now. Her BUN and creatinine are climbing. She was 14 and 1.0 on February 01. Then 15 and 1.2, then 18 and 1.3, and today she is 26 and 1.6. Current Medications - Current Medications Current Medications: Active Medications Chlorhexidine Gluconate (Peridex) 15 ml PO BID [facility] Last Admin: 02/05/20 09:04 Dose: 15 ml Enoxaparin Sodium (Lovenox) 40 mg SUBQ DAILY [facility] Last Admin: 02/05/20 09:20 Dose: 40 mg Fentanyl (Fentanyl) 25 mcg IVP Q2HR PRN PRN Reason: PAIN Last Admin: 02/02/20 09:12 Dose: 25 mcg Guaifenesin (Mucinex) 600 mg PO BID [facility] Last Admin: 02/05/20 09:20 Dose: 600 mg Piperacillin Sod/Tazobactam (Sod 3.375 gm/ Sodium Chloride) 100 mls @ 200 mls/hr IV Q6H [facility] Last Infusion: 02/05/20 06:24 Dose: Infused Dopamine HCl/Dextrose (Dopamine) 800 mg in 500 mls @ 8.85 mls/hr IV .[id number] [facility]; Protocol Last Titration: 02/05/20 02:26 Dose: 6 mcg/kg/min, 26.55 mls/hr Propofol (Diprivan) 100 mls @ 7.11 mls/hr IV .Q14H4M [facility]; Protocol Last Admin: 02/05/20 06:22 Dose: 25 mcg/kg/min, 17.775 mls/hr Fentanyl 2,500 mcg/ Sodium (Chloride) 250 mls @ 11.85 mls/hr IV .Q21H6M [facility]; Protocol Last Admin: 02/05/20 05:32 Dose: 1 mcg/kg/hr, 11.85 mls/hr Levothyroxine Sodium (Synthroid) 125 mcg PO QDAC [facility] Last Admin: 02/05/20 06:09 Dose: 125 mcg Ondansetron HCl (Zofran Inj) 4 mg IVP Q6HR PRN PRN Reason: Nausea / Vomiting Pantoprazole Sodium (Protonix) 40 mg IVP BID [facility] Last Admin: 02/05/20 09:20 Dose: 40 mg Polyethylene Glycol (Miralax) 17 gm PO DAILY [facility] Last Admin: 02/05/20 09:20 Dose: 17 gm Sodium Chloride (Normal Saline Flush 0.9%) 10 ml IVP PRN PRN PRN Reason: NEEDED PER PROVIDER ORDERS Last Admin: 02/05/20 03:37 Dose: 20 ml Sodium Chloride (Normal Saline Flush 0.9%) 10 ml IVP 0100,0900,1700 [facility] Last Admin: 02/05/20 09:21 Dose: 10 ml Sodium Chloride (Normal Saline Flush 0.9%) 10 ml IVP 0100,0900,1700 [facility] Last Admin: 02/05/20 09:21 Dose: Not Given Sodium Chloride (Normal Saline Flush 0.9%) 10 ml IVP PRN PRN PRN Reason: NEEDED PER PROVIDER ORDERS Last Admin: 02/05/20 03:36 Dose: 10 ml Zolpidem Tartrate (Ambien) 5 mg PO QPM PRN PRN Reason: Insomnia Last Admin: 01/30/20 20:38 Dose: 5 mg Duloxetine HCl [Cymbalta] 2 tab DAILY 01/29/20 Levothyroxine [Synthroid] 1 tab DAILY 01/29/20 Melatonin 1 tab DAILY 01/29/20 Objective - Vital Signs/Intake & Output Reviewed Vital Signs: Yes Vital Signs: Vital Signs Temp Pulse Pulse Resp BP Pulse Ox 02/05/20 09:37 96 02/05/20 09:00 37.2 C 96 18 113/65 97 02/05/20 08:00 90 18 116/55 L 96 02/05/20 07:29 95 04/03/20 07:00 86 17 124/68 98 02/05/20 06:00 36.8 C 81 18 121/65 98 Intake & Output: Intake & Output 02/02/20 02/03/20 02/04/20 02/05/20 23:59 23:59 23:59 23:59 Intake Total 6717.804 7081.455 5516.152 1103.880 Output Total 1368 2541 1560 1095 Balance 5349.804 4540.455 3956.152 8.880 - Objective General Appearance: positive: Other (intubated and sedated) Eyes Bilateral: positive: PERRL (sluggish) Neck: positive: No JVD. negative: Stiff neck Respiratory: positive: Chest non-tender, No respiratory distress, Rales, Other (Patchy bilateral lung opacities on chest x-ray yesterday. Left pleural effusion still present. But not able to be tapped.) Cardiovascular: positive: Regular rate & rhythm. negative: Gallop/S4, Friction rub Abdomen: positive: No organomegaly, Nml bowel sounds, No distention Skin: positive: Warm, Dry Extremities: positive: Pedal edema Neurologic/Psychiatric: positive: Other (intubated, sedated.) - Lab Results Fish Bones: 02/05/20 03:40 02/05/20 03:40 Other Labs: Lab Results x24hrs 02/05/20 02/05/20 02/05/20 Range/Units 05:17 03:40 03:40 WBC (4.8-10.8) x10^3/uL RBC (4.20-5.40) 10^6/uL Hgb (12.0-16.0) g/dL Hct (37.0-47.0) % MCV (81.0-99.0) fL MCH (27.0-31.0) pg MCHC (32.0-36.0) g/dL RDW (12.0-15.0) % Plt Count (130-450) 10^3/uL MPV (7.9-10.8) fL Neut # (Auto) (1.5-6.6) 10^3/uL Lymph # (Auto) (1.5-3.5) 10^3/uL [place] # (Auto) (0.0-1.0) 10^3/uL Eos # (Auto) (0.0-0.7) 10^3/uL Baso # (Auto) (0.0-0.1) 10^3/uL Absolute Nucleated RBC x10^3/uL Nucleated RBC % /100WBC Bld Gas Analysis Time Sample Site ABG pH (7.35-7.45) ABG pCO2 (34-45) mmHg ABG pO2 (80-100) mmHg ABG HCO3 (22.0-26.0) mmol/L ABG Total CO2 (21.0-29.0) MMOL/L ABG O2 Saturation (94-98) % ABG Base Excess (-2.0-3.0) mmol/L Kelvin Test VBG pH 7.314 (7.31-7.41) Ionized Calcium 1.07 L (1.15-1.33) mmol/L Respiration Rate b/min O2 Delivery Device Vent Mode FiO2 Tidal Volume mL PEEP cmH2O Pressure Support Vent cmH2O Sodium (135-145) mmol/L Potassium (3.5-5.0) mmol/L Chloride (101-111) mmol/L Carbon Dioxide (21-32) mmol/L Anion Gap (6-13) BUN (6-20) mg/dL Creatinine (0.4-1.0) mg/dL Estimated GFR (MDRD) (>89) Glucose (70-100) mg/dL POC Whole Bld Glucose 94 (70 - 100) mg/dL Calcium (8.5-10.3) mg/dL Phosphorus 5.5 H (2.5-4.6) mg/dL Magnesium 2.4 (1.7-2.8) mg/dL 02/05/20 02/05/20 02/04/20 Range/Units 03:40 03:40 23:25 WBC 11.8 H (4.8-10.8) x10^3/uL RBC 2.96 L (4.20-5.40) 10^6/uL Hgb 8.6 L (12.0-16.0) g/dL Hct 27.9 L (37.0-47.0) % MCV 94.3 (81.0-99.0) fL MCH 29.1 (27.0-31.0) pg MCHC 30.8 L (32.0-36.0) g/dL RDW 15.4 H (12.0-15.0) % Plt Count 511 H (130-450) 10^3/uL MPV 9.2 (7.9-10.8) fL Neut # (Auto) 6.3 (1.5-6.6) 10^3/uL Lymph # (Auto) 3.7 H (1.5-3.5) 10^3/uL [place] # (Auto) 0.9 (0.0-1.0) 10^3/uL Eos # (Auto) 0.5 (0.0-0.7) 10^3/uL Baso # (Auto) 0.0 (0.0-0.1) 10^3/uL Absolute Nucleated RBC 0.00 x10^3/uL Nucleated RBC % 0.0 /100WBC Bld Gas Analysis Time Sample Site ABG pH (7.35-7.45) ABG pCO2 (34-45) mmHg ABG pO2 (80-100) mmHg ABG HCO3 (22.0-26.0) mmol/L ABG Total CO2 (21.0-29.0) MMOL/L ABG O2 Saturation (94-98) % ABG Base Excess (-2.0-3.0) mmol/L Kelvin Test VBG pH (7.31-7.41) Ionized Calcium (1.15-1.33) mmol/L Respiration Rate b/min O2 Delivery Device Vent Mode FiO2 Tidal Volume mL PEEP cmH2O Pressure Support Vent cmH2O Sodium 140 (135-145) mmol/L Potassium 4.2 (3.5-5.0) mmol/L Chloride 104 (101-111) mmol/L Carbon Dioxide 26 (21-32) mmol/L Anion Gap 10.0 (6-13) BUN 26 H (6-20) mg/dL Creatinine 1.6 H (0.4-1.0) mg/dL Estimated GFR (MDRD) 33 L (>89) Glucose 124 H (70-100) mg/dL POC Whole Bld Glucose 108 H (70 - 100) mg/dL Calcium 7.6 L (8.5-10.3) mg/dL Phosphorus (2.5-4.6) mg/dL Magnesium (1.7-2.8) mg/dL 02/04/20 02/04/20 02/04/20 Range/Units 18:31 11:59 11:30 WBC (4.8-10.8) x10^3/uL RBC (4.20-5.40) 10^6/uL Hgb (12.0-16.0) g/dL Hct (37.0-47.0) % MCV (81.0-99.0) fL MCH (27.0-31.0) pg MCHC (32.0-36.0) g/dL RDW (12.0-15.0) % Plt Count (130-450) 10^3/uL MPV (7.9-10.8) fL Neut # (Auto) (1.5-6.6) 10^3/uL Lymph # (Auto) (1.5-3.5) 10^3/uL [place] # (Auto) (0.0-1.0) 10^3/uL Eos # (Auto) (0.0-0.7) 10^3/uL Baso # (Auto) (0.0-0.1) 10^3/uL Absolute Nucleated RBC x10^3/uL Nucleated RBC % /100WBC Bld Gas Analysis Time 1137 Sample Site RIGHT RADIAL ABG pH 7.35 (7.35-7.45) ABG pCO2 49 H (34-45) mmHg ABG pO2 61 L (80-100) mmHg ABG HCO3 26.6 H (22.0-26.0) mmol/L ABG Total CO2 28.1 (21.0-29.0) MMOL/L ABG O2 Saturation 91 L (94-98) % ABG Base Excess 0.7 (-2.0-3.0) mmol/L Kelvin Test POSITIVE VBG pH (7.31-7.41) Ionized Calcium (1.15-1.33) mmol/L Respiration Rate 18 b/min O2 Delivery Device VENTILATOR Vent Mode ASSIST/CONTROL FiO2 55.00 Tidal Volume 470 mL PEEP 5 cmH2O Pressure Support Vent 50 cmH2O Sodium (135-145) mmol/L Potassium (3.5-5.0) mmol/L Chloride (101-111) mmol/L Carbon Dioxide (21-32) mmol/L Anion Gap (6-13) BUN (6-20) mg/dL Creatinine (0.4-1.0) mg/dL Estimated GFR (MDRD) (>89) Glucose (70-100) mg/dL POC Whole Bld Glucose 106 H 96 (70 - 100) mg/dL Calcium (8.5-10.3) mg/dL Phosphorus (2.5-4.6) mg/dL Magnesium (1.7-2.8) mg/dL Assessment/Plan - Problem List (1) Hypotension Impression: Due to precedex and due to shock. On continuous IVF for support and then she has needed Levophed since evening 01/30. Weaned off 01/31 in am but after 2 hours she again became hypotensive and bradycardic in the 40s to 50. Dopamine started 01/31 instead of levophed and since then systolic stable. She has been in the systolic 120s range for 96 hours and still on it. Urine output adequate but getting large numbers (+) for I/O. Given lasix / w good results but creat bumped. By now she shouldn't require pressor support. Check ECHO and troponins. Latter were not elevated before. (2) Bradycardia due to meds. Resolved once off Precedex. Assessment/Plan: avoid betablockers. Troponin was 15.4 02/01. (3) Pneumonia due to 2019 novel coronavirus Assessment/Plan: This patient is here from [place] helping care for her mother, was staying at her sister's house, and probably caught the virus during the air travel. She also has CLL and is immunocompromised. Patient had a positive COVID test when she did a drive through test at our tent. She tried to work through a cough and fever at home for about a week before presenting. She was admitted to Med Surg. Her chest x-ray had worsened and supplemental oxygen demands have increased. She needed to be transferred to the ICU 01/30 and intubated. Day #6 on vent. Stopped Zithromax after 4 doses completed 02/02 per pharmacy for the community- acquired pneumonia plus this diagnosis. Continue hydroxychloroquine Day #6 and is to stop this morning after 6 total doses. 02/01 I spoke to her sister, Shira Montiel at [phone]. I updated her on 2 systems that are in failure. Respiratory and circulatory. Although she is in critical condition, she is maintaining and stable. I did ask about CODE STATUS. She was to be intubated for this illness. But Ms. Montiel asked me to speak to the patient's , Montrell Shannon, who is in [place]. So I spoke to Montrell Shannon at . He states that the intubation was for short- term management of this viral pneumonia with ARDS. His would not want to be kept on life support long-term. As such if she deteriorates with her condition, and she gets worse in spite of our aggressive support with cardiac arrest, he does not want CPR per her wishes. 02/02 she was contacted. She is in line with her to get screened for virus. In tears. Patient's condition discussed.No change in pulmonary or circulatory system. CPR wishes discussed. She would like nursing to put phone to sister's ear around 1 pm so family can speak at patient. (4) ARDS (adult respiratory distress syndrome) with metabolic acidosis, acidosis has resolved Assessment/Plan: Patient is on the ventilator. Day #6 AC rate of 18, TV 470, PEEP 5, FiO2 50% I had added bicarb in D5 on 02/01 for her negative base excess of -6 to -12. By 4/ am BE was normal now. She does have a history of asthma/COPD and was on inhalers at home. We will try not to use IV steroids or inline nebs with a COVID pneumonia For sedation we were using Precedex. However keeping her intubated is become a balance of heart rate, blood pressure plus the need for sedation. Precedex has been stopped. It has been known to rarely cause acidosis. Changed over to Versed and she is on max dose of Versed. There is a nationwide shortage, and she is using quite a bit of Versed. Plaquenil has also been known to cause metabolic acidosis, especially for people who are female, 60+ years old, are on Zometa, and have multiple myeloma. She doesn't have myeloma is not on Zometa but does have CLL. PLAN: 02/01 Changed to propofol plus fentanyl and that will be continued. Does have prolonged QT because she is on hydroxychloroquine and propofol. ~500. 02/02 Plaquenil stopped. No ectopy on tele. Continue ventilatory support for now. I have asked sister to consider trach once we reach that point. 02/03 She has incrementally improved with nml acid/base, less Fi02. Continue ventilatory support and hopefully bring down PEEP today if Fi02 requirement can stay down. But she is still requiring 50%. Will wait. Stopped D5 drip 02/03 since it is 100 cc/hr and she is fluid overloaded and give a nother dose of lasix. (5) CAP (community acquired pneumonia) Assessment/Plan: As above Blood cultures negative White cell count is rising. 8.9 >11.6> 13.4>11.3>11.8 Zosyn Day #5/, started late pm 01/30 Completed 6 doses of Hydroxychloroquinine 01/29-02/02 Vanocomycin done 01/29 then adjusted 01/30 and again 02/02 for supratheraputic trough, Day #7. Will stop s/p azithromycin 4 Days completed 02/02 No fever with only single agent Zosyn on board. Day will stop Day #7 (6) Hypothyroidism Assessment/Plan: She was on p.o. home dose of thyroid replacement. Will change to IV every 5 day replacement (7) Anemia Assessment/Plan: Follow CBC daily 12.5 >10.0 >10.7 >9.7 >10.1>9.4>8.5>8.6 Transfuse if Hgb <7 (8) CLL (chronic lymphocytic leukemia)/immunocompromised status Assessment/Plan: She was getting her "Patient on dose" chemotherapy during the first 2 days of hospitalization here, and was in contact with her Oncologist in [place]. (9) Anxiety Assessment/Plan: She was on duloxetine orally. She reported that she will need anxiolytics while being on the ventilator electively. Therefore her Versed doses were being liberally increased but will not go on Propofol and fentanyl since we are running short of Versed. Per nursing the sedation wasn't working. 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 There are certain medications that will be avoided because of this diagnosis. (11) JANICE (acute kidney injury) Assessment/Plan: Resolved with iv hydration Creatinine 1.1 on admission, down to 0.8 January 31>1.0>1.2>1.3>1.6 today. Vanc has been adjusted, with known toxicity interaction b/n zosyn and vanc. Vanc stopped 02/03 and still climbing. Given lasix and that may have contributed to prerenal status but she is very edematous in spite of good nutrition. Will continue to monitor. (12) Moderate protein calorie malnutrition Tube feeds ongoing (13) DVT prophylaxis is Lovenox.
[2020-02-05] MEDS: DOPamine 800 MG/500 ML 800 MG/500 ML BAG IV SCH (17:04)
--- NOTE | 2020-02-05 18:11 | XRAY Report ---
Reason: r/o pulmonary edema Procedure Date: 02/05/2020 Accession Number: [id number] / [id number] Procedure: XR - Chest 1 View X-Ray CPT Code: 79639 Final Report FULL RESULT: EXAM: CHEST RADIOGRAPHY EXAM DATE: 02/05/2020 04:26 PM. CLINICAL HISTORY: Shortness of breath. R/o pulmonary edema. COMPARISON: CHEST 1 VIEW 02/04/2020 11:24 AM. TECHNIQUE: 1 view. FINDINGS IMPRESSION: The support devices are in similar position. ECG leads overlie the chest. Stable normal heart size. Diffuse right greater than left pulmonary opacities similar in appearance. Moderate left pleural effusion unchanged. No enlarging right effusion. No visualized pneumothorax.
[2020-02-06] MEDS: PIPERACILLIN/TAZOBACTAM 3.375 GM in SODIUM CHLORIDE 0.9% MINIBAG 100 ML IV SCH ×4 (00:20→17:54)
[2020-02-06] MEDS: SODIUM CHLORIDE FLUSH 0.9% 10 ML SYRINGE IVP SCH ×3 (00:23→16:21)
[2020-02-06] MEDS: fentaNYL 2,500 MCG in SODIUM CHLORIDE 0.9% 200 ML IV SCH ×3 (00:23→20:27)
[2020-02-06] MEDS: PROPOFOL 1000 MG/100 ML 100 ML IV SCH ×6 (02:50→22:21)
[2020-02-06 05:33] LABS: ABG HCO3 28.6 mmol/L (22.0-26.0); ABG PCO2 57 mmHg (34-45); ABG PH 7.32 (7.35-7.45); ABG TCO2 30.4 MMOL/L (21.0-29.0)
[2020-02-06 05:34] LABS: ABG BASE EXCESS 1.8 mmol/L (-2.0-3.0); ALLEN TEST POSITIVE
[2020-02-06 05:35] LABS: ABG OXYGEN SATURATION 83 % (94-98); ABG PO2 49 mmHg (80-100)
[2020-02-06] MEDS: SODIUM CHLORIDE FLUSH 0.9% 10 ML SYRINGE IVP PRN ×2 (05:52→05:53)
[2020-02-06 06:25] LABS: VBG PH 7.324 (7.31-7.41)
[2020-02-06 06:28] LABS: BASOPHILS % (AUTO) 0.4 %; EOSINOPHILS # (AUTO) 0.4 10^3/uL (0.0-0.7); EOSINOPHILS % (AUTO) 5.1 %; HGB - HEMOGLOBIN 8.1 g/dL (12.0-16.0); LYMPHOCYTES % (AUTO) 24.4 %; MEAN CORPUSCULAR HEMOGLOBIN 28.9 pg (27.0-31.0); MEAN CORPUSCULAR HGB CONC 30.5 g/dL (32.0-36.0); MEAN PLATELET VOLUME 10.1 fL (7.9-10.8); MONOCYTES # (AUTO) 0.7 10^3/uL (0.0-1.0); MONOCYTES % (AUTO) 8.1 %; NEUTROPHILS # (AUTO) 5.1 10^3/uL (1.5-6.6); NEUTROPHILS % (AUTO) 60.8 %; PLT - PLATELET COUNT 489 10^3/uL (130-450); WHITE BLOOD COUNT 8.3 x10^3/uL (4.8-10.8)
[2020-02-06 06:40] LABS: CALCIUM 8.1 mg/dL (8.5-10.3); CREATININE 1.4 mg/dL (0.4-1.0); MAGNESIUM 2.9 mg/dL (1.7-2.8)
[2020-02-06] MEDS: LEVOTHYROXINE 125 MCG TABLET PO SCH (06:50)
--- NOTE | 2020-02-06 07:33 | PROVIDER PROGRESS NOTE ---
Subjective - Prog Note Date Prog Note Date: 02/06/20 - Subjective Subjective: She remains intubated and sedated on propofol and fentanyl. An ABG obtained this morning showed a pH 7.32, PCO2 of 57, PO2 of 49 with oxygen saturation of 83%. This was on FiO2 of 50% and a PEEP of 8. Suspect this may be a mixed blood gas given she been saturating in the 90s on her pulse ox. Her FiO2 is increased 70% and a PEEP was increased to 8 after this blood gas. Current Medications - Current Medications Current Medications: Active Medications Chlorhexidine Gluconate (Peridex) 15 ml PO BID [facility] Last Admin: 02/05/20 20:27 Dose: 15 ml Enoxaparin Sodium (Lovenox) 40 mg SUBQ DAILY [facility] Last Admin: 02/05/20 09:20 Dose: 40 mg Fentanyl (Fentanyl) 25 mcg IVP Q2HR PRN PRN Reason: PAIN Last Admin: 02/02/20 09:12 Dose: 25 mcg Piperacillin Sod/Tazobactam (Sod 3.375 gm/ Sodium Chloride) 100 mls @ 200 mls/hr IV Q6H [facility] Last Infusion: 02/06/20 05:52 Dose: Infused Dopamine HCl/Dextrose (Dopamine) 800 mg in 500 mls @ 8.85 mls/hr IV .[id number] [facility]; Protocol Last Titration: 02/06/20 05:37 Dose: 8 mcg/kg/min, 35.4 mls/hr Propofol (Diprivan) 100 mls @ 7.11 mls/hr IV .Q14H4M [facility]; Protocol Last Admin: 02/06/20 08:13 Dose: 30 mcg/kg/min, 21.33 mls/hr Fentanyl 2,500 mcg/ Sodium (Chloride) 250 mls @ 11.85 mls/hr IV .Q21H6M [facility]; Protocol Last Titration: 02/06/20 06:32 Dose: 2 mcg/kg/hr, 23.7 mls/hr Norepinephrine Bitartrate 8 mg (/ Dextrose) 250 mls @ 15 mls/hr IV .[id number] [facility]; Protocol Levothyroxine Sodium (Synthroid) 125 mcg NG QDAC [facility] Ondansetron HCl (Zofran Inj) 4 mg IVP Q6HR PRN PRN Reason: Nausea / Vomiting Pantoprazole Sodium (Protonix) 40 mg IVP DAILY [facility] Sodium Chloride (Normal Saline Flush 0.9%) 10 ml IVP 0100,0900,1700 [facility] Last Admin: 02/06/20 00:23 Dose: 10 ml Sodium Chloride (Normal Saline Flush 0.9%) 10 ml IVP PRN PRN PRN Reason: NEEDED PER PROVIDER ORDERS Last Admin: 02/06/20 05:53 Dose: 10 ml Duloxetine HCl [Cymbalta] 2 tab DAILY 01/29/20 Levothyroxine [Synthroid] 1 tab DAILY 01/29/20 Melatonin 1 tab DAILY 01/29/20 Objective - Vital Signs/Intake & Output Vital Signs: Vital Signs Temp Pulse Pulse Resp BP BP Pulse Ox 02/06/20 07:30 96 02/06/20 07:00 94 18 122/59 L 100 02/06/20 06:00 103 H 17 100 02/06/20 05:50 99 16 131/58 H 02/06/20 05:49 98 16 02/06/20 05:46 98 15 02/06/20 05:45 92 16 123/67 02/06/20 05:44 93 16 02/06/20 05:40 89 17 110/65 02/06/20 05:39 89 20 02/06/20 05:38 88 02/06/20 05:37 88 18 96/55 L 02/06/20 05:36 85 18 02/06/20 05:35 86 18 81/43 L 02/06/20 05:34 86 18 02/06/20 05:31 96 19 02/06/20 05:30 102 H 16 81/48 L 02/06/20 05:29 96 28 H 02/06/20 05:15 89 18 02/06/20 05:01 93 17 02/06/20 05:00 93 92 17 123/68 123/68 98 02/06/20 04:59 93 17 02/06/20 04:45 90 18 02/06/20 04:31 91 17 02/06/20 04:30 93 16 127/66 02/06/20 04:29 94 17 02/06/20 04:15 89 17 02/06/20 04:08 36.8 C 86 88 18 109/47 L 108/50 L 97 02/06/20 04:07 84 18 02/06/20 04:01 85 18 02/06/20 04:00 85 84 18 99/38 L 99/38 L 97 02/06/20 03:59 87 18 02/06/20 03:45 82 18 Intake & Output: Intake & Output 02/03/20 02/04/20 02/05/20 02/06/20 23:59 23:59 23:59 23:59 Intake Total 7081.455 5516.152 3674.834 885.479 Output Total 2541 1560 1935 1080 Balance 4540.455 3956.152 1739.834 -194.521 - Objective General Appearance: positive: Other (Sedated and intubated.) Eyes Bilateral: positive: Other (Pupils constricted.) ENT: positive: ENT inspection nml, Other (ET tube in place.) Neck: positive: Nml inspection Respiratory: positive: Other (Diminished breath sounds.). negative: Rhonchi Cardiovascular: positive: Regular rate & rhythm, No murmur. negative: Tachycardia, Bradycardia Abdomen: positive: Non-tender, No distention Skin: positive: Warm, Dry Extremities: positive: Pedal edema (Trace nonpitting edema.) Neurologic/Psychiatric: positive: Other (Sedated. Unable to follow commands.) - Lab Results Fish Bones: 02/06/20 05:45 02/06/20 05:45 Other Labs: Lab Results x24hrs 02/06/20 02/06/20 02/06/20 Range/Units 06:00 05:45 05:45 WBC 8.3 (4.8-10.8) x10^3/uL RBC 2.80 L (4.20-5.40) 10^6/uL Hgb 8.1 L (12.0-16.0) g/dL Hct 26.6 L (37.0-47.0) % MCV 95.0 (81.0-99.0) fL MCH 28.9 (27.0-31.0) pg MCHC 30.5 L (32.0-36.0) g/dL RDW 15.0 (12.0-15.0) % Plt Count 489 H (130-450) 10^3/uL MPV 10.1 (7.9-10.8) fL Neut # (Auto) 5.1 (1.5-6.6) 10^3/uL Lymph # (Auto) 2.0 (1.5-3.5) 10^3/uL Pickens # (Auto) 0.7 (0.0-1.0) 10^3/uL Eos # (Auto) 0.4 (0.0-0.7) 10^3/uL Baso # (Auto) 0.0 (0.0-0.1) 10^3/uL Absolute Nucleated RBC 0.00 x10^3/uL Nucleated RBC % 0.0 /100WBC Bld Gas Analysis Time Sample Site ABG pH (7.35-7.45) ABG pCO2 (34-45) mmHg ABG pO2 (80-100) mmHg ABG HCO3 (22.0-26.0) mmol/L ABG Total CO2 (21.0-29.0) MMOL/L ABG O2 Saturation (94-98) % ABG Base Excess (-2.0-3.0) mmol/L Kelvin Test VBG pH 7.324 (7.31-7.41) Ionized Calcium 1.10 L (1.15-1.33) mmol/L Respiration Rate b/min O2 Delivery Device Vent Mode FiO2 Tidal Volume mL PEEP cmH2O Pressure Support Vent cmH2O Sodium 142 (135-145) mmol/L Potassium 4.7 (3.5-5.0) mmol/L Chloride 107 (101-111) mmol/L Carbon Dioxide 27 (21-32) mmol/L Anion Gap 8.0 (6-13) BUN 30 H (6-20) mg/dL Creatinine 1.4 H (0.4-1.0) mg/dL Estimated GFR (MDRD) 38 L (>89) Glucose 118 H (70-100) mg/dL POC Whole Bld Glucose (70 - 100) mg/dL Calcium 8.1 L (8.5-10.3) mg/dL Phosphorus 5.0 H (2.5-4.6) mg/dL Magnesium 2.9 H (1.7-2.8) mg/dL Triglycerides ( - 149) mg/dL 02/06/20 02/06/20 02/06/20 Range/Units 05:19 05:05 00:04 WBC (4.8-10.8) x10^3/uL RBC (4.20-5.40) 10^6/uL Hgb (12.0-16.0) g/dL Hct (37.0-47.0) % MCV (81.0-99.0) fL MCH (27.0-31.0) pg MCHC (32.0-36.0) g/dL RDW (12.0-15.0) % Plt Count (130-450) 10^3/uL MPV (7.9-10.8) fL Neut # (Auto) (1.5-6.6) 10^3/uL Lymph # (Auto) (1.5-3.5) 10^3/uL Pickens # (Auto) (0.0-1.0) 10^3/uL Eos # (Auto) (0.0-0.7) 10^3/uL Baso # (Auto) (0.0-0.1) 10^3/uL Absolute Nucleated RBC x10^3/uL Nucleated RBC % /100WBC Bld Gas Analysis Time 0526 Sample Site RIGHT RADIAL ABG pH 7.32 L (7.35-7.45) ABG pCO2 57 H (34-45) mmHg ABG pO2 49 L* (80-100) mmHg ABG HCO3 28.6 H (22.0-26.0) mmol/L ABG Total CO2 30.4 H (21.0-29.0) MMOL/L ABG O2 Saturation 83 L* (94-98) % ABG Base Excess 1.8 (-2.0-3.0) mmol/L Kelvin Test POSITIVE VBG pH (7.31-7.41) Ionized Calcium (1.15-1.33) mmol/L Respiration Rate 18 b/min O2 Delivery Device VENTILATOR Vent Mode ASSIST/CONTROL FiO2 50.00 Tidal Volume 470 mL PEEP 8 cmH2O Pressure Support Vent 50 cmH2O Sodium (135-145) mmol/L Potassium (3.5-5.0) mmol/L Chloride (101-111) mmol/L Carbon Dioxide (21-32) mmol/L Anion Gap (6-13) BUN (6-20) mg/dL Creatinine (0.4-1.0) mg/dL Estimated GFR (MDRD) (>89) Glucose (70-100) mg/dL POC Whole Bld Glucose 113 H 117 H (70 - 100) mg/dL Calcium (8.5-10.3) mg/dL Phosphorus (2.5-4.6) mg/dL Magnesium (1.7-2.8) mg/dL Triglycerides ( - 149) mg/dL 02/05/20 02/05/20 02/05/20 Range/Units 17:53 11:38 03:45 WBC (4.8-10.8) x10^3/uL RBC (4.20-5.40) 10^6/uL Hgb (12.0-16.0) g/dL Hct (37.0-47.0) % MCV (81.0-99.0) fL MCH (27.0-31.0) pg MCHC (32.0-36.0) g/dL RDW (12.0-15.0) % Plt Count (130-450) 10^3/uL MPV (7.9-10.8) fL Neut # (Auto) (1.5-6.6) 10^3/uL Lymph # (Auto) (1.5-3.5) 10^3/uL [place] # (Auto) (0.0-1.0) 10^3/uL Eos # (Auto) (0.0-0.7) 10^3/uL Baso # (Auto) (0.0-0.1) 10^3/uL Absolute Nucleated RBC x10^3/uL Nucleated RBC % /100WBC Bld Gas Analysis Time Sample Site ABG pH (7.35-7.45) ABG pCO2 (34-45) mmHg ABG pO2 (80-100) mmHg ABG HCO3 (22.0-26.0) mmol/L ABG Total CO2 (21.0-29.0) MMOL/L ABG O2 Saturation (94-98) % ABG Base Excess (-2.0-3.0) mmol/L Kelvin Test VBG pH (7.31-7.41) Ionized Calcium (1.15-1.33) mmol/L Respiration Rate b/min O2 Delivery Device Vent Mode FiO2 Tidal Volume mL PEEP cmH2O Pressure Support Vent cmH2O Sodium (135-145) mmol/L Potassium (3.5-5.0) mmol/L Chloride (101-111) mmol/L Carbon Dioxide (21-32) mmol/L Anion Gap (6-13) BUN (6-20) mg/dL Creatinine (0.4-1.0) mg/dL Estimated GFR (MDRD) (>89) Glucose (70-100) mg/dL POC Whole Bld Glucose 121 H 103 H (70 - 100) mg/dL Calcium (8.5-10.3) mg/dL Phosphorus (2.5-4.6) mg/dL Magnesium (1.7-2.8) mg/dL Triglycerides 145 ( - 149) mg/dL Assessment/Plan - Problem List (1) ARDS (adult respiratory distress syndrome) Impression: This is econdary to the novel coronavirus and pneumonia. She has not shown much improvement over the last 48 hours from a respiratory standpoint. Her ABG this morning showed a PO2 of 49 on FiO2 50% and a PEEP of 8. I do wonder if this blood gas may have been mixed venous and arterial given her oxygen saturation was in the 80s despite her saturating in the 90s on her pulse ox. Her FiO2 has since been increased to 70% and her PEEP to 10. We will repeat a blood gas after this changes and reassess. Chest x-ray yesterday showed bilateral opacities that were more severe on the right. We will repeat a chest x-ray today if her ABG shows significant hypoxia. Otherwise we will repeated in the morning. She has already completed a course of azithromycin. She was also treated with vancomycin and Zosyn which was discontinued for concern of acute kidney injury. She now only remains on Zosyn. This will be continued until February 06 to complete 7 days of therapy. Continue daily ABGs. Protonix IV for GI prophylaxis. Continue sedation with fentanyl and propofol. Her overall prognosis remains guarded at this time. (2) Pneumonia due to 2019 novel coronavirus Impression: This is the etiology of her acute hypoxic respiratory failure and ARDS. He does have a history of CLL and is immunocompromised. Her oxygen requirements have increased this morning and have not improved over the past 48 hours. She has already been treated with azithromycin and Plaquenil. We will continue the IV antibiotics as mentioned above with Zosyn until the end of tomorrow to complete 7 days of therapy. At this time, we will continue supportive care as mentioned above. (3) Hypotension Impression: This likely multifactorial from her sepsis and sedation related. She required increase in her dopamine overnight. Given that she started on dopamine for bradycardia, we will discontinue this and start her on Levophed. We will not administer more IV fluids this time given her positive fluid balance and the fact that she is edematous. We will continue to treat her underlying sepsis and attempt to wean her sedation as her respiratory status improves. (4) JANICE (acute kidney injury) Impression: Creatinine was elevated at 1.6 yesterday but is improved 1.4 today. Her acute kidney injury is likely multifactorial including possible ATN from hypotension as well as a combination of vancomycin and Zosyn. To hold off on further IV fluids given her positive fluid balance. We will also hold off on diuresis at this moment. We will start her on Levophed for her hypotension which will hopefully improve her perfusion. If renal function declines, we will obtain urine electrolytes and urinalysis for further evaluation (5) Anemia Impression: Her hemoglobin has slowly trended down since admission. It was 12.5 and today is 8.1. This is likely secondary to her critical illness as well as frequent lab draws. We will obtain a type and screen. There is no evidence of bleeding at this moment but we will continue to monitor. Lovenox for DVT prophylaxis. (6) CLL (chronic lymphocytic leukemia) Impression: She does have CLL and was receiving treatment prior to this admission. She is to follow-up on an outpatient basis after this hospitalization. (7) Hypothyroidism Impression: We will continue her Synthroid via NG tube. (8) Moderate protein-calorie malnutrition Impression: Continue with tube feeds. Nutrition consult.
[2020-02-06] MEDS: CHLORHEXIDINE GLUCONATE 15 ML UDC PO SCH ×2 (08:42→20:25)
[2020-02-06] MEDS: ENOXAPARIN 40 MG/0.4 ML SYRINGE SUBQ SCH (08:42)
[2020-02-06] MEDS: PANTOPRAZOLE 40 MG VIAL IVP SCH (08:43)
[2020-02-06] MEDS: DOPamine 800 MG/500 ML 800 MG/500 ML BAG IV SCH (09:15)
[2020-02-06 09:20] LABS: ABG BASE EXCESS 0.6 mmol/L (-2.0-3.0); ABG HCO3 26.5 mmol/L (22.0-26.0); ABG OXYGEN SATURATION 98 % (94-98); ABG PCO2 49 mmHg (34-45); ABG PH 7.35 (7.35-7.45); ABG PO2 129 mmHg (80-100); ALLEN TEST POSITIVE
[2020-02-06 21:14] LABS: ABG PCO2 43 mmHg (34-45); ABG PO2 73 mmHg (80-100)
[2020-02-06 21:15] LABS: ABG OXYGEN SATURATION 94 % (94-98); ABG TCO2 27.3 MMOL/L (21.0-29.0)
[2020-02-06 23:25] LABS: ABG BASE EXCESS 0.8 mmol/L (-2.0-3.0); ABG HCO3 25.7 mmol/L (22.0-26.0); ABG OXYGEN SATURATION 98 % (94-98); ABG PCO2 42 mmHg (34-45); ABG PO2 121 mmHg (80-100)
[2020-02-07] MEDS: PIPERACILLIN/TAZOBACTAM 3.375 GM in SODIUM CHLORIDE 0.9% MINIBAG 100 ML IV SCH ×4 (00:15→17:36)
[2020-02-07] MEDS: SODIUM CHLORIDE FLUSH 0.9% 10 ML SYRINGE IVP SCH ×4 (00:17→23:26)
[2020-02-07] MEDS: PROPOFOL 1000 MG/100 ML 100 ML IV SCH ×3 (01:35→09:10)
[2020-02-07] MEDS: fentaNYL 2,500 MCG in SODIUM CHLORIDE 0.9% 200 ML IV SCH ×4 (01:56→22:44)
[2020-02-07] MEDS ORDERED: SODIUM CHLORIDE 0.9% 500 ML ONE (02:03)
[2020-02-07 05:29] LABS: ABG BASE EXCESS -0.6 mmol/L (-2.0-3.0); ABG HCO3 24.8 mmol/L (22.0-26.0); ABG OXYGEN SATURATION 98 % (94-98); ABG PCO2 44 mmHg (34-45); ABG PH 7.37 (7.35-7.45); ABG PO2 115 mmHg (80-100); ABG TCO2 26.2 MMOL/L (21.0-29.0)
[2020-02-07 06:10] LABS: BASOPHILS # (AUTO) 0.1 10^3/uL (0.0-0.1); BASOPHILS % (AUTO) 0.8 %; EOSINOPHILS # (AUTO) 0.7 10^3/uL (0.0-0.7); EOSINOPHILS % (AUTO) 5.2 %; HGB - HEMOGLOBIN 8.8 g/dL (12.0-16.0); LYMPHOCYTES % (AUTO) 22.7 %; MEAN CORPUSCULAR HEMOGLOBIN 28.9 pg (27.0-31.0); MEAN CORPUSCULAR HGB CONC 30.8 g/dL (32.0-36.0); MEAN CORPUSCULAR VOLUME 94.1 fL (81.0-99.0); MEAN PLATELET VOLUME 9.7 fL (7.9-10.8); MONOCYTES # (AUTO) 1.1 10^3/uL (0.0-1.0); MONOCYTES % (AUTO) 8.5 %; NEUTROPHILS # (AUTO) 8.2 10^3/uL (1.5-6.6); NEUTROPHILS % (AUTO) 61.5 %; PLT - PLATELET COUNT 728 10^3/uL (130-450); RED BLOOD COUNT 3.04 10^6/uL (4.20-5.40); RED CELL DISTRIBUTION WIDTH 15.3 % (12.0-15.0); WHITE BLOOD COUNT 13.2 x10^3/uL (4.8-10.8)
[2020-02-07] MEDS: LEVOTHYROXINE 125 MCG TABLET NG SCH (06:16)
[2020-02-07 06:17] LABS: CALCIUM 7.9 mg/dL (8.5-10.3); CREATININE 1.1 mg/dL (0.4-1.0); MAGNESIUM 2.5 mg/dL (1.7-2.8); PHOSPHORUS 4.3 mg/dL (2.5-4.6)
[2020-02-07 06:22] LABS: CHOL/HDL RATIO 6.3 (<4.4); CHOLESTEROL 171 mg/dL; HDL CHOLESTEROL 27 mg/dL; LDL CHOLESTEROL,CALCULATED 113 mg/dL; LDL/HDL RATIO 4.2 (<4.4); VLDL CHOLESTEROL 31 mg/dL
--- NOTE | 2020-02-07 08:33 | PROVIDER PROGRESS NOTE ---
Subjective - Prog Note Date Prog Note Date: 02/07/20 - Subjective Subjective: Yesterday afternoon she was placed in the prone position as she had not been improving from a hypoxia standpoint. Overnight, she desaturated into the 80s when she was moved. Her FiO2 needed to be increased to 80% and her PEEP remained at 12. Repeat gas yesterday evening showed a PO2 of 121 on FiO2 of 80 T percent and PEEP of 12. This was decreased to FiO2 of 50% and a PEEP remained the same. This morning her ABG showed a PO2 of 115 on an FiO2 of 50%. She remains on propofol and fentanyl for sedation. She remains on norepinephrine at [facility] [place]. Current Medications - Current Medications Current Medications: Active Medications Chlorhexidine Gluconate (Peridex) 15 ml PO BID [facility] Last Admin: 02/06/20 20:25 Dose: 15 ml Enoxaparin Sodium (Lovenox) 40 mg SUBQ DAILY [facility] Last Admin: 02/06/20 08:42 Dose: 40 mg Fentanyl (Fentanyl) 25 mcg IVP Q2HR PRN PRN Reason: PAIN Last Admin: 02/02/20 09:12 Dose: 25 mcg Piperacillin Sod/Tazobactam (Sod 3.375 gm/ Sodium Chloride) 100 mls @ 200 mls/hr IV Q6H [facility] Stop: 02/07/20 23:59 Last Infusion: 02/07/20 06:16 Dose: Infused Fentanyl 2,500 mcg/ Sodium (Chloride) 250 mls @ 11.85 mls/hr IV .Q21H6M [facility]; Protocol Last Titration: 02/07/20 05:42 Dose: 4 mcg/kg/hr, 47.4 mls/hr Norepinephrine Bitartrate 8 mg (/ Dextrose) 250 mls @ 15 mls/hr IV .[id number] [facility]; Protocol Last Titration: 02/07/20 05:33 Dose: 14 mcg/min, 26.25 mls/hr Propofol (Diprivan) 100 mls @ 7.11 mls/hr IV .Q14H4M [facility]; Protocol Last Admin: 02/07/20 05:27 Dose: 45 mcg/kg/min, 31.995 mls/hr Levothyroxine Sodium (Synthroid) 125 mcg NG QDAC [facility] Last Admin: 02/07/20 06:16 Dose: Not Given Ondansetron HCl (Zofran Inj) 4 mg IVP Q6HR PRN PRN Reason: Nausea / Vomiting Pantoprazole Sodium (Protonix) 40 mg IVP DAILY [facility] Last Admin: 02/06/20 08:43 Dose: 40 mg Sodium Chloride (Normal Saline Flush 0.9%) 10 ml IVP 0100,0900,1700 [facility] Last Admin: 02/07/20 00:17 Dose: 10 ml Sodium Chloride (Normal Saline Flush 0.9%) 10 ml IVP PRN PRN PRN Reason: NEEDED PER PROVIDER ORDERS Last Admin: 02/06/20 05:53 Dose: 10 ml Duloxetine HCl [Cymbalta] 2 tab DAILY 01/29/20 Levothyroxine [Synthroid] 1 tab DAILY 01/29/20 Melatonin 1 tab DAILY 01/29/20 Objective - Vital Signs/Intake & Output Reviewed Vital Signs: Yes Vital Signs: Vital Signs Temp Pulse Pulse Resp BP BP BP 02/07/20 08:00 37.0 C 66 18 107/51 L 02/07/20 07:00 63 18 102/47 L 02/07/20 06:00 74 10 L 122/61 104/52 L 02/07/20 05:36 69 02/07/20 05:00 62 17 111/46 L 106/50 L Pulse Ox 02/07/20 08:00 98 02/07/20 07:00 98 02/07/20 06:00 93 02/07/20 05:36 02/07/20 05:00 98 Intake & Output: Intake & Output 02/04/20 02/05/20 02/06/20 02/07/20 23:59 23:59 23:59 23:59 Intake Total 5516.152 3674.834 2924.137 1268.870 Output Total 1560 1935 2288 1075 Balance 3956.152 1739.834 636.137 193.870 - Objective General Appearance: positive: Other (Sedated.) Eyes Bilateral: positive: Other (Her left eyelid is edematous.) ENT: positive: Other (Her face is edematous this morning. ET tube in place.) Respiratory: positive: Rhonchi. negative: Wheezes, Rales Cardiovascular: positive: Regular rate & rhythm, No murmur. negative: Tachycardia, Bradycardia Abdomen: positive: Non-tender, No distention Skin: positive: Warm, Dry Extremities: positive: Pedal edema (Trace nonpitting edema in the bilateral lower extremities.) Neurologic/Psychiatric: positive: Other (Unable to follow commands on sedation.) - Lab Results Fish Bones: 02/07/20 05:00 02/07/20 05:00 Other Labs: Lab Results x24hrs 02/07/20 02/07/20 02/07/20 Range/Units 06:20 05:10 05:00 WBC (4.8-10.8) x10^3/uL RBC (4.20-5.40) 10^6/uL Hgb (12.0-16.0) g/dL Hct (37.0-47.0) % MCV (81.0-99.0) fL MCH (27.0-31.0) pg MCHC (32.0-36.0) g/dL RDW (12.0-15.0) % Plt Count (130-450) 10^3/uL MPV (7.9-10.8) fL Neut # (Auto) (1.5-6.6) 10^3/uL Lymph # (Auto) (1.5-3.5) 10^3/uL [place] # (Auto) (0.0-1.0) 10^3/uL Eos # (Auto) (0.0-0.7) 10^3/uL Baso # (Auto) (0.0-0.1) 10^3/uL Absolute Nucleated RBC x10^3/uL Nucleated RBC % /100WBC Bld Gas Analysis Time 0510 Sample Site A-LINE ABG pH 7.37 (7.35-7.45) ABG pCO2 44 (34-45) mmHg ABG pO2 115 H (80-100) mmHg ABG HCO3 24.8 (22.0-26.0) mmol/L ABG Total CO2 26.2 (21.0-29.0) MMOL/L ABG O2 Saturation 98 (94-98) % ABG Base Excess -0.6 (-2.0-3.0) mmol/L Kelvin Test NOT APPLICABLE Respiration Rate 18 b/min O2 Delivery Device VENTILATOR O2 Liters/Min LPM Vent Mode ASSIST/CONTROL FiO2 50.00 Tidal Volume 470 mL PEEP 12 cmH2O Sodium (135-145) mmol/L Potassium (3.5-5.0) mmol/L Chloride (101-111) mmol/L Carbon Dioxide (21-32) mmol/L Anion Gap (6-13) BUN (6-20) mg/dL Creatinine (0.4-1.0) mg/dL Estimated GFR (MDRD) (>89) Glucose (70-100) mg/dL POC Whole Bld Glucose (70 - 100) mg/dL Calcium (8.5-10.3) mg/dL Phosphorus (2.5-4.6) mg/dL Magnesium (1.7-2.8) mg/dL Total Creatine Kinase (22-269) IU/L Triglycerides 154 H ( - 149) mg/dL Cholesterol 171 ( - 199) mg/dL LDL Cholesterol, Calc 113 ( - 129) mg/dL VLDL Cholesterol 31 mg/dL HDL Cholesterol 27 L (60 - ) mg/dL LDL/HDL Ratio 4.2 (<4.4) Cholesterol/HDL Ratio 6.3 (<4.4) Blood Type A NEGATIVE 02/07/20 02/07/20 02/07/20 Range/Units 05:00 05:00 00:19 WBC 13.2 H (4.8-10.8) x10^3/uL RBC 3.04 L (4.20-5.40) 10^6/uL Hgb 8.8 L (12.0-16.0) g/dL Hct 28.6 L (37.0-47.0) % MCV 94.1 (81.0-99.0) fL MCH 28.9 (27.0-31.0) pg MCHC 30.8 L (32.0-36.0) g/dL RDW 15.3 H (12.0-15.0) % Plt Count 728 H (130-450) 10^3/uL MPV 9.7 (7.9-10.8) fL Neut # (Auto) 8.2 H (1.5-6.6) 10^3/uL Lymph # (Auto) 3.0 (1.5-3.5) 10^3/uL [place] # (Auto) 1.1 H (0.0-1.0) 10^3/uL Eos # (Auto) 0.7 (0.0-0.7) 10^3/uL Baso # (Auto) 0.1 (0.0-0.1) 10^3/uL Absolute Nucleated RBC 0.00 x10^3/uL Nucleated RBC % 0.0 /100WBC Bld Gas Analysis Time Sample Site ABG pH (7.35-7.45) ABG pCO2 (34-45) mmHg ABG pO2 (80-100) mmHg ABG HCO3 (22.0-26.0) mmol/L ABG Total CO2 (21.0-29.0) MMOL/L ABG O2 Saturation (94-98) % ABG Base Excess (-2.0-3.0) mmol/L Kelvin Test Respiration Rate b/min O2 Delivery Device O2 Liters/Min LPM Vent Mode FiO2 Tidal Volume mL PEEP cmH2O Sodium 139 (135-145) mmol/L Potassium 5.1 H (3.5-5.0) mmol/L Chloride 106 (101-111) mmol/L Carbon Dioxide 25 (21-32) mmol/L Anion Gap 8.0 (6-13) BUN 28 H (6-20) mg/dL Creatinine 1.1 H (0.4-1.0) mg/dL Estimated GFR (MDRD) 50 L (>89) Glucose 117 H (70-100) mg/dL POC Whole Bld Glucose 123 H (70 - 100) mg/dL Calcium 7.9 L (8.5-10.3) mg/dL Phosphorus 4.3 (2.5-4.6) mg/dL Magnesium 2.5 (1.7-2.8) mg/dL Total Creatine Kinase 585 H (22-269) IU/L Triglycerides ( - 149) mg/dL Cholesterol ( - 199) mg/dL LDL Cholesterol, Calc ( - 129) mg/dL VLDL Cholesterol mg/dL HDL Cholesterol (60 - ) mg/dL LDL/HDL Ratio (<4.4) Cholesterol/HDL Ratio (<4.4) Blood Type 02/06/20 02/06/20 02/06/20 Range/Units 23:14 21:00 18:27 WBC (4.8-10.8) x10^3/uL RBC (4.20-5.40) 10^6/uL Hgb (12.0-16.0) g/dL Hct (37.0-47.0) % MCV (81.0-99.0) fL MCH (27.0-31.0) pg MCHC (32.0-36.0) g/dL RDW (12.0-15.0) % Plt Count (130-450) 10^3/uL MPV (7.9-10.8) fL Neut # (Auto) (1.5-6.6) 10^3/uL Lymph # (Auto) (1.5-3.5) 10^3/uL [place] # (Auto) (0.0-1.0) 10^3/uL Eos # (Auto) (0.0-0.7) 10^3/uL Baso # (Auto) (0.0-0.1) 10^3/uL Absolute Nucleated RBC x10^3/uL Nucleated RBC % /100WBC Bld Gas Analysis Time 0708 2106 Sample Site A-LINE A-LINE ABG pH 7.40 7.40 (7.35-7.45) ABG pCO2 42 43 (34-45) mmHg ABG pO2 121 H 73 L (80-100) mmHg ABG HCO3 25.7 26.0 (22.0-26.0) mmol/L ABG Total CO2 27.0 27.3 (21.0-29.0) MMOL/L ABG O2 Saturation 98 94 (94-98) % ABG Base Excess 0.8 1.0 (-2.0-3.0) mmol/L Kelvin Test NOT APPLICABLE NOT APPLICABLE Respiration Rate 18 18 b/min O2 Delivery Device VENTILATOR VENTILATOR O2 Liters/Min LPM Vent Mode ASSIST/CONTROL ASSIST/CONTROL FiO2 80.00 50.00 Tidal Volume 470 470 mL PEEP 12 10 cmH2O Sodium (135-145) mmol/L Potassium (3.5-5.0) mmol/L Chloride (101-111) mmol/L Carbon Dioxide (21-32) mmol/L Anion Gap (6-13) BUN (6-20) mg/dL Creatinine (0.4-1.0) mg/dL Estimated GFR (MDRD) (>89) Glucose (70-100) mg/dL POC Whole Bld Glucose 99 (70 - 100) mg/dL Calcium (8.5-10.3) mg/dL Phosphorus (2.5-4.6) mg/dL Magnesium (1.7-2.8) mg/dL Total Creatine Kinase (22-269) IU/L Triglycerides ( - 149) mg/dL Cholesterol ( - 199) mg/dL LDL Cholesterol, Calc ( - 129) mg/dL VLDL Cholesterol mg/dL HDL Cholesterol (60 - ) mg/dL LDL/HDL Ratio (<4.4) Cholesterol/HDL Ratio (<4.4) Blood Type 02/06/20 02/06/20 Range/Units 12:26 09:13 WBC (4.8-10.8) x10^3/uL RBC (4.20-5.40) 10^6/uL Hgb (12.0-16.0) g/dL Hct (37.0-47.0) % MCV (81.0-99.0) fL MCH (27.0-31.0) pg MCHC (32.0-36.0) g/dL RDW (12.0-15.0) % Plt Count (130-450) 10^3/uL MPV (7.9-10.8) fL Neut # (Auto) (1.5-6.6) 10^3/uL Lymph # (Auto) (1.5-3.5) 10^3/uL [place] # (Auto) (0.0-1.0) 10^3/uL Eos # (Auto) (0.0-0.7) 10^3/uL Baso # (Auto) (0.0-0.1) 10^3/uL Absolute Nucleated RBC x10^3/uL Nucleated RBC % /100WBC Bld Gas Analysis Time 0917 Sample Site RIGHT RADIAL ABG pH 7.35 (7.35-7.45) ABG pCO2 49 H (34-45) mmHg ABG pO2 129 H (80-100) mmHg ABG HCO3 26.5 H (22.0-26.0) mmol/L ABG Total CO2 28.0 (21.0-29.0) MMOL/L ABG O2 Saturation 98 (94-98) % ABG Base Excess 0.6 (-2.0-3.0) mmol/L Kelvin Test POSITIVE Respiration Rate 18 b/min O2 Delivery Device VENTILATOR O2 Liters/Min 70.00 LPM Vent Mode ASSIST/CONTROL FiO2 Tidal Volume 470 mL PEEP 10 cmH2O Sodium (135-145) mmol/L Potassium (3.5-5.0) mmol/L Chloride (101-111) mmol/L Carbon Dioxide (21-32) mmol/L Anion Gap (6-13) BUN (6-20) mg/dL Creatinine (0.4-1.0) mg/dL Estimated GFR (MDRD) (>89) Glucose (70-100) mg/dL POC Whole Bld Glucose 137 H (70 - 100) mg/dL Calcium (8.5-10.3) mg/dL Phosphorus (2.5-4.6) mg/dL Magnesium (1.7-2.8) mg/dL Total Creatine Kinase (22-269) IU/L Triglycerides ( - 149) mg/dL Cholesterol ( - 199) mg/dL LDL Cholesterol, Calc ( - 129) mg/dL VLDL Cholesterol mg/dL HDL Cholesterol (60 - ) mg/dL LDL/HDL Ratio (<4.4) Cholesterol/HDL Ratio (<4.4) Blood Type Assessment/Plan - Problem List (1) ARDS (adult respiratory distress syndrome) Impression: This is secondary to the novel coronavirus and pneumonia. Decision was made to prone the patient yesterday afternoon given she has not improved from a respiratory standpoint. This morning, her ABG showed a PO2 of 115 on FiO2 50% with a PEEP of 12. We will plan to place her in the supine position this morning. We will repeat a chest x-ray after this is completed. We will attempt to wean her PEEP down to 10 before further decreasing her FiO2 from 50%. If her hypoxia does not improve, she may need to be prone again in the afternoon. She is ready completed her course of vancomycin and azithromycin. Today's last day of Zosyn IV. Continue with vent management as per protocol for ARDS. Protonix IV for GI prophylaxis. Continue sedation with fentanyl and propofol. We will check CK and triglycerides this morning given she has been on propofol for a few days. If propofol needs to be discontinued, we will likely switch her to Versed. Her overall prognosis remains guarded at this time. (2) Pneumonia due to 2019 novel coronavirus Impression: The etiology of her acute hypoxic respiratory failure and ARDS. She does have a history of CLL and is immunocompromise she was actively receiving treatment prior to her admission. She has already been treated with IV antibiotics including vancomycin and azithromycin. Today the last day of Zosyn. She is ready completed treatment with Plaquenil. Continue with supportive care as mentioned above. (3) Hypotension Impression: Yesterday she was switched to norepinephrine from dopamine given her persistent hypotension. It is thought this is secondary to her sedation as well as sepsis. She is requiring norepinephrine at 14mcg. We will hold off on administering further IV fluids given she is nearly 15 L net positive since admission. She also does show some edema that is most prominent in her face at the moment. We will need to diurese her at some point although I would like to see her pressor requirements decrease before starting her on IV diuretics. We will continue with norepinephrine to maintain mean arterial pressure greater than 65 mmHg. At times she does have a wide pulse pressure and we may ultimately need to titrate pressors based off of her systolic pressure if this persists. Will check an ech ocardiogram. (4) JANICE (acute kidney injury) Impression: Her renal function is back to baseline as her creatinine is now 1.1. It did peak at 1.6. This is likely multifactorial from ATN given her hypotension as well as a combination of vancomycin and Zosyn given she did have an elevated trough level. Continue to monitor her renal function and urine output. She will to be diuresed at some point given her significant positive fluid balance (5) Anemia Impression: This anemia is likely secondary to her critical illness as well as frequent lab draws. Hemoglobin has improved to 8.8 this morning from 8.1 yesterday. There are no signs of bleeding. A type and screen has been obtained. We will hold off on transfusion as hemoglobin drops to 7. Lovenox for DVT prophylaxis. We will check iron studies. Will check liver panel as well as if her bilirubin is elevated, we will consider hemolysis as differential. (6) Thrombocytosis Impression: Her platelets have been slowly increasing and are now elevated at 728. Suspect this is likely reactive given her infection. We will check iron studies to rule out iron deficiency anemia. We will also check LFTs as if her bilirubin is elevated, will need to consider hemolysis. Continue to trend CBC. (7) CLL (chronic lymphocytic leukemia) Impression: She has a history of CLL and was receiving treatment prior to this admission. She is immunocompromised given this diagnosis and active treatment. She will continue follow-up on an outpatient basis after this hospitalization. (8) Hypothyroidism Impression: Continue Synthroid via NG tube. (9) Moderate protein-calorie malnutrition Impression: Continue tube feeds as tolerated.
[2020-02-07] MEDS: ENOXAPARIN 40 MG/0.4 ML SYRINGE SUBQ SCH (09:13)
[2020-02-07] MEDS: PANTOPRAZOLE 40 MG VIAL IVP SCH (09:13)
[2020-02-07] MEDS: CHLORHEXIDINE GLUCONATE 15 ML UDC PO SCH ×2 (09:51→20:22)
--- NOTE | 2020-02-07 10:35 | XRAY Report ---
Reason: HYPOXIA, INTUBATED. COVID+ Procedure Date: 02/07/2020 Accession Number: [id number] / [id number] Procedure: XR - Chest 1 View X-Ray CPT Code: 03071 Final Report FULL RESULT: EXAM: CHEST RADIOGRAPHY EXAM DATE: 02/07/2020 09:17 AM. CLINICAL HISTORY: HYPOXIA, INTUBATED. COVID+. COMPARISON: CHEST 1 VIEW 02/05/2020 4:02 PM. TECHNIQUE: 1 view. FINDINGS: Lungs/Pleura: Diffuse patchy bilateral pulmonary opacities, increased at the perihilar left upper lung, somewhat decreased at the right upper lung. Slightly improved pulmonary volumes. Left pleural effusion has largely resolved. No detectable pneumothorax. Mediastinum: Within exam limitations, the cardiomediastinal contour is normal. Other: ET tube 42 mm above the jacoby. Enteric tube terminates below diaphragm, tip excluded from the [id number]. Right IJ catheter tip in the region of the right brachiocephalic vein. IMPRESSION: 1. ET tube 4.2 cm above the jacoby. Support tubes as otherwise noted above. 2. Patchy diffuse bilateral pulmonary opacities persist, somewhat decreased at the right upper lung, increased at the perihilar left upper lung. 3. Left pleural effusion has largely resolved. RADIA
[2020-02-07 10:58] LABS: ABG BASE EXCESS -0.6 mmol/L (-2.0-3.0); ABG OXYGEN SATURATION 97 % (94-98); ABG PCO2 46 mmHg (34-45); ABG PH 7.36 (7.35-7.45); ABG PO2 113 mmHg (80-100); ABG TCO2 26.4 MMOL/L (21.0-29.0)
[2020-02-07] MEDS: PROPOFOL 500 MG/50 ML 500 MG/50 ML VIAL IV SCH ×7 (12:00→23:25)
[2020-02-07 14:31] LABS: CALCIUM 7.9 mg/dL (8.5-10.3); CREATININE 1.3 mg/dL (0.4-1.0)
--- NOTE | 2020-02-07 14:41 | XRAY Report ---
Reason: check tubes Procedure Date: 02/07/2020 Accession Number: [id number] / [id number] Procedure: XR - Chest 1 View X-Ray CPT Code: 33791 Final Report FULL RESULT: EXAM: CHEST RADIOGRAPHY EXAM DATE: 02/07/2020 02:31 PM. CLINICAL HISTORY: Check tubes. COMPARISON: CHEST 1 VIEW 02/07/2020 9:17 AM. TECHNIQUE: 1 view. FINDINGS: Lungs/Pleura: Diffuse patchy bilateral pulmonary opacities are similar to prior. No significant pleural effusion or evidence of pneumothorax. Mediastinum: Within exam limitations, the cardiomediastinal contour is normal. Other: ET tube 4.3 cm above the jacoby. Enteric tube terminates in the proximal stomach, side port near the EG junction. Right IJ catheter terminates in the region of the proximal right brachiocephalic vein or distal IJ vein.. IMPRESSION: 1. ET tube 4.3 cm above the jacoby. Right IJ catheter terminates in the region of the proximal right brachiocephalic vein or distal IJ vein. Support tubes as otherwise noted above. 2. Diffuse patchy bilateral pulmonary opacities similar to prior. RADIA
[2020-02-07] MEDS ORDERED: SODIUM CHLORIDE FLUSH 0.9% 10 ML SYRINGE IVP PRN (17:37)
--- NOTE | 2020-02-07 18:59 | XRAY Report ---
Reason: check tube placement (NG) Procedure Date: 02/07/2020 Accession Number: [id number] / [id number] Procedure: XR - Chest 1 View X-Ray CPT Code: 35849 Final Report FULL RESULT: EXAM: CHEST RADIOGRAPHY EXAM DATE: 02/07/2020 05:52 PM. CLINICAL HISTORY: Check tube placement (NG). COMPARISON: None. TECHNIQUE: 1 view. FINDINGS: Lungs/Pleura: Lung bases show persistent abnormal pulmonary opacities. Mediastinum: Within exam limitations, the cardiomediastinal contour is normal. Other: Enteric tube is seen in the proximal stomach. Nonspecific abdominal bowel gas pattern. IMPRESSION: 1. Enteric tube is seen in the proximal stomach. RADIA
[2020-02-08] MEDS: PROPOFOL 500 MG/50 ML 500 MG/50 ML VIAL IV SCH ×4 (03:40→08:05)
[2020-02-08] MEDS: fentaNYL 2,500 MCG in SODIUM CHLORIDE 0.9% 200 ML IV SCH ×2 (05:26→22:05)
[2020-02-08 05:40] LABS: ABG BASE EXCESS -1.7 mmol/L (-2.0-3.0); ABG HCO3 23.2 mmol/L (22.0-26.0); ABG OXYGEN SATURATION 98 % (94-98); ABG PCO2 40 mmHg (34-45); ABG PH 7.38 (7.35-7.45); ABG PO2 120 mmHg (80-100); ABG TCO2 24.5 MMOL/L (21.0-29.0)
[2020-02-08 06:02] LABS: BASOPHILS # (AUTO) 0.1 10^3/uL (0.0-0.1); BASOPHILS % (AUTO) 0.6 %; EOSINOPHILS # (AUTO) 0.6 10^3/uL (0.0-0.7); EOSINOPHILS % (AUTO) 5.3 %; LYMPHOCYTES # (AUTO) 2.6 10^3/uL (1.5-3.5); LYMPHOCYTES % (AUTO) 23.9 %; MEAN CORPUSCULAR HEMOGLOBIN 27.6 pg (27.0-31.0); MEAN CORPUSCULAR HGB CONC 29.2 g/dL (32.0-36.0); MEAN CORPUSCULAR VOLUME 94.5 fL (81.0-99.0); MEAN PLATELET VOLUME 9.6 fL (7.9-10.8); MONOCYTES # (AUTO) 0.9 10^3/uL (0.0-1.0); MONOCYTES % (AUTO) 8.3 %; NEUTROPHILS # (AUTO) 6.6 10^3/uL (1.5-6.6); PLT - PLATELET COUNT 513 10^3/uL (130-450); RED CELL DISTRIBUTION WIDTH 15.5 % (12.0-15.0); WHITE BLOOD COUNT 10.8 x10^3/uL (4.8-10.8)
[2020-02-08] MEDS: LEVOTHYROXINE 125 MCG TABLET NG SCH (06:26)
[2020-02-08 06:29] LABS: ALBUMIN 1.9 g/dL (3.2-5.5); BILIRUBIN,DIRECT 0.1 mg/dL (0.1-0.5); BILIRUBIN,TOTAL 0.5 mg/dL (0.2-1.0); CALCIUM 7.9 mg/dL (8.5-10.3); CREATININE 1.3 mg/dL (0.4-1.0); PHOSPHORUS 4.6 mg/dL (2.5-4.6); TOTAL PROTEIN 5.2 g/dL (6.7-8.2)
[2020-02-08 06:48] LABS: MAGNESIUM 2.7 mg/dL (1.7-2.8)
[2020-02-08] MEDS: CHLORHEXIDINE GLUCONATE 15 ML UDC PO SCH ×2 (08:13→19:59)
[2020-02-08] MEDS: ENOXAPARIN 40 MG/0.4 ML SYRINGE SUBQ SCH (08:13)
[2020-02-08] MEDS: SODIUM CHLORIDE FLUSH 0.9% 10 ML SYRINGE IVP SCH ×2 (08:13→16:38)
[2020-02-08] MEDS: DEXMEDETOMIDINE 400 MCG/100 ML 100 ML IV SCH ×4 (08:40→20:40)
--- NOTE | 2020-02-08 10:42 | PROVIDER PROGRESS NOTE ---
Subjective - Prog Note Date Prog Note Date: 02/08/20 Prog Note Time: 10:40 - Subjective Subjective: Pt inubated, sedated, unable to respond Current Medications - Current Medications Current Medications: Current Medications Generic Name Dose Route Start Last Admin Trade Name Freq PRN Reason Stop Dose Admin Chlorhexidine Gluconate 15 ml 02/01/20 21:00 02/08/20 08:13 Peridex PO 15 ml BID CORONA Administration Enoxaparin Sodium 40 mg 01/30/20 09:00 02/08/20 08:13 Lovenox SUBQ 40 mg DAILY CORONA Administration Fentanyl 2,500 mcg/ Sodium 250 mls @ 11.85 mls/hr 02/02/20 11:00 02/08/20 10:27 Chloride IV 0 mcg/kg/hr .Q21H6M CORONA 0 mls/hr Titration Protocol 1 MCG/KG/HR Propofol 500 mg in 50 mls @ 28.44 mls/hr 02/07/20 12:00 02/08/20 08:10 Diprivan IV 0 mcg/kg/min .Q1H46M CORONA 0 mls/hr Titration Protocol 40 MCG/KG/MIN Norepinephrine Bitartrate 8 mg 250 mls @ 30 mls/hr 02/07/20 13:30 02/08/20 10:18 / Dextrose IV 1 mcg/min .Q8H20M CORONA 1.88 mls/hr Titration Protocol 16 MCG/MIN Dexmedetomidine/Sodium Chloride 100 mls @ 6.75 mls/hr 02/08/20 09:00 02/08/20 08:50 Precedex Premix IV 0.4 mcg/kg/hr .[id number] CORONA 13.5 mls/hr Titration Protocol 0.2 MCG/KG/HR Levothyroxine Sodium 125 mcg 02/07/20 07:00 02/08/20 06:26 Synthroid NG 125 mcg QDAC CORONA Administration Pantoprazole Sodium 40 mg 02/06/20 09:00 02/07/20 09:13 Protonix IVP 40 mg DAILY CORONA Administration Sodium Chloride 10 ml 02/01/20 01:00 02/08/20 08:13 Normal Saline Flush 0.9% IVP 10 ml 0100,0900,1700 CORONA Administration Sodium Chloride 10 ml 01/31/20 17:29 02/06/20 05:53 Normal Saline Flush 0.9% IVP 10 ml PRN PRN Administration NEEDED PER PROVIDER ORDERS Sodium Chloride 20 ml 02/07/20 17:37 02/07/20 17:40 Normal Saline Flush 0.9% IVP 20 ml PRN PRN Administration After Blood Draw Objective - Vital Signs/Intake & Output Reviewed Vital Signs: Yes Vital Signs: Vital Signs Temp Pulse Pulse Resp BP BP Pulse Ox 02/08/20 10:16 120/64 02/08/20 10:00 37 C 79 18 85/51 L 74/40 L 93 02/08/20 09:19 101 H 02/08/20 09:00 110 H 16 144/75 H 145/75 H 95 02/08/20 08:00 37.3 C 85 16 96/56 L 108/59 L 98 02/08/20 07:49 84 02/08/20 07:00 86 18 97/60 97 Intake & Output: Intake & Output 02/05/20 02/06/20 02/07/20 02/08/20 23:59 23:59 23:59 23:59 Intake Total 3674.834 2924.137 3064.657 593.461 Output Total 1935 2288 2075 722 Balance 1739.834 636.137 989.657 -128.539 - Objective General Appearance: positive: Other (sedated, moderately edematous) Eyes Bilateral: positive: Other (some spontaneous eye opening) ENT: positive: Dry mucous membranes Neck: positive: Other (RIJ in place, normal neck otherwise) Respiratory: positive: Other (breath sounds diminished bilaterally) Cardiovascular: positive: Regular rate & rhythm, No murmur, No gallop Peripheral Pulses: 2+ Radial (R), 2+ Radial (L) Abdomen: positive: Non-tender. negative: Abnml bowel sounds Skin: positive: Color nml Extremities: positive: Pedal edema Neurologic/Psychiatric: positive: Other (sedated - no response to commands) - Lab Results Fish Bones: 02/08/20 05:30 02/08/20 05:30 Other Labs: Lab Results x24hrs 02/08/20 02/08/20 02/08/20 Range/Units 05:30 05:30 05:30 WBC 10.8 (4.8-10.8) x10^3/uL RBC 2.90 L (4.20-5.40) 10^6/uL Hgb 8.0 L (12.0-16.0) g/dL Hct 27.4 L (37.0-47.0) % MCV 94.5 (81.0-99.0) fL MCH 27.6 (27.0-31.0) pg MCHC 29.2 L (32.0-36.0) g/dL RDW 15.5 H (12.0-15.0) % Plt Count 513 H (130-450) 10^3/uL MPV 9.6 (7.9-10.8) fL Neut # (Auto) 6.6 (1.5-6.6) 10^3/uL Lymph # (Auto) 2.6 (1.5-3.5) 10^3/uL Ransom # (Auto) 0.9 (0.0-1.0) 10^3/uL Eos # (Auto) 0.6 (0.0-0.7) 10^3/uL Baso # (Auto) 0.1 (0.0-0.1) 10^3/uL Absolute Nucleated RBC 0.00 x10^3/uL Nucleated RBC % 0.0 /100WBC Bld Gas Analysis Time Sample Site ABG pH (7.35-7.45) ABG pCO2 (34-45) mmHg ABG pO2 (80-100) mmHg ABG HCO3 (22.0-26.0) mmol/L ABG Total CO2 (21.0-29.0) MMOL/L ABG O2 Saturation (94-98) % ABG Base Excess (-2.0-3.0) mmol/L Kelvin Test Respiration Rate b/min O2 Delivery Device O2 Liters/Min Vent Mode FiO2 Tidal Volume mL PEEP cmH2O Sodium 139 (135-145) mmol/L Potassium 5.1 H (3.5-5.0) mmol/L Chloride 106 (101-111) mmol/L Carbon Dioxide 26 (21-32) mmol/L Anion Gap 7.0 (6-13) BUN 28 H (6-20) mg/dL Creatinine 1.3 H (0.4-1.0) mg/dL Estimated GFR (MDRD) 42 L (>89) Glucose 120 H (70-100) mg/dL POC Whole Bld Glucose (70 - 100) mg/dL Calcium 7.9 L (8.5-10.3) mg/dL Phosphorus 4.6 (2.5-4.6) mg/dL Magnesium 2.7 (1.7-2.8) mg/dL Iron 34 (28-170) ug/dL TIBC 183 L (250-450) ug/dL % Saturation 19 L (20-50) % Transferrin 131 L (192-382) mg/dL Ferritin 96.2 (11.0-306.8) ng/mL Total Bilirubin 0.5 (0.2-1.0) mg/dL Direct Bilirubin 0.1 (0.1-0.5) mg/dL AST 26 (10-42) IU/L ALT 17 (10-60) IU/L Alkaline Phosphatase 58 (42-121) IU/L Total Protein 5.2 L (6.7-8.2) g/dL Albumin 1.9 L (3.2-5.5) g/dL Globulin 3.3 (2.1-4.2) g/dL 02/08/20 02/08/20 02/08/20 Range/Units 05:28 05:25 00:10 WBC (4.8-10.8) x10^3/uL RBC (4.20-5.40) 10^6/uL Hgb (12.0-16.0) g/dL Hct (37.0-47.0) % MCV (81.0-99.0) fL MCH (27.0-31.0) pg MCHC (32.0-36.0) g/dL RDW (12.0-15.0) % Plt Count (130-450) 10^3/uL MPV (7.9-10.8) fL Neut # (Auto) (1.5-6.6) 10^3/uL Lymph # (Auto) (1.5-3.5) 10^3/uL Ransom # (Auto) (0.0-1.0) 10^3/uL Eos # (Auto) (0.0-0.7) 10^3/uL Baso # (Auto) (0.0-0.1) 10^3/uL Absolute Nucleated RBC x10^3/uL Nucleated RBC % /100WBC Bld Gas Analysis Time 0535 Sample Site A-LINE ABG pH 7.38 (7.35-7.45) ABG pCO2 40 (34-45) mmHg ABG pO2 120 H (80-100) mmHg ABG HCO3 23.2 (22.0-26.0) mmol/L ABG Total CO2 24.5 (21.0-29.0) MMOL/L ABG O2 Saturation 98 (94-98) % ABG Base Excess -1.7 (-2.0-3.0) mmol/L Kelvin Test NOT APPLICABLE Respiration Rate 18 b/min O2 Delivery Device VENTILATOR O2 Liters/Min Vent Mode ASSIST/CONTROL FiO2 35.00 Tidal Volume 470 mL PEEP 10 cmH2O Sodium (135-145) mmol/L Potassium (3.5-5.0) mmol/L Chloride (101-111) mmol/L Carbon Dioxide (21-32) mmol/L Anion Gap (6-13) BUN (6-20) mg/dL Creatinine (0.4-1.0) mg/dL Estimated GFR (MDRD) (>89) Glucose (70-100) mg/dL POC Whole Bld Glucose 111 H 105 H (70 - 100) mg/dL Calcium (8.5-10.3) mg/dL Phosphorus (2.5-4.6) mg/dL Magnesium (1.7-2.8) mg/dL Iron (28-170) ug/dL TIBC (250-450) ug/dL % Saturation (20-50) % Transferrin (192-382) mg/dL Ferritin (11.0-306.8) ng/mL Total Bilirubin (0.2-1.0) mg/dL Direct Bilirubin (0.1-0.5) mg/dL AST (10-42) IU/L ALT (10-60) IU/L Alkaline Phosphatase (42-121) IU/L Total Protein (6.7-8.2) g/dL Albumin (3.2-5.5) g/dL Globulin (2.1-4.2) g/dL 02/07/20 02/07/20 02/07/20 Range/Units 17:22 14:09 11:55 WBC (4.8-10.8) x10^3/uL RBC (4.20-5.40) 10^6/uL Hgb (12.0-16.0) g/dL Hct (37.0-47.0) % MCV (81.0-99.0) fL MCH (27.0-31.0) pg MCHC (32.0-36.0) g/dL RDW (12.0-15.0) % Plt Count (130-450) 10^3/uL MPV (7.9-10.8) fL Neut # (Auto) (1.5-6.6) 10^3/uL Lymph # (Auto) (1.5-3.5) 10^3/uL Ransom # (Auto) (0.0-1.0) 10^3/uL Eos # (Auto) (0.0-0.7) 10^3/uL Baso # (Auto) (0.0-0.1) 10^3/uL Absolute Nucleated RBC x10^3/uL Nucleated RBC % /100WBC Bld Gas Analysis Time Sample Site ABG pH (7.35-7.45) ABG pCO2 (34-45) mmHg ABG pO2 (80-100) mmHg ABG HCO3 (22.0-26.0) mmol/L ABG Total CO2 (21.0-29.0) MMOL/L ABG O2 Saturation (94-98) % ABG Base Excess (-2.0-3.0) mmol/L Kelvin Test Respiration Rate b/min O2 Delivery Device O2 Liters/Min Vent Mode FiO2 Tidal Volume mL PEEP cmH2O Sodium 138 (135-145) mmol/L Potassium 4.9 (3.5-5.0) mmol/L Chloride 107 (101-111) mmol/L Carbon Dioxide 24 (21-32) mmol/L Anion Gap 7.0 (6-13) BUN 27 H (6-20) mg/dL Creatinine 1.3 H (0.4-1.0) mg/dL Estimated GFR (MDRD) 42 L (>89) Glucose 106 H (70-100) mg/dL POC Whole Bld Glucose 88 94 (70 - 100) mg/dL Calcium 7.9 L (8.5-10.3) mg/dL Phosphorus (2.5-4.6) mg/dL Magnesium (1.7-2.8) mg/dL Iron (28-170) ug/dL TIBC (250-450) ug/dL % Saturation (20-50) % Transferrin (192-382) mg/dL Ferritin (11.0-306.8) ng/mL Total Bilirubin (0.2-1.0) mg/dL Direct Bilirubin (0.1-0.5) mg/dL AST (10-42) IU/L ALT (10-60) IU/L Alkaline Phosphatase (42-121) IU/L Total Protein (6.7-8.2) g/dL Albumin (3.2-5.5) g/dL Globulin (2.1-4.2) g/dL 02/07/20 Range/Units 10:45 WBC (4.8-10.8) x10^3/uL RBC (4.20-5.40) 10^6/uL Hgb (12.0-16.0) g/dL Hct (37.0-47.0) % MCV (81.0-99.0) fL MCH (27.0-31.0) pg MCHC (32.0-36.0) g/dL RDW (12.0-15.0) % Plt Count (130-450) 10^3/uL MPV (7.9-10.8) fL Neut # (Auto) (1.5-6.6) 10^3/uL Lymph # (Auto) (1.5-3.5) 10^3/uL Ransom # (Auto) (0.0-1.0) 10^3/uL Eos # (Auto) (0.0-0.7) 10^3/uL Baso # (Auto) (0.0-0.1) 10^3/uL Absolute Nucleated RBC x10^3/uL Nucleated RBC % /100WBC Bld Gas Analysis Time 1040 Sample Site A-LINE ABG pH 7.36 (7.35-7.45) ABG pCO2 46 H (34-45) mmHg ABG pO2 113 H (80-100) mmHg ABG HCO3 25.0 (22.0-26.0) mmol/L ABG Total CO2 26.4 (21.0-29.0) MMOL/L ABG O2 Saturation 97 (94-98) % ABG Base Excess -0.6 (-2.0-3.0) mmol/L Kelvin Test NOT APPLICABLE Respiration Rate 18 b/min O2 Delivery Device VENTILATOR O2 Liters/Min LEGAL REFEREE Vent Mode ASSIST/CONTROL FiO2 Tidal Volume 470 mL PEEP 12 cmH2O Sodium (135-145) mmol/L Potassium (3.5-5.0) mmol/L Chloride (101-111) mmol/L Carbon Dioxide (21-32) mmol/L Anion Gap (6-13) BUN (6-20) mg/dL Creatinine (0.4-1.0) mg/dL Estimated GFR (MDRD) (>89) Glucose (70-100) mg/dL POC Whole Bld Glucose (70 - 100) mg/dL Calcium (8.5-10.3) mg/dL Phosphorus (2.5-4.6) mg/dL Magnesium (1.7-2.8) mg/dL Iron (28-170) ug/dL TIBC (250-450) ug/dL % Saturation (20-50) % Transferrin (192-382) mg/dL Ferritin (11.0-306.8) ng/mL Total Bilirubin (0.2-1.0) mg/dL Direct Bilirubin (0.1-0.5) mg/dL AST (10-42) IU/L ALT (10-60) IU/L Alkaline Phosphatase (42-121) IU/L Total Protein (6.7-8.2) g/dL Albumin (3.2-5.5) g/dL Globulin (2.1-4.2) g/dL - Diagnostic Imaging Diagnostic Imaging Results: positive: Final report reviewed Assessment/Plan - Problem List (1) Pneumonia due to 2019 novel coronavirus Impression: The etiology of her acute hypoxic respiratory failure and ARDS. She does have a history of CLL and is immunocompromised state, and she was actively receiving treatment prior to her admission. She has already been treated with IV antibiotics including vancomycin and azithromycin. Completed Zosyn and Plaquenil. Has improved respiratory status, on PEEP of 6 at 50% FiO2 today. Trial of sedation holiday resulted in agitation, so added Precedex. Discussed with nursing and RT - plan for possible extubation today, if able to wean off sedation. (2) ARDS (adult respiratory distress syndrome) Impression: 2/2 to COVID-19 syndrome. Improving. As above, completed emperic abx and Plaquenil. Cont supportive care. Plan for possible extubation later today if able to tolerated wean off sedation (propofol stopped this am) (3) Hypotension Impression: Improving. On low dose levophed, down to 2 mcg. Cont attempt to wean off. Qualifiers: Hypotension type: hypotension due to drug Qualified Code(s): I95.2 - Hypotension due to drugs (4) Moderate protein-calorie malnutrition Impression: Appreciated nutrition consult Cont tube feeds as tolerated (tube placement confirmed by xray evening of 02/06) (5) Thrombocytosis Impression: improving (6) CLL (chronic lymphocytic leukemia) Impression: Relatively stable, slow decrease in cell counts (7) Hypothyroidism Impression: Stable Cont levothyroxine IV (8) Anemia Impression: 2/2 to CLL, in setting of ARDS Cont to monitor H&H slowly trending down, but no indication for transfusion. Qualifiers: Anemia type: due to chronic kidney disease (9) JANICE (acute kidney injury) Impression: Stable, cont supportive care
[2020-02-08] MEDS ORDERED: PROPOFOL 200 MG/20 ML VIAL IVP ONE (13:41)
[2020-02-08] MEDS: PANTOPRAZOLE 40 MG VIAL IVP SCH (23:10)
[2020-02-09] MEDS: DEXMEDETOMIDINE 400 MCG/100 ML 100 ML IV SCH ×2 (00:15→10:20)
[2020-02-09] MEDS: PROPOFOL 500 MG/50 ML 500 MG/50 ML VIAL IV SCH ×14 (01:13→17:04)
[2020-02-09] MEDS: SODIUM CHLORIDE FLUSH 0.9% 10 ML SYRINGE IVP SCH ×3 (04:29→17:29)
[2020-02-09] MEDS: LEVOTHYROXINE 125 MCG TABLET NG SCH (06:37)
[2020-02-09 06:43] LABS: BASOPHILS # (AUTO) 0.1 10^3/uL (0.0-0.1); BASOPHILS % (AUTO) 0.8 %; EOSINOPHILS # (AUTO) 0.4 10^3/uL (0.0-0.7); EOSINOPHILS % (AUTO) 3.3 %; HGB - HEMOGLOBIN 7.7 g/dL (12.0-16.0); LYMPHOCYTES # (AUTO) 2.9 10^3/uL (1.5-3.5); LYMPHOCYTES % (AUTO) 24.3 %; MEAN CORPUSCULAR HGB CONC 29.3 g/dL (32.0-36.0); MEAN CORPUSCULAR VOLUME 95.6 fL (81.0-99.0); MEAN PLATELET VOLUME 9.8 fL (7.9-10.8); MONOCYTES # (AUTO) 0.9 10^3/uL (0.0-1.0); MONOCYTES % (AUTO) 7.3 %; NEUTROPHILS # (AUTO) 7.5 10^3/uL (1.5-6.6); NEUTROPHILS % (AUTO) 63.1 %; PLT - PLATELET COUNT 470 10^3/uL (130-450); RED BLOOD COUNT 2.75 10^6/uL (4.20-5.40); RED CELL DISTRIBUTION WIDTH 15.2 % (12.0-15.0); WHITE BLOOD COUNT 11.8 x10^3/uL (4.8-10.8)
[2020-02-09 06:51] LABS: CREATININE 1.2 mg/dL (0.4-1.0)
[2020-02-09 07:01] LABS: ALBUMIN 1.9 g/dL (3.2-5.5); PHOSPHORUS 3.2 mg/dL (2.5-4.6)
[2020-02-09] MEDS: CHLORHEXIDINE GLUCONATE 15 ML UDC PO SCH ×2 (09:10→20:32)
[2020-02-09] MEDS: ENOXAPARIN 40 MG/0.4 ML SYRINGE SUBQ SCH (09:10)
[2020-02-09] MEDS: PANTOPRAZOLE 40 MG VIAL IVP SCH (10:06)
[2020-02-09] MEDS ORDERED: HALOPERIDOL 5 MG/ML VIAL IVP PRN (10:10)
--- NOTE | 2020-02-09 12:38 | PROVIDER PROGRESS NOTE ---
Subjective - Prog Note Date Prog Note Date: 02/09/20 Prog Note Time: 12:36 - Subjective Subjective: Patient is intubated and unable to provide subjective reports Current Medications - Current Medications Current Medications: Medications Summary Chlorhexidine Gluconate (Peridex) 15 ml PO BID [facility] Last Admin: 02/09/20 09:10 Dose: 15 ml Enoxaparin Sodium (Lovenox) 40 mg SUBQ DAILY [place] Last Admin: 02/09/20 09:10 Dose: 40 mg Subcutaneous Injection Site Document 02/09/20 09:10 CM (Rec: 02/09/20 09:10 CM [id number]) Site Subcutaneous Injection Site Left Abdomen Haloperidol (Haldol Inj) 1 mg IVP Q6H PRN PRN Reason: Agitation Last Admin: 02/09/20 10:56 Dose: 1 mg Fentanyl 2,500 mcg/ Sodium (Chloride) 250 mls @ 11.85 mls/hr IV .Q21H6M [facility]; Protocol Last Titration: 02/08/20 19:11 Dose: 1 mcg/kg/hr, 11.85 mls/hr Medication Titration Document 02/08/20 19:11 ROSA ISELA (Rec: 02/08/20 22:05 ROSA ISELA [id number]) Titration Intake Titration Intake 6.581 Cumulative Intake 250 Container Volume 0 Elapsed Time 5d 18h 12m Titration Dosing Titration Dose 1 IV Rate 11.85 Increase/Decrease Infused Cumulative Dose 84517 Total Intake (Rx) 3,463.3 Volume Adjustment/Waste 0 Propofol (Diprivan) 500 mg in 50 mls @ 28.44 mls/hr IV .Q1H46M [facility]; Protocol Last Titration: 02/09/20 12:02 Dose: 10 mcg/kg/min, 7.11 mls/hr Medication Titration Document 02/09/20 12:02 CM (Rec: 02/09/20 12:02 CM [id number]) Titration Intake Titration Intake 14.931 Cumulative Intake 14.931 Container Volume 35.069 Elapsed Time 28h 59m Titration Dosing Titration Dose 10 IV Rate 7.11 Increase/Decrease Decreased Cumulative Dose 5839.42 Total Intake (Rx) 583.942 Volume Adjustment/Waste 0 Norepinephrine Bitartrate 8 mg (/ Dextrose) 250 mls @ 30 mls/hr IV .Q8H20M [facility]; Protocol Last Titration: 02/09/20 10:13 Dose: 3 mcg/min, 5.63 mls/hr Medication Titration Document 02/09/20 10:13 CM (Rec: 02/09/20 10:13 CM [id number]) Titration Intake Titration Intake 0.5 Cumulative Intake 109.763 Container Volume 140.237 Elapsed Time 23h 9m Titration Dosing Titration Dose 3 IV Rate 5.63 Increase/Decrease Increased Cumulative Dose 11.5121 Total Intake (Rx) 359.763 Volume Adjustment/Waste 0 Dexmedetomidine/Sodium Chloride (Precedex Premix) 100 mls @ 6.75 mls/hr IV .Q1 4H49M [facility]; Protocol Stop: 02/09/20 13:29 Last Titration: 02/09/20 12:01 Dose: 1 mcg/kg/hr, 33.75 mls/hr Medication Titration Document 02/09/20 12:01 CM (Rec: 02/09/20 12:01 CM [id number]) Titration Intake Titration Intake 39.769 Cumulative Intake 39.769 Container Volume 60.231 Elapsed Time 21h 8m Titration Dosing Titration Dose 1 IV Rate 33.75 Increase/Decrease Increased Cumulative Dose 1916.28 Total Intake (Rx) 479.07 Volume Adjustment/Waste 0 Levothyroxine Sodium (Synthroid) 125 mcg NG QDAC [facility] Last Admin: 02/09/20 06:37 Dose: 125 mcg Ondansetron HCl (Zofran Inj) 4 mg IVP Q6HR PRN PRN Reason: Nausea / Vomiting Last Admin: 02/09/20 12:03 Dose: 4 mg Pantoprazole Sodium (Protonix) 40 mg IVP DAILY [facility] Last Admin: 02/09/20 10:06 Dose: 40 mg Sodium Chloride (Normal Saline Flush 0.9%) 10 ml IVP 0100,0900,1700 [facility] Last Admin: 02/09/20 09:11 Dose: 10 ml Sodium Chloride (Normal Saline Flush 0.9%) 10 ml IVP PRN PRN PRN Reason: NEEDED PER PROVIDER ORDERS Last Admin: 02/06/20 05:53 Dose: 10 ml Sodium Chloride (Normal Saline Flush 0.9%) 20 ml IVP PRN PRN PRN Reason: After Blood Draw Last Admin: 02/07/20 17:40 Dose: 20 ml Discontinued Medications Acetaminophen (Tylenol) 650 mg PO Q4HR PRN PRN Reason: Pain 1 to 4 Last Admin: 01/31/20 01:51 Dose: 650 mg Acetaminophen Assessment Document 01/31/20 01:51 [facility] (Rec: 01/31/20 01:51 [id number] Pain or Fever Assessment Pain Scale Used 0-10 Pain Intensity (0-10) 0 Fever Yes Re-Assess: Acetaminophen Effectiveness Document 01/31/20 02:51 [facility] (Rec: 01/31/20 04:46 AFS [id number]) Effect on Pain or Fever Effective/Ineffective Effective Azithromycin (Zithromax) 500 mg PO ONCE [facility] Stop: 01/30/20 11:00 Last Admin: 01/30/20 11:21 Dose: 500 mg Azithromycin (Zithromax) 250 mg PO DAILY [facility] Stop: 02/03/20 09:01 Last Admin: 02/03/20 08:16 Dose: 250 mg Duloxetine HCl (Cymbalta) 120 mg PO DAILY [facility] Last Admin: 02/01/20 08:45 Dose: 120 mg Famotidine (Pepcid) 20 mg PO BID [facility] Last Admin: 02/01/20 09:53 Dose: Not Given Non-Admin Reason: See Downtime Documentation Fentanyl (Fentanyl) 25 mcg IVP Q2HR PRN PRN Reason: PAIN Last Admin: 02/02/20 09:12 Dose: 25 mcg Pain Assessment Document 02/02/20 09:12 [facility] (Rec: 02/02/20 09:13 [id number] Pain Level Non-Numerical Pain Rating critical care pain level 3/4 Re-Assess: Pain Reassessment Document 02/02/20 09:42 [facility] (Rec: 02/02/20 13:51 [id number] Reassessment Pain Scale Used critical care pain scale Effective/Ineffective Effective Furosemide (Lasix Inj 20mg Vial) 20 mg IVP ONCE [facility] Stop: 02/03/20 09:19 Last Admin: 02/03/20 09:13 Dose: 20 mg Furosemide (Lasix Inj 20mg Vial) 20 mg IVP ONCE [facility] Stop: 02/04/20 10:58 Last Admin: 02/04/20 11:22 Dose: 20 mg Guaifenesin (Mucinex) 600 mg PO BID [facility] Last Admin: 02/05/20 20:27 Dose: 600 mg Hydroxychloroquine Sulfate (Plaquenil) 200 mg PO BID [facility] Stop: 01/30/20 21:01 Last Admin: 01/30/20 20:38 Dose: 200 mg Hydroxychloroquine Sulfate (Plaquenil) 200 mg PO DAILY [facility] Stop: 02/03/20 09:01 Last Admin: 02/01/20 08:35 Dose: 200 mg Hydroxychloroquine Sulfate (Plaquenil) 200 mg PO BID [facility] Stop: 02/04/20 09:01 Last Admin: 02/04/20 08:42 Dose: 200 mg Sodium Chloride (Normal Saline 0.9%) 1,000 mls @ 0 mls/hr IV .Q0M [facility] Stop: 01/29/20 10:06 Last Infusion: 01/29/20 10:51 Dose: 0 mls/hr Medication Titration Document 01/29/20 10:51 [place] (Rec: 01/29/20 10:51 [place] [id number]) Titration Intake Titration Intake 1,000 Cumulative Intake 1,000 Container Volume 0 Elapsed Time 46m Titration Dosing IV Rate 0 Increase/Decrease Infused Cumulative Dose Not Applicable Total Intake (Rx) 1,000 Volume Adjustment/Waste 0 Sodium Chloride (Normal Saline 0.9%) 1,000 mls @ 0 mls/hr IV .Q0M [facility] Stop: 01/29/20 10:07 Last Infusion: 01/29/20 14:00 Dose: 0 mls/hr Medication Titration Document 01/29/20 14:00 (Rec: 01/29/20 15:05 [id number]) Titration Intake Titration Intake 1,000 Cumulative Intake 1,000 Container Volume 0 Elapsed Time 3h 14m Titration Dosing IV Rate 0 Increase/Decrease Infused Cumulative Dose Not Applicable Total Intake (Rx) 1,000 Volume Adjustment/Waste 0 Acetaminophen (Ofirmev) 100 mls @ 400 mls/hr IV ONCE [facility] Stop: 01/29/20 10:20 Last Infusion: 01/29/20 10:46 Dose: 0 mls/hr Medication Titration Document 01/29/20 10:46 [place] (Rec: 01/29/20 10:46 [place] [id number]) Titration Intake Titration Intake 100 Cumulative Intake 100 Container Volume 0 Elapsed Time 19m Titration Dosing IV Rate 0 Increase/Decrease Infused Cumulative Dose 1000 Total Intake (Rx) 100 Volume Adjustment/Waste 0 Sodium Chloride (Normal Saline 0.9%) 1,000 mls @ 100 mls/hr IV .Q10H [facility] Last Infusion: 02/02/20 13:00 Dose: 0 mls/hr Medication Titration Document 02/02/20 13:00 CM (Rec: 02/02/20 16:52 CM [id number]) Titration Intake Titration Intake 886 Cumulative Intake 886 Container Volume 0 Elapsed Time 3d 18h 45m Titration Dosing IV Rate 0 Increase/Decrease Infused Cumulative Dose Not Applicable Total Intake (Rx) 9,131 Volume Adjustment/Waste 114 Levofloxacin (Levaquin 750 Mg/150 Ml) 750 mg in 150 mls @ 100 mls/hr IV DAILY [place] Stop: 02/02/20 10:29 Last Infusion: 01/31/20 11:00 Dose: 0 mls/hr Medication Titration Document 01/31/20 11:00 KF (Rec: 01/31/20 13:14 KF [id number]) Titration Intake Titration Intake 150 Cumulative Intake 150 Container Volume 0 Elapsed Time 4h 33m Titration Dosing IV Rate 0 Increase/Decrease Infused Cumulative Dose 2250 Total Intake (Rx) 450 Volume Adjustment/Waste 0 Dexmedetomidine/Sodium Chloride (Precedex Premix) 100 mls @ 5.783 mls/hr IV .[id number] [facility]; Protocol Stop: 02/02/20 12:59 Last Titration: 02/02/20 10:00 Dose: 0 mcg/kg/hr, 0 mls/hr Medication Titration Document 02/02/20 10:00 CM (Rec: 02/02/20 16:49 CM [id number]) Titration Intake Titration Intake 6.3 Cumulative Intake 6.3 Container Volume 0 Elapsed Time 33h 30m Titration Dosing Titration Dose 0 IV Rate 0 Increase/Decrease Infused Cumulative Dose 1576.824 Total Intake (Rx) 394.206 Volume Adjustment/Waste 93.7 Midazolam HCl (Versed Drip) 50 mg in 100 mls @ 9.253 mls/hr IV .[id number] [facility]; Protocol Last Titration: 02/02/20 10:00 Dose: 0 mg/kg/hr, 0 mls/hr Medication Titration Document 02/02/20 10:00 CM (Rec: 02/02/20 16:51 CM [id number]) Titration Intake Titration Intake 6 Cumulative Intake 6 Container Volume 0 Elapsed Time 36h 16m Titration Dosing Titration Dose 0 IV Rate 0 Increase/Decrease Infused Cumulative Dose 334.4235 Total Intake (Rx) 668.847 Volume Adjustment/Waste 94 Sodium Chloride (Normal Saline 0.9%) 500 mls @ 999 mls/hr IV ONCE ONE Stop: 01/31/20 20:47 Last Infusion: 01/31/20 21:43 Dose: 0 mls/hr Medication Titration Document 01/31/20 21:43 JPT (Rec: 01/31/20 21:43 JPT [id number]) Titration Intake Titration Intake 500 Cumulative Intake 500 Container Volume 0 Elapsed Time 1h 25m Titration Dosing IV Rate 0 Increase/Decrease Infused Cumulative Dose Not Applicable Total Intake (Rx) 500 Volume Adjustment/Waste 0 Norepinephrine Bitartrate 8 mg (/ Dextrose) 250 mls @ 15 mls/hr IV .[id number] [facility]; Protocol Last Titration: 02/01/20 17:57 Dose: 0 mcg/min, 0 mls/hr Medication Titration Document 02/01/20 17:57 MM (Rec: 02/04/20 10:41 MM [id number]) Titration Intake Titration Intake 0.305 Cumulative Intake 4 Container Volume 0 Elapsed Time 12h 23m Titration Dosing Titration Dose 0 IV Rate 0 Increase/Decrease Infused Cumulative Dose 1.102 Total Intake (Rx) 34.446 Volume Adjustment/Waste 246 Piperacillin Sod/Tazobactam (Sod 3.375 gm/ Sodium Chloride) 100 mls @ 200 mls/hr IV Q6H [facility] Stop: 02/07/20 23:59 Last Infusion: 02/07/20 18:06 Dose: 0 mls/hr Medication Titration Document 02/07/20 18:06 JEG (Rec: 02/07/20 18:31 JEG [id number]) Titration Intake Titration Intake 100 Cumulative Intake 100 Container Volume 0 Elapsed Time 21h 8m Titration Dosing IV Rate 0 Increase/Decrease Infused Cumulative Dose 0 Total Intake (Rx) 2,800 Volume Adjustment/Waste 0 Sodium Chloride (Normal Saline 0.9%) 500 mls @ 999 mls/hr IV ONCE ONE Stop: 01/31/20 21:45 Last Infusion: 01/31/20 21:48 Dose: 0 mls/hr Medication Titration Document 01/31/20 21:48 JPT (Rec: 01/31/20 21:48 JPT [id number]) Titration Intake Titration Intake 500 Cumulative Intake 500 Container Volume 0 Elapsed Time 38m Titration Dosing IV Rate 0 Increase/Decrease Infused Cumulative Dose Not Applicable Total Intake (Rx) 500 Volume Adjustment/Waste 0 Vancomycin HCl 100 gm/ Sodium (Chloride) 250 mls @ 167 mls/hr IV Q400H [facility] Last Infusion: 02/01/20 00:42 Dose: 0 mls/hr Medication Titration Document 02/01/20 00:42 [facility] (Rec: 02/01/20 00:43 [facility] [id number]) Titration Intake Titration Intake 250 Cumulative Intake 250 Container Volume 0 Elapsed Time 2h 37m Titration Dosing IV Rate 0 Increase/Decrease Infused Cumulative Dose 0 Total Intake (Rx) 250 Volume Adjustment/Waste 0 Vancomycin HCl 1.75 gm/ Sodium (Chloride) 500 mls @ 250 mls/hr IV Q12H [facility] Last Infusion: 02/02/20 02:20 Dose: 0 mls/hr Medication Titration Document 02/02/20 02:20 [facility] (Rec: 02/02/20 02:20 [facility] [id number]) Titration Intake Titration Intake 500 Cumulative Intake 500 Container Volume 0 Elapsed Time 4h 47m Titration Dosing IV Rate 0 Increase/Decrease Infused Cumulative Dose 0 Total Intake (Rx) 1,000 Volume Adjustment/Waste 0 Dopamine HCl/Dextrose (Dopamine) 800 mg in 500 mls @ 8.85 mls/hr IV .[id number] [facility]; Protocol Last Titration: 02/06/20 17:26 Dose: 0 mcg/kg/min, 0 mls/hr Medication Titration Document 02/06/20 17:26 [facility] (Rec: 02/06/20 17:27 [facility] [id number]) Titration Intake Titration Intake 0 Cumulative Intake 13.717 Container Volume 0 Elapsed Time 4d 15h 17m Titration Dosing Titration Dose 0 IV Rate 0 Increase/Decrease Infused Cumulative Dose 4621.864 Total Intake (Rx) 2,888.665 Volume Adjustment/Waste 486.283 Propofol (Diprivan) 100 mls @ 7.11 mls/hr IV .Q14H4M [facility]; Protocol Last Titration: 02/06/20 12:15 Dose: 30 mcg/kg/min, 21.33 mls/hr Medication Titration Document 02/06/20 12:15 AMV (Rec: 02/06/20 12:15 AMV [id number]) Titration Intake Titration Intake 26.663 Cumulative Intake 86.031 Container Volume 0 Elapsed Time 3d 21h 38m Titration Dosing Titration Dose 30 IV Rate 21.33 Increase/Decrease Infused Cumulative Dose 72127.54 Total Intake (Rx) 2,011.854 Volume Adjustment/Waste 13.969 Vancomycin HCl 1 gm/Vancomycin HCl 250 mg/ Sodium Chloride 250 mls @ 166.667 mls/hr IV Q12H [facility] Last Infusion: 02/04/20 05:22 Dose: 0 mls/hr Medication Titration Document 02/04/20 05:22 MFR (Rec: 02/04/20 05:22 MFR [id number]) Titration Intake Titration Intake 250 Cumulative Intake 250 Container Volume 0 Elapsed Time 6h 42m Titration Dosing IV Rate 0 Increase/Decrease Infused Cumulative Dose Not Applicable Total Intake (Rx) 1,000 Volume Adjustment/Waste 0 Sodium Bicarbonate 100 meq/ (Dextrose) 1,100 mls @ 100 mls/hr IV .Q11H [facility] Last Infusion: 02/04/20 11:14 Dose: 0 mls/hr Medication Titration Document 02/04/20 11:14 MM (Rec: 02/04/20 11:14 MM [id number]) Titration Intake Titration Intake 64 Cumulative Intake 64 Container Volume 0 Elapsed Time 45h 1m Titration Dosing IV Rate 0 Increase/Decrease Infused Cumulative Dose 0 Total Intake (Rx) 4,464 Volume Adjustment/Waste 1,036 Norepinephrine Bitartrate 8 mg (/ Dextrose) 250 mls @ 15 mls/hr IV .[id number] [facility]; Protocol Last Titration: 02/07/20 13:17 Dose: 0 mcg/min, 0 mls/hr Medication Titration Document 02/07/20 13:17 JEG (Rec: 02/07/20 17:39 JEG [id number]) Titration Intake Titration Intake 7.063 Cumulative Intake 250 Container Volume 0 Elapsed Time 27h 53m Titration Dosing Titration Dose 0 IV Rate 0 Increase/Decrease Infused Cumulative Dose 23.2676 Total Intake (Rx) 727.126 Volume Adjustment/Waste 0 Propofol (Diprivan) 100 mls @ 7.11 mls/hr IV .Q14H4M [facility]; Protocol Last Titration: 02/07/20 21:52 Dose: 0 mcg/kg/min, 0 mls/hr Medication Titration Document 02/07/20 21:52 RG (Rec: 02/07/20 21:52 RG [id number]) Titration Intake Titration Intake 100 Cumulative Intake 100 Container Volume 0 Elapsed Time 22h 6m Titration Dosing Titration Dose 0 IV Rate 0 Increase/Decrease Infused Cumulative Dose 4000 Total Intake (Rx) 400 Volume Adjustment/Waste 0 Ketorolac Tromethamine (Toradol Inj (15mg)) 15 mg IVP ONCE [facility] Stop: 01/29/20 10:07 Last Admin: 01/29/20 10:43 Dose: 15 mg Ketorolac Tromethamine (Toradol Inj (15mg)) 15 mg IVP Q6HR PRN PRN Reason: PAIN Stop: 02/03/20 17:47 Last Admin: 01/31/20 16:05 Dose: 15 mg Pain Assessment Document 01/31/20 16:05 SAT (Rec: 01/31/20 16:05 SAT [id number]) Pain Level Pain Scale Used 0-10 Intensity (0-10) 5 Re-Assess: Pain Reassessment Document 01/31/20 16:35 SAT (Rec: 01/31/20 16:43 SAT [id number]) Reassessment Pain Scale Used 0-10 Pain Intensity (0-10) 4 Effective/Ineffective Effective Levothyroxine Sodium (Synthroid) 125 mcg PO QDAC [facility] Last Admin: 02/06/20 06:50 Dose: 125 mcg Ondansetron HCl (Zofran Inj) 4 mg IVP ONCE [facility] Stop: 01/29/20 10:07 Last Admin: 01/29/20 10:30 Dose: 4 mg Pantoprazole Sodium (Protonix) 40 mg IVP BID [facility] Last Admin: 02/05/20 20:27 Dose: 40 mg Polyethylene Glycol (Miralax) 17 gm PO DAILY [facility] Last Admin: 02/05/20 09:20 Dose: 17 gm Potassium Chloride (K-Dur) 20 meq PO ONCE ONE Stop: 01/29/20 17:01 Last Admin: 01/29/20 18:08 Dose: 20 meq Potassium Chloride () 40 meq PO ONCE ONE; Protocol Stop: 02/03/20 06:31 Last Admin: 02/03/20 06:38 Dose: 40 meq Sodium Chloride (Normal Saline Flush 0.9%) 10 ml IVP PRN PRN PRN Reason: NEEDED PER PROVIDER ORDERS Last Admin: 02/05/20 11:19 Dose: 10 ml Sodium Chloride (Normal Saline Flush 0.9%) 10 ml IVP 0100,0900,1700 [place] Last Admin: 02/05/20 09:21 Dose: 10 ml Zolpidem Tartrate (Ambien) 5 mg PO QPM PRN PRN Reason: Insomnia Last Admin: 01/30/20 20:38 Dose: 5 mg Re-Assess: General PRN Medication Reasses Document 01/30/20 21:38 KF (Rec: 01/30/20 22:03 KF [id number]) Reassessment Effective/Ineffective Effective Objective - Vital Signs/Intake & Output Reviewed Vital Signs: Yes Vital Signs: Vital Signs Temp Pulse Pulse Resp BP BP Pulse Ox 02/09/20 12:00 36.2 C L 55 L 18 90/49 L 97 02/09/20 11:38 55 L 02/09/20 11:00 53 L 18 103/56 L 99 02/09/20 10:21 96/58 L 02/09/20 10:12 84/48 L 02/09/20 10:00 58 L 18 82/46 L 98 02/09/20 09:00 72 10 L 85/41 L 97 Intake & Output: Intake & Output 02/06/20 02/07/20 02/08/20 02/09/20 23:59 23:59 23:59 23:59 Intake Total 2924.137 3064.657 2284.919 1134.998 Output Total 2288 2075 1747 610 Balance 636.137 989.657 537.919 524.998 - Objective General Appearance: positive: Other (Patient is intubated, sedated chemically, Otherwise appears to be stable) Eyes Bilateral: positive: Normal inspection, No lid inflammation ENT: positive: ENT inspection nml, Pharynx nml, No signs of dehydration Neck: positive: Nml inspection, Thyroid nml, No JVD (RIJ CDI) Respiratory: positive: Chest non-tender, No respiratory distress, Other (Breath sounds are diminished diffusely bilaterally). negative: Wheezes, Rales, Rhonchi Cardiovascular: positive: Regular rate & rhythm, No murmur, No gallop Abdomen: positive: Non-tender, No organomegaly, Nml bowel sounds, No distention Skin: positive: Color nml Extremities: positive: Nml appearance, Pedal edema (Bilateral upper and lower extremity 1+ pitting edema) Neurologic/Psychiatric: positive: CN's nml (2-12), Other (Patient is chemically sedated, no visible agitation at the time of exam but has been noted at lower doses of sedating medications). negative: Facial droop - Lab Results Fish Bones: 02/09/20 06:15 02/09/20 06:15 Other Labs: Lab Results x24hrs 02/09/20 02/09/20 02/09/20 Range/Units 11:54 06:15 06:15 WBC (4.8-10.8) x10^3/uL RBC (4.20-5.40) 10^6/uL Hgb (12.0-16.0) g/dL Hct (37.0-47.0) % MCV (81.0-99.0) fL MCH (27.0-31.0) pg MCHC (32.0-36.0) g/dL RDW (12.0-15.0) % Plt Count (130-450) 10^3/uL MPV (7.9-10.8) fL Neut # (Auto) (1.5-6.6) 10^3/uL Lymph # (Auto) (1.5-3.5) 10^3/uL Carver # (Auto) (0.0-1.0) 10^3/uL Eos # (Auto) (0.0-0.7) 10^3/uL Baso # (Auto) (0.0-0.1) 10^3/uL Absolute Nucleated RBC x10^3/uL Nucleated RBC % /100WBC Sodium 139 (135-145) mmol/L Potassium 4.1 (3.5-5.0) mmol/L Chloride 109 (101-111) mmol/L Carbon Dioxide 27 (21-32) mmol/L Anion Gap 3.0 L (6-13) BUN 26 H (6-20) mg/dL Creatinine 1.2 H (0.4-1.0) mg/dL Estimated GFR (MDRD) 46 L (>89) Glucose 121 H (70-100) mg/dL POC Whole Bld Glucose 108 H (70 - 100) mg/dL Calcium 8.0 L (8.5-10.3) mg/dL Phosphorus 3.2 (2.5-4.6) mg/dL Albumin 1.9 L (3.2-5.5) g/dL 02/09/20 02/09/20 02/08/20 Range/Units 06:15 05:36 23:49 WBC 11.8 H (4.8-10.8) x10^3/uL RBC 2.75 L (4.20-5.40) 10^6/uL Hgb 7.7 L (12.0-16.0) g/dL Hct 26.3 L (37.0-47.0) % MCV 95.6 (81.0-99.0) fL MCH 28.0 (27.0-31.0) pg MCHC 29.3 L (32.0-36.0) g/dL RDW 15.2 H (12.0-15.0) % Plt Count 470 H (130-450) 10^3/uL MPV 9.8 (7.9-10.8) fL Neut # (Auto) 7.5 H (1.5-6.6) 10^3/uL Lymph # (Auto) 2.9 (1.5-3.5) 10^3/uL Carver # (Auto) 0.9 (0.0-1.0) 10^3/uL Eos # (Auto) 0.4 (0.0-0.7) 10^3/uL Baso # (Auto) 0.1 (0.0-0.1) 10^3/uL Absolute Nucleated RBC 0.00 x10^3/uL Nucleated RBC % 0.0 /100WBC Sodium (135-145) mmol/L Potassium (3.5-5.0) mmol/L Chloride (101-111) mmol/L Carbon Dioxide (21-32) mmol/L Anion Gap (6-13) BUN (6-20) mg/dL Creatinine (0.4-1.0) mg/dL Estimated GFR (MDRD) (>89) Glucose (70-100) mg/dL POC Whole Bld Glucose 123 H 128 H (70 - 100) mg/dL Calcium (8.5-10.3) mg/dL Phosphorus (2.5-4.6) mg/dL Albumin (3.2-5.5) g/dL 02/08/20 02/08/20 Range/Units 17:57 12:18 WBC (4.8-10.8) x10^3/uL RBC (4.20-5.40) 10^6/uL Hgb (12.0-16.0) g/dL Hct (37.0-47.0) % MCV (81.0-99.0) fL MCH (27.0-31.0) pg MCHC (32.0-36.0) g/dL RDW (12.0-15.0) % Plt Count (130-450) 10^3/uL MPV (7.9-10.8) fL Neut # (Auto) (1.5-6.6) 10^3/uL Lymph # (Auto) (1.5-3.5) 10^3/uL Carver # (Auto) (0.0-1.0) 10^3/uL Eos # (Auto) (0.0-0.7) 10^3/uL Baso # (Auto) (0.0-0.1) 10^3/uL Absolute Nucleated RBC x10^3/uL Nucleated RBC % /100WBC Sodium (135-145) mmol/L Potassium (3.5-5.0) mmol/L Chloride (101-111) mmol/L Carbon Dioxide (21-32) mmol/L Anion Gap (6-13) BUN (6-20) mg/dL Creatinine (0.4-1.0) mg/dL Estimated GFR (MDRD) (>89) Glucose (70-100) mg/dL POC Whole Bld Glucose 127 H 117 H (70 - 100) mg/dL Calcium (8.5-10.3) mg/dL Phosphorus (2.5-4.6) mg/dL Albumin (3.2-5.5) g/dL - Diagnostic Imaging Diagnostic Imaging Results: positive: Final report reviewed Assessment/Plan - Problem List (1) Pneumonia due to 2019 novel coronavirus Impression: Patient appears to be doing well from a ventilation point of view. Oxygen saturations maintaining at 50% FiO2 and PEEP of 5. Anticipate from a ventilatory point of view, she could likely tolerate extubation and possibly responds well to CPAP. However, the patient's agitation has been interfering with the ability to tolerate weaning off the vent. Her biggest challenge should be an adequate respirations if she is not adequately sedated. At this point, discussed with nursing and RT we will try to add Haldol, while decreasing propofol, uptitrating the Precedex, and see if by later today she will be able to tolerate CPAP setting on the events. Perhaps we will keep her intubated on CPAP until tomorrow morning such that anesthesia will be available for several hours after extubation rather than intubating her at the end of hours today, in hopes of avoiding a emergent reintubation without the availability of anesthesia. (2) ARDS (adult respiratory distress syndrome) Impression: As above, improving from a respiratory point of view, continue to work on w eaning off the vent. (3) Hypotension Impression: Improving, propofol will be titrated down today, continue to follow. Qualifiers: Hypotension type: hypotension due to drug Qualified Code(s): I95.2 - Hypo tension due to drugs (4) Moderate protein-calorie malnutrition Impression: Doing well on tube feeds, to avoid fluid overload with out to the need for diuresis, will hold tube feeds for the remainder of today. (5) Thrombocytosis Impression: Improving (6) CLL (chronic lymphocytic leukemia) Impression: Stable (7) Hypothyroidism Impression: Stable, continue current medication by IV (8) Anemia Impression: Persistent but slow and minimal downward trend of hemoglobin and hematocrit, likely dilutional effect. Continue to monitor. No signs of bleeding. Qualifiers: Anemia type: due to chronic kidney disease (9) JANICE (acute kidney injury) Impression: Improved.
[2020-02-09] MEDS: DEXMEDETOMIDINE 400 MCG in SODIUM CHLORIDE 0.9% 100ML 96 ML IV SCH ×4 (14:00→22:56)
[2020-02-09] MEDS: fentaNYL 2,500 MCG in SODIUM CHLORIDE 0.9% 200 ML IV SCH ×2 (15:22→22:07)
[2020-02-09] MEDS: ZINC OXIDE 20% OINT 30 GM TUBE TOP PRN (17:27)
[2020-02-10] MEDS: PROPOFOL 500 MG/50 ML 500 MG/50 ML VIAL IV SCH ×14 (00:11→23:45)
[2020-02-10] MEDS: SODIUM CHLORIDE FLUSH 0.9% 10 ML SYRINGE IVP SCH ×2 (01:09→08:11)
[2020-02-10] MEDS: DEXMEDETOMIDINE 400 MCG in SODIUM CHLORIDE 0.9% 100ML 96 ML IV SCH ×6 (01:25→14:36)
[2020-02-10 05:47] LABS: BASOPHILS # (AUTO) 0.1 10^3/uL (0.0-0.1); EOSINOPHILS # (AUTO) 0.5 10^3/uL (0.0-0.7); HGB - HEMOGLOBIN 7.7 g/dL (12.0-16.0); LYMPHOCYTES # (AUTO) 2.5 10^3/uL (1.5-3.5); LYMPHOCYTES % (AUTO) 25.1 %; MEAN CORPUSCULAR HEMOGLOBIN 28.6 pg (27.0-31.0); MEAN CORPUSCULAR HGB CONC 29.5 g/dL (32.0-36.0); MEAN PLATELET VOLUME 9.8 fL (7.9-10.8); MONOCYTES # (AUTO) 0.8 10^3/uL (0.0-1.0); NEUTROPHILS # (AUTO) 5.9 10^3/uL (1.5-6.6); NEUTROPHILS % (AUTO) 60.1 %; PLT - PLATELET COUNT 448 10^3/uL (130-450); RED BLOOD COUNT 2.69 10^6/uL (4.20-5.40); RED CELL DISTRIBUTION WIDTH 15.3 % (12.0-15.0); WHITE BLOOD COUNT 9.8 x10^3/uL (4.8-10.8)
[2020-02-10 06:02] LABS: ALBUMIN 1.7 g/dL (3.2-5.5); CALCIUM 8.1 mg/dL (8.5-10.3); PHOSPHORUS 3.8 mg/dL (2.5-4.6)
[2020-02-10] MEDS: LEVOTHYROXINE 125 MCG TABLET NG SCH (06:04)
[2020-02-10] MEDS: HALOPERIDOL 5 MG/ML VIAL IVP PRN (06:04)
[2020-02-10] MEDS: PANTOPRAZOLE 40 MG VIAL IVP SCH (08:10)
[2020-02-10] MEDS: SODIUM CHLORIDE FLUSH 0.9% 10 ML SYRINGE IVP PRN (08:11)
[2020-02-10] MEDS ORDERED: SODIUM CHLORIDE 0.9% 500 ML IV PRN (08:23)
[2020-02-10] MEDS: CHLORHEXIDINE GLUCONATE 15 ML UDC PO SCH ×2 (08:55→20:06)
[2020-02-10] MEDS: ENOXAPARIN 40 MG/0.4 ML SYRINGE SUBQ SCH (08:55)
[2020-02-10] MEDS: fentaNYL 2,500 MCG in SODIUM CHLORIDE 0.9% 200 ML IV SCH ×2 (09:27→10:16)
[2020-02-10 09:45] LABS: ABG BASE EXCESS -0.9 mmol/L (-2.0-3.0); ABG HCO3 23.2 mmol/L (22.0-26.0); ABG OXYGEN SATURATION 94 % (94-98); ABG PCO2 36 mmHg (34-45); ABG PH 7.43 (7.35-7.45); ABG PO2 74 mmHg (80-100); ABG TCO2 24.3 MMOL/L (21.0-29.0); ALLEN TEST POSITIVE
[2020-02-10] MEDS ORDERED: RACEPINEPHRINE 2.25% NEB INH ONE ×2 (11:23→11:28)
[2020-02-10] MEDS ORDERED: SODIUM CHLORIDE INHALATION 3 ML NEB ONE (11:43)
[2020-02-10] MEDS: DEXMEDETOMIDINE 1,000 MCG in SODIUM CHLORIDE 0.9% 240 ML IV SCH (13:12)
--- NOTE | 2020-02-10 13:24 | ANESTHESIA PROCEDURE NOTE ---
Anesthesia Intubation Template - Intubation Blade: positive: Glidescope Tube: Size-enter number (7.5), Cuffed, Marked at teeth-enter cm (23) Route: Oral Placement Confirmation: End tidal CO2, Bilateral breath sounds Complications: No complications (Call to ICU for pt with increased WOB and decreasing SATs and LOC. Pt was extubated at 1005 and had been worsening since. HOB down to 30 degrees, Rocuronium 40mg IV followed with NS flush. Glidescope to a view of 2 after suctioning of heavy thick secretions. Airway edemetous including the epiglottis, carniculate cartilage and surrounding tissue, and bilaterall vocal cords. Cord opening limited even after paralytic appears to be working. 7.5ETT placed to 22@teeth after cuff inflated. +ETCO2, BBS, Sats imporved with ambu mask ventilation. Secured. New PCXR ordered to confirm placement.)
--- NOTE | 2020-02-10 13:45 | XRAY Report ---
Reason: ET TUBE PLACEMENT Procedure Date: 02/10/2020 Accession Number: [id number] / [id number] Procedure: XR - Chest for Line Placement CPT Code: Final Report FULL RESULT: EXAM: CHEST RADIOGRAPHY EXAM DATE: 02/10/2020 01:28 PM. CLINICAL HISTORY: ET tube placement. COMPARISON: CHEST 1 VIEW 02/07/2020 5:29 PM. CHEST 1 VIEW 02/07/2020 2:03 PM. TECHNIQUE: 1 view. FINDINGS: Lungs/Pleura: Interval worsening of bilateral patchy infiltrates, with obscuration of left hemidiaphragm suggesting consolidation and/or pleural fluid. Mediastinum: Heart size stable and within normal limits. Other: Distal tip of endotracheal tube approximately 3.5 cm above the jacoby. Nasogastric tube courses through the mediastinum to the stomach as before. Right IJ central venous line, with the distal catheter tip located just proximal to the origin of the SVC. IMPRESSION: Interval worsening of bilateral patchy infiltrates. RADIA
[2020-02-10] MEDS: CISATRACURIUM BESYLATE 100 MG in SODIUM CHLORIDE 0.9% 200 ML IV SCH ×2 (14:10→22:50)
--- NOTE | 2020-02-10 16:14 | PROVIDER PROGRESS NOTE ---
Subjective - Prog Note Date Prog Note Date: 02/10/20 Prog Note Time: 16:12 - Subjective Subjective: Patient is intubated at beginning of the day, extubated briefly, and at that time still Unable to speak due to laryngeal edema, vocal cords, and sedation. Appeared to be anxious. Was able to nod head yes and no, and seems to be denying any complaints of pain, but was responding in the affirmative to shortness of breath. Current Medications - Current Medications Current Medications: Active Medications Chlorhexidine Gluconate (Peridex) 15 ml PO BID CORONA Last Admin: 02/10/20 08:55 Dose: 15 ml Enoxaparin Sodium (Lovenox) 40 mg SUBQ DAILY [facility] Last Admin: 02/10/20 08:55 Dose: 40 mg Haloperidol (Haldol Inj) 3 mg IVP Q6H PRN PRN Reason: Agitation Last Admin: 02/10/20 06:04 Dose: 3 mg Fentanyl 2,500 mcg/ Sodium (Chloride) 250 mls @ 11.85 mls/hr IV .Q21H6M [place]ONA; Protocol Last Titration: 02/10/20 16:12 Dose: 2 mcg/kg/hr, 23.7 mls/hr Propofol (Diprivan) 500 mg in 50 mls @ 28.44 mls/hr IV .Q1H46M [facility]; Protocol Last Admin: 02/10/20 16:08 Dose: 40 mcg/kg/min, 28.44 mls/hr Norepinephrine Bitartrate 8 mg (/ Dextrose) 250 mls @ 30 mls/hr IV .Q8H20M [facility]; Protocol Last Titration: 02/10/20 16:11 Dose: 8 mcg/min, 15 mls/hr Sodium Chloride (Normal Saline 0.9%) 500 mls @ 0 mls/hr IV Q24H PRN PRN Reason: TKO RATE Last Infusion: 02/10/20 16:12 Dose: 10 mls/hr Dexmedetomidine HCl 1,000 mcg/ (Sodium Chloride) 250 mls @ 16.88 mls/hr IV .[id number] [place]; Protocol Last Titration: 02/10/20 16:11 Dose: 0.3 mcg/kg/hr, 10.13 mls/hr Cisatracurium Besylate 100 mg/ (Sodium Chloride) 250 mls @ 20.4 mls/hr IV .[id number] [facility]; Protocol Last Titration: 02/10/20 15:49 Dose: 1.5 mcg/kg/min, 30.6 mls/hr Levothyroxine Sodium (Synthroid) 125 mcg NG QDAC [facility] Last Admin: 02/10/20 06:04 Dose: 125 mcg Multi-Ingredient Ointment (Zinc Oxide) 1 applic TOP PRN PRN PRN Reason: Skin Care Last Admin: 02/09/20 17:27 Dose: 1 applic Ondansetron HCl (Zofran Inj) 4 mg IVP Q6HR PRN PRN Reason: Nausea / Vomiting Last Admin: 02/09/20 12:03 Dose: 4 mg Pantoprazole Sodium (Protonix) 40 mg IVP DAILY [facility] Last Admin: 02/10/20 08:10 Dose: 40 mg Sodium Chloride (Normal Saline Flush 0.9%) 10 ml IVP 0100,0900,1700 [facility] Last Admin: 02/10/20 08:11 Dose: 10 ml Sodium Chloride (Normal Saline Flush 0.9%) 10 ml IVP PRN PRN PRN Reason: NEEDED PER PROVIDER ORDERS Last Admin: 02/10/20 08:11 Dose: 10 ml Sodium Chloride (Normal Saline Flush 0.9%) 20 ml IVP PRN PRN PRN Reason: After Blood Draw Last Admin: 02/07/20 17:40 Dose: 20 ml Duloxetine HCl [Cymbalta] 2 tab DAILY 01/29/20 Levothyroxine [Synthroid] 1 tab DAILY 01/29/20 Melatonin 1 tab DAILY 01/29/20 Objective - Vital Signs/Intake & Output Reviewed Vital Signs: Yes Vital Signs: Vital Signs Temp Pulse Pulse Resp BP Pulse Ox 02/10/20 15:48 53 L 02/10/20 15:00 52 L 20 130/70 98 02/10/20 14:42 53 L 129/69 02/10/20 14:38 51 L 20 126/69 97 02/10/20 14:20 78/36 L 02/10/20 14:19 59 L 02/10/20 14:00 59 L 20 63/33 L 96 02/10/20 13:00 77 20 124/56 L 99 02/10/20 12:34 36.4 C L 82 24 148/78 H 97 02/10/20 12:25 100 32 H 02/10/20 12:21 82 Intake & Output: Intake & Output 02/07/20 02/08/20 02/09/20 02/10/20 23:59 23:59 23:59 23:59 Intake Total 3064.657 2284.919 2786.766 2218.962 Output Total 2075 1747 963 864 Balance 989.657 651.360 7171.766 1354.962 - Objective General Appearance: positive: Other (On exam, patient initially extubated and sedated. Shortly after extubation, immediately becoming anxious, mildly alert, somewhat following commands, eventually required reintubation due to increased work of breathing and acute respiratory distress) Eyes Bilateral: positive: Normal inspection, No lid inflammation, Conjunctivae nml, No scleral icterus ENT: positive: ENT inspection nml, Other (On gross exam, no appreciable abnormalities, dry mucous membranes, however on kaleidoscope visualization, moderate to severe edema of the larynx, epiglottis, and vocal cords) Neck: positive: Nml inspection, Thyroid nml, Trachea midline, Other ([facility]) Respiratory: positive: Rhonchi. negative: Wheezes (Patient was evaluated at multiple points during the day, initially prior to attempt at extubation patient had mild rhonchi bilaterally, left base worse than right. Shortly after extubation patient developed a audible stridor, and increased respiratory effort prompting reintubation rather quickly. After reintubation, patient's respiratory rate controlled by vent, with better tolerance of work of breathing and diminished breath sounds with mild rhonchi) Cardiovascular: positive: Regular rate & rhythm, No murmur, No gallop Abdomen: positive: Non-tender, No organomegaly, Nml bowel sounds, No distention Skin: positive: Color nml, No rash. negative: Pallor Extremities: positive: Pedal edema Neurologic/Psychiatric: positive: Other (Patient sedated, briefly extubated and anxious, reintubated and again sedated. During brief interval post extubation, patient did not demonstrate any focal neurological deficits appeared to be able to voluntarily move all 4 extremities, and appeared to be appropriately responsive to questions of pain) - Lab Results Fish Bones: 02/10/20 05:23 02/10/20 05:23 Other Labs: Lab Results x24hrs 02/10/20 02/10/20 02/10/20 Range/Units 12:53 09:35 06:01 WBC (4.8-10.8) x10^3/uL RBC (4.20-5.40) 10^6/uL Hgb (12.0-16.0) g/dL Hct (37.0-47.0) % MCV (81.0-99.0) fL MCH (27.0-31.0) pg MCHC (32.0-36.0) g/dL RDW (12.0-15.0) % Plt Count (130-450) 10^3/uL MPV (7.9-10.8) fL Neut # (Auto) (1.5-6.6) 10^3/uL Lymph # (Auto) (1.5-3.5) 10^3/uL Murray # (Auto) (0.0-1.0) 10^3/uL Eos # (Auto) (0.0-0.7) 10^3/uL Baso # (Auto) (0.0-0.1) 10^3/uL Absolute Nucleated RBC x10^3/uL Nucleated RBC % /100WBC Bld Gas Analysis Time 0935 Sample Site LEFT RADIAL ABG pH 7.43 (7.35-7.45) ABG pCO2 36 (34-45) mmHg ABG pO2 74 L (80-100) mmHg ABG HCO3 23.2 (22.0-26.0) mmol/L ABG Total CO2 24.3 (21.0-29.0) MMOL/L ABG O2 Saturation 94 (94-98) % ABG Base Excess -0.9 (-2.0-3.0) mmol/L Kelvin Test POSITIVE Respiration Rate 14 b/min O2 Delivery Device VENTILATOR Vent Mode CPAP FiO2 40.00 PEEP 5 cmH2O Pressure Support Vent 10 cmH2O Sodium (135-145) mmol/L Potassium (3.5-5.0) mmol/L Chloride (101-111) mmol/L Carbon Dioxide (21-32) mmol/L Anion Gap (6-13) BUN (6-20) mg/dL Creatinine (0.4-1.0) mg/dL Estimated GFR (MDRD) (>89) Glucose (70-100) mg/dL POC Whole Bld Glucose 114 H 117 H (70 - 100) mg/dL Calcium (8.5-10.3) mg/dL Phosphorus (2.5-4.6) mg/dL Magnesium (1.7-2.8) mg/dL Albumin (3.2-5.5) g/dL 02/10/20 02/10/20 02/10/20 Range/Units 05:23 05:23 05:23 WBC 9.8 (4.8-10.8) x10^3/uL RBC 2.69 L (4.20-5.40) 10^6/uL Hgb 7.7 L (12.0-16.0) g/dL Hct 26.1 L (37.0-47.0) % MCV 97.0 (81.0-99.0) fL MCH 28.6 (27.0-31.0) pg MCHC 29.5 L (32.0-36.0) g/dL RDW 15.3 H (12.0-15.0) % Plt Count 448 (130-450) 10^3/uL MPV 9.8 (7.9-10.8) fL Neut # (Auto) 5.9 (1.5-6.6) 10^3/uL Lymph # (Auto) 2.5 (1.5-3.5) 10^3/uL Murray # (Auto) 0.8 (0.0-1.0) 10^3/uL Eos # (Auto) 0.5 (0.0-0.7) 10^3/uL Baso # (Auto) 0.1 (0.0-0.1) 10^3/uL Absolute Nucleated RBC 0.00 x10^3/uL Nucleated RBC % 0.0 /100WBC Bld Gas Analysis Time Sample Site ABG pH (7.35-7.45) ABG pCO2 (34-45) mmHg ABG pO2 (80-100) mmHg ABG HCO3 (22.0-26.0) mmol/L ABG Total CO2 (21.0-29.0) MMOL/L ABG O2 Saturation (94-98) % ABG Base Excess (-2.0-3.0) mmol/L Kelvin Test Respiration Rate b/min O2 Delivery Device Vent Mode FiO2 PEEP cmH2O Pressure Support Vent cmH2O Sodium 142 (135-145) mmol/L Potassium 4.6 (3.5-5.0) mmol/L Chloride 108 (101-111) mmol/L Carbon Dioxide 28 (21-32) mmol/L Anion Gap 6.0 (6-13) BUN 25 H (6-20) mg/dL Creatinine 1.0 (0.4-1.0) mg/dL Estimated GFR (MDRD) 56 L (>89) Glucose 131 H (70-100) mg/dL POC Whole Bld Glucose (70 - 100) mg/dL Calcium 8.1 L (8.5-10.3) mg/dL Phosphorus 3.8 (2.5-4.6) mg/dL Magnesium 2.6 (1.7-2.8) mg/dL Albumin 1.7 L (3.2-5.5) g/dL 02/10/20 02/09/20 Range/Units 00:02 18:15 WBC (4.8-10.8) x10^3/uL RBC (4.20-5.40) 10^6/uL Hgb (12.0-16.0) g/dL Hct (37.0-47.0) % MCV (81.0-99.0) fL MCH (27.0-31.0) pg MCHC (32.0-36.0) g/dL RDW (12.0-15.0) % Plt Count (130-450) 10^3/uL MPV (7.9-10.8) fL Neut # (Auto) (1.5-6.6) 10^3/uL Lymph # (Auto) (1.5-3.5) 10^3/uL Murray # (Auto) (0.0-1.0) 10^3/uL Eos # (Auto) (0.0-0.7) 10^3/uL Baso # (Auto) (0.0-0.1) 10^3/uL Absolute Nucleated RBC x10^3/uL Nucleated RBC % /100WBC Bld Gas Analysis Time Sample Site ABG pH (7.35-7.45) ABG pCO2 (34-45) mmHg ABG pO2 (80-100) mmHg ABG HCO3 (22.0-26.0) mmol/L ABG Total CO2 (21.0-29.0) MMOL/L ABG O2 Saturation (94-98) % ABG Base Excess (-2.0-3.0) mmol/L Kelvin Test Respiration Rate b/min O2 Delivery Device Vent Mode FiO2 PEEP cmH2O Pressure Support Vent cmH2O Sodium (135-145) mmol/L Potassium (3.5-5.0) mmol/L Chloride (101-111) mmol/L Carbon Dioxide (21-32) mmol/L Anion Gap (6-13) BUN (6-20) mg/dL Creatinine (0.4-1.0) mg/dL Estimated GFR (MDRD) (>89) Glucose (70-100) mg/dL POC Whole Bld Glucose 120 H 115 H (70 - 100) mg/dL Calcium (8.5-10.3) mg/dL Phosphorus (2.5-4.6) mg/dL Magnesium (1.7-2.8) mg/dL Albumin (3.2-5.5) g/dL - Diagnostic Imaging Diagnostic Imaging Results: positive: Final report reviewed, Read independently Assessment/Plan - Problem List (1) Pneumonia due to 2019 novel coronavirus Impression: Patient was evaluated multiple times today. Initially, on morning rounds, patient was evaluated and found to be in stable condition. As was discussed on the day prior, plans were pursued to extubate patient as her oxygen requirement had significantly improved. At the start of morning shift, she was on FiO2 45%, PEEP of 5, respiratory rate at 18. She had shown signs of waking, and it was felt after consultation with Dr. Ant Henderson (anasthesia/critical care consult) That she would be appropriate for extubation. This was further supported by the difficulty the patient was demonstrating with sedation, suggesting that she would ultimately self extubate even if a planned extubation was not performed. With proper preparation, and with the presence of DYNAMIC [employer]ANCER, anesthesia, aspiratory therapy, nursing, and hospitalist attending, extubation was successfully performed. Patient was able to saturate well on 6 L on open facemask. She was able to appropriately respond to questions in a nonverbal manner. Vital signs initially remained stable. Unfortunately, however shortly after, patient began to develop increased work of breathing, and an audible stridor was heard. An attempt was made to address the stridor hoping that opening the airway would be adequate and addressing the patient's work of breathing, however despite a single dose of racemic epinephrine, the patient rapidly deteriorated and respiratory rates increased to over 30, and the patient was using accessory muscles demonstrating impending respiratory failure necessitating reintubation. During the procedure, and direct visualization with glidescope Demonstrated significant edema of the vocal cords and laryngeal structures,Suggesting that the patient's respiratory distress is secondary to upper airway mechanical and structural obstruction rather than failure of improvement in pulmonary function. Patient was placed back on the ventilator, again at 45% FiO2, with an increased inspiratory phase of 2.0For ratio of 2-1. Chest x-ray confirmed adequate placement of the ET tube, and worsening bilateral opacities.Given her lack of clinical improvement, and worsening opacities on the chest x-ray, it is difficult to differentiate if patient is also developing a superimposed ventilator associated pneumonia. However, she has not had any fevers to suggest this, and white count up to this morning had been trending downward. We will continue to monitor her clinical course closely, and pending vital signs overnight and labs in the morning, may need to consider empiric treatment with vancomycin, gentamicin, cefepime. In addition, we need to consider the probable need for tracheotomy. This is tentatively scheduled for 02/11/2020.Dr. Curry has kindly offered to perform this procedure. It has been discussed to consider the use of glucocorticoids in an attempt to open the pharyngeal airway space with the intention of possibly office gating the need for a tracheotomy. Given the uncertainties surrounding the novel coronavirus and lack of clear guidelines surrounding this, it will need to be c onsidered carefully as there has been some literature to suggest worsening with use of glucocorticoids and viral pneumonia similar to her current infection. This will need to be weighed against the possible risks associated with prolonged intubation and tracheotomy. (2) ARDS (adult respiratory distress syndrome) Impression: Same as above Pt was see on am rounds, then again for critical care at the time pt's repsiratory status declined, requiring multiple re-evaluations. This patient required critical care. Due to the fact that the patient required a significant amount of one on one physician patient contact time, ordering and review of studies, arranging urgent treatment with development of a management plan, evaluation of patients response to treatment with frequent reassessments, and discussions with other providers this patient required critical care time in excess of 65 minutes. Critical care time was indicated due to the inherent instability and/or potential for instability in this patient. The critical care time that is allocated to this patient is above and beyond any time spent on any other billable procedures performed on this patient. (3) Hypotension Impression: 2/2 to sedating meds. Mangaed with Levophed - cont supportive care Qualifiers: Hypotension type: hypotension due to drug Qualified Code(s): I95.2 - Hypotension due to drugs (4) Moderate protein-calorie malnutrition Impression: Continue nutritional support with NG tube (5) Thrombocytosis Impression: Resolved (6) CLL (chronic lymphocytic leukemia) Impression: Stable, cont daily labs (7) Hypothyroidism Impression: stable, cont IV levothyroxine (8) Anemia Impression: 2/2 to CLL in setting of ARDS - stable, cont to monitor Qualifiers: Anemia type: due to chronic kidney disease (9) JANICE (acute kidney injury) Impression: Resolved, cont to monitor
[2020-02-10] MEDS: ZINC OXIDE 20% OINT 30 GM TUBE TOP PRN (17:01)
[2020-02-10] MEDS: ROCURONIUM 50 MG/5 ML VIAL IVP ONE (22:20)
[2020-02-10] MEDS: fentaNYL 2,000 MCG/200 ML 2,000 MCG/200 ML BAG IV SCH (22:46)
[2020-02-10] MEDS ORDERED: NYSTATIN POWDER 15 GM TOP SCH (23:45)
[2020-02-11] MEDS: PROPOFOL 500 MG/50 ML 500 MG/50 ML VIAL IV SCH ×14 (01:16→15:48)
[2020-02-11] MEDS: fentaNYL 2,000 MCG/200 ML 2,000 MCG/200 ML BAG IV SCH ×3 (03:06→12:36)
[2020-02-11 05:00] LABS: MEAN CORPUSCULAR HGB CONC 29.2 g/dL (32.0-36.0); MEAN PLATELET VOLUME 9.4 fL (7.9-10.8); RED CELL DISTRIBUTION WIDTH 15.9 % (12.0-15.0)
[2020-02-11] MEDS ORDERED: SODIUM CHLORIDE 0.9% 250 ML IV ONE (05:02)
[2020-02-11 05:04] LABS: EOSINOPHILS % (AUTO) 5.2 %; HGB - HEMOGLOBIN 8.7 g/dL (12.0-16.0); LYMPHOCYTES % (AUTO) 32.4 %; MEAN CORPUSCULAR HEMOGLOBIN 27.9 pg (27.0-31.0); MEAN CORPUSCULAR VOLUME 95.5 fL (81.0-99.0); MONOCYTES % (AUTO) 7.8 %; NEUTROPHILS % (AUTO) 52.4 %; PLT - PLATELET COUNT 690 10^3/uL (130-450); RED BLOOD COUNT 3.12 10^6/uL (4.20-5.40); WHITE BLOOD COUNT 18.4 x10^3/uL (4.8-10.8)
[2020-02-11 05:07] LABS: ALBUMIN 2.3 g/dL (3.2-5.5); CALCIUM 8.1 mg/dL (8.5-10.3); CREATININE 1.1 mg/dL (0.4-1.0); MAGNESIUM 2.5 mg/dL (1.7-2.8)
[2020-02-11 05:13] LABS: ABNORMAL LYMPHS % (MANUAL) 0 %
[2020-02-11 05:37] LABS: BAND NEUTROPHILS % (MANUAL) 4 %; DIFFERENTIAL COMMENT MANUAL DIFFERENTIAL; EOSINOPHILS # (MANUAL) 0.4 10^3/uL (0-0.7); LYMPHOCYTES # (MANUAL) 1.7 10^3/uL (1.5-3.5); LYMPHOCYTES % (MANUAL) 9 %; METAMYELOCYTES % (MANUAL) 2 %; MONOCYTES # (MANUAL) 1.1 10^3/uL (0.0-1.0); MYELOCYTES % (MANUAL) 1 %; PLATELET ESTIMATE, MANUAL INCREASED (>450,000) (NORMAL); RBC MORPHOLOGY (MULTIPLE) 1+ HYPOCHROMASIA (NORMAL)
[2020-02-11] MEDS: HALOPERIDOL 5 MG/ML VIAL IVP PRN (06:00)
[2020-02-11] MEDS: LEVOTHYROXINE 125 MCG TABLET NG SCH (06:05)
[2020-02-11] MEDS ORDERED: CEFEPIME 2 GM in SODIUM CHLORIDE 0.9% MINIBAG 100 ML IV SCH (07:00)
[2020-02-11] MEDS ORDERED: SODIUM CHLORIDE INHALATION 3 ML NEB ONE (07:25)
[2020-02-11] MEDS: ROCURONIUM 50 MG/5 ML VIAL IVP ONE (07:53)
[2020-02-11] MEDS: DEXMEDETOMIDINE 1,000 MCG in SODIUM CHLORIDE 0.9% 240 ML IV SCH ×2 (07:54→12:14)
[2020-02-11] MEDS: SODIUM CHLORIDE FLUSH 0.9% 10 ML SYRINGE IVP SCH ×2 (07:54→07:55)
[2020-02-11] MEDS: CHLORHEXIDINE GLUCONATE 15 ML UDC PO SCH (08:09)
[2020-02-11] MEDS: ENOXAPARIN 40 MG/0.4 ML SYRINGE SUBQ SCH (08:09)
[2020-02-11] MEDS: PANTOPRAZOLE 40 MG VIAL IVP SCH (08:09)
[2020-02-11] MEDS ORDERED: VANCOMYCIN INJ 1 GM, VANCOMYCIN INJ 500 MG in SODIUM CHLORIDE 0.9% 500 ML IV ONE (10:00)
[2020-02-11] MEDS: CISATRACURIUM BESYLATE 100 MG in SODIUM CHLORIDE 0.9% 200 ML IV SCH (10:42)
[2020-02-11] MEDS ORDERED: VASOPRESSIN 20 UNIT in DEXTROSE 5% 99 ML IV SCH (12:00)
--- NOTE | 2020-02-11 14:23 | DISCHARGE SUMMARY ---
"Discharge Summary Admit Date: 01/29/20 Discharge Date: 02/11/20 Discharging Provider: Ivan Nguyễn MD Primary Care Provider: Out of State ([place]) Code Status: Attempt Resuscitation (Patient typically carries a DNR/DNI however Patient did agree to possible intubation given the current hospital admission diagnosis, and subsequently family has requested full measures including tracheostomy if necessary.) Condition at Discharge: Stable Discharge Disposition: 02 Transfer Acute Care Hosp - DIAGNOSES Admission Diagnoses: Acute respiratory failure with hypoxia Discharge Diagnoses with Status of Each Condition: Acute respiratory distress syndrome secondary to Covid-19 - Condition guarded - HPI History of Present Illness: Patient is a 64-year-old female with a past medical history of CLL, hypothyroidism, anxiety, a questionable hx of COPD per medical record review (though she does not have chronic oxygen dependance and is a non-smoker) history of malignant hyperthermia with anesthesia, and she is visiting [facility] from [place], having arrived January 04 and her usual state of [facility]. She presented to the emergency room on 01/29/2020 with a chief complaint of cough with fever. Symptoms developed 4 to 5 days prior to presentation in the ER. Symptoms included congestion, dry cough, fever with chills. Before the respiratory symptoms, she had a couple of days of diarrhea as well. She had a screening test for coronavirus 2 days prior to presenting, and at the time of admission, results were pending. She also added that she lost her sense of taste several days prior. In the emergency room, she was alert and oriented able to provide a full history. She was not in any acute respiratory distress however she did have some crackles apparently on exam with mild expiratory wheezes. She was mildly hypoxic requiring 2 L of oxygen by nasal cannula, febrile at T-max of 39.6, slight leukocytosis of 11.1 (though patient stated with her CLL she typically has a white blood cell count of 14-18). Additionally on admission her d-dimer was elevated at 280, and she showed a mild JANICE with a creatinine of 1.1, with normal LFTs, elevated CRP of 22, tested negative for influenza a and B. Chest x-ray showed diffuse bilateral groundglass opacities and consolidative pulmonary opacities left greater than right consistent with multifocal pneumonia. - CONSULTS | PROCEDURES Procedures: Central line, right IJ Arterial line, right brachial arteryaccidentally removed with movement of patient on 02/09/2020 Intubation, mechanical ventilation 01/29/2020 Extubation 02/10/2020 Second intubation 02/10/20 - HOSPITAL COURSE Hospital Course: Given that, initially, novel coronavirus testing results were pending, the patient was empirically started on Levaquin IV, Zithromax was initially avoided due to a history of Zithromax allergy. She was gently hydrated with IV fluids, and home medications were resumed. She was started on enoxaparin for DVT prophylaxis and this was continued throughout the hospital stay in addition to SCDs. By day 2 of hospital stay her test results came back positive. Initially she showed improvement with supportive measures and her initial set of ABGs suggested a mild respiratory alkalosis well compensated. She subjectively felt better, and was tolerating nasal cannula at 2 L. On 01/31/2020, she began to clinically worsen and she was started on hydroxychloroquine and azithromycin. Despite her reported allergy to azithromycin, she did not show any allergic response to this and was able to complete a 5-day course. Her O2 sats began to drop as low as to the 70s, with worsening chest x-ray opacities. She was counseled on the possible need for intubation and she agreed. Later that evening, patient was intubated, given a central line in the right IJ, and had a right arterial line placed. She was sedated on Versed and Precedex initially. On that day she was also started on levophed for blood pressure support, became somewhat bradycardic, so dopamine IV was added for support and to address bradycardia. On 02/03/2020 she developed fevers overnight, T-max of 101.6. She was continued on the dopamine, Plaquenil, azithromycin, Zosyn, vancomycin. Chest x-ray showed same previous findings with the addition of a left pleural effusion. FiO2 was improved from 70% down to 60%. Surgery was consulted regarding the pleural effu renita however with ultrasound the pleural effusion was not as well appreciated nor was there a safe window for drainage so this was not performed. Patient remained intubated, with gradual reduction of FiO2 eventually from 70% down to between 40 to 50%. Her sedation was changed from Versed and Precedex to propofol and fentanyl due to a shortage of Versed nationally. Bradycardia was appreciated and thought to be secondary to the Precedex. Because of the prolonged course of intubation, conversations were had with the family in light of the patient's previous DNR DNI wishes. Per , he wanted to continue with intubation for the current ARDS, but felt confident that should she have any cardiac arrest that CPR should not be performed. Over the course of the next several days, the patient made marginal improvements in reduction of FiO2, no other major significant events change the course of treatment. 02/10/2020 Given that the patient was showing significant agitation, and periodically showed signs of wakening, and even responding to commands on a couple of occasions, the team began to progress towards planning for extubation. However, her sedation was sometimes more of the challenge than her respiratory function as she would become quite anxious with even small reductions of propofol, Precedex, or fentanyl. It was eventually decided that the patient was going to simply have to be extubated or else she would extubate herself and given that on the day of extubation she was on a trial of CPAP for more than 1 hour, tolerating it well, with FiO2 40% that we would proceed with extubation. Patient was then successfully extubated and in the immediate post extubation stage she appeared to be quite well. She was awake, alert, able to attempt speaking but not coherent due to vocal cord edema. She was able to follow commands, nod her head yes and no in response to questions, and for the first 30 to 60 minutes post extubation showed a good tolerance to 6 L by open facemask. However, shortly after, she developed stridor, increased work of breathing, and again ultimately progressed to impending respiratory failure, so she was reintubated. During the reintubation, it was visible on the glide scope images that the vocal cord, glottis, and laryngeal structures were significantly edematous and causing a airway obstruction necessitating reintubation. At this point, it was determined the patient would need to remain on the ventilator, and would have to have a tracheotomy performed. This was planned for 02/12/2020 however after careful and extensive discussion with all involved including attending physician, consulting general surgeon, nursing directors, it was ultimately determined that the best next course of action would be to transfer the patient to a higher level of care. Additionally, the patient's white count had been relatively normal but increased to 15,000 on the day of discharge, so the patient was empirically started on vancomycin and cefepime for presumptive coverage of ventilator associated pneumonia. She did not have fevers, or other clinical signs to suggest of this and this was considered a measure of caution. On 02/11/2020 the patient was graciously accepted into the care of Dr. Espinosa at the medical ICU at [facility] in [place] and arrangements were made for transportation via helicopter. Family members were informed of these plans and were in strong support of the decision to transport the patient. Family members to contact are as follows: Sister, whom she was visiting Anabel Toney [phone] (Resides on [facility]) Montrell Shannon [phone] (Resides in [place]) - ALLERGIES Allergies/Adverse Reactions: Allergies Allergy/AdvReac Type Severity Reaction Status Date / Time aspirin Allergy Anaphylaxis Verified 01/29/20 10:14 azithromycin Allergy Hives Verified 01/29/20 10:14 morphine Allergy Itching Verified 01/29/20 10:14 pregabalin [From Lyrica] Allergy Unknown Verified 01/29/20 10:14 tetanus toxoid, adsorbed Allergy Itching Verified 01/29/20 10:14 gabapentin AdvReac Unknown Verified 01/29/20 10:14 - MEDICATIONS Home Medications: Ambulatory Orders Medication Instructions Recorded Confirmed Duloxetine HCl [Cymbalta] 2 tab DAILY 01/29/20 01/29/20 Levothyroxine [Synthroid] 1 tab DAILY 01/29/20 01/29/20 Melatonin 1 tab DAILY 01/29/20 01/29/20 - PHYSICAL EXAM AT DISCHARGE General Appearance: positive: Other (Intubated - sedated) Eyes Bilateral: positive: Normal inspection, No lid inflammation Neck: positive: Nml inspection, Thyroid nml, No JVD, Trachea midline Respiratory: positive: Other (Diminished breath sounds bilaterally, with fine Rhonchi base of left lung) Cardiovascular: positive: Regular rate & rhythm, No murmur, No gallop Peripheral Pulses: positive: 2+ Abdomen: positive: Non-tender, No organomegaly, Nml bowel sounds, No distention Skin: positive: Color nml Extremities: positive: Nml appearance, Pedal edema Neurologic/Psychiatric: positive: Other (Chemically sedated, occasionally demonstrating signs of voluntary movement) - LABS Result Diagrams: 02/11/20 04:45 02/11/20 04:45 - DIAGNOSTIC IMAGING Diagnostic Imaging Results: Final report reviewed, Read independently - SEPSIS Possible source of Sepsis: Pulmonary Sepsis Criteria: Suspected or Documented - TIME SPENT Time Spent in Discharge (Minutes): 145"
[2020-02-11 15:45] VITALS: BP 109/57
[2020-02-11] MEDS ORDERED: VANCOMYCIN INJ 1 GM, VANCOMYCIN INJ 250 MG in SODIUM CHLORIDE 0.9% 250 ML IV SCH (22:00)
== END 2020-02-11 16:30 | disposition short-term general hospital (02) | DRG 207 ==
LOC: ED 09:44 → MS2 12:48 → ICU 01-31 16:40
PROVIDERS: ADMIT Nurse Practitioner Gerontology; ATTEND Family Medicine Sports Medicine
PROC: 5A1955Z Respiratory Ventilation, Greater than 96 Consecutive Hours (ICD-10-PCS; principal; 2020-01-31)
PROC: 0BH17EZ Insertion of Endotracheal Airway into Trachea, Via Natural or Artificial Opening (ICD-10-PCS; 2020-01-31)
PROC: 05HM33Z Insertion of Infusion Device into Right Internal Jugular Vein, Percutaneous Approach (ICD-10-PCS; 2020-01-31)
PROC: 03HY32Z Insertion of Monitoring Device into Upper Artery, Percutaneous Approach (ICD-10-PCS; 2020-01-31)
DX: U07.1 COVID-19 (principal); J12.89 Other viral pneumonia; J80 Acute respiratory distress syndrome; C91.10 Chronic lymphocytic leukemia of B-cell type not having achieved remission; J91.8 Pleural effusion in other conditions classified elsewhere; N17.9 Acute kidney failure, unspecified; J44.0 Chronic obstructive pulmonary disease with (acute) lower respiratory infection; R57.9 Shock, unspecified; E87.2 Acidosis; E44.0 Moderate protein-calorie malnutrition; E87.3 Alkalosis; J38.4 Edema of larynx; J98.8 Other specified respiratory disorders; D63.0 Anemia in neoplastic disease; E03.9 Hypothyroidism, unspecified; F41.9 Anxiety disorder, unspecified; E86.0 Dehydration; T88.3XXD Malignant hyperthermia due to anesthesia, subsequent encounter; T41.45 Adverse effect of unspecified anesthetic; R00.1 Bradycardia, unspecified; T42.6X5A Adverse effect of other antiepileptic and sedative-hypnotic drugs, initial encounter; Y92.230 Patient room in hospital as the place of occurrence of the external cause; Z68.38 Body mass index [BMI] 38.0-38.9, adult; D47.3 Essential (hemorrhagic) thrombocythemia; Z66 Do not resuscitate; Z79.899 Other long term (current) drug therapy
CPT/HCPCS: 36415; 36600; 71045; 76604; 80048; 80053; 80061; 80076; 80202; 82040; 82330; 82550; 82728; 82803; 83540; 83605; 83690; 83735; 83880; 84100; 84443; 84466; 84478; 84484; 85025; 85379; 86140; 86850; 86900; 86901; 87040; 87150; 87275; 87276; 93306; 94002; 94003; 94640; 96361; 96365; 96375; 99284; 99285; A9270; J0131; J1650; J3010; J3370; 83721; 94770

== ENCOUNTER 2020-03-18 17:38 | Outpatient (CLI) | payer BC | END 2020-03-18 17:39 | disposition EMS.NT | LOC: EMS 17:38 | PROVIDERS: ATTEND Surgery | DX: Z03.89 Encounter for observation for other suspected diseases and conditions ruled out (principal) ==

== ENCOUNTER 2020-03-29 14:41 | Emergency (ER) | payer BC ==
--- NOTE | 2020-03-29 15:29 | XRAY Report ---
Reason: Chest Pain Procedure Date: 03/29/2020 Accession Number: [id number] / [id number] Procedure: XR - Chest 1 View X-Ray CPT Code: 26025 Final Report FULL RESULT: EXAM: CHEST RADIOGRAPHY EXAM DATE: 03/29/2020 03:20 PM. CLINICAL HISTORY: Chest Pain. COMPARISON: CHEST FOR LINE PLACEMENT 02/10/2020 1:04 PM. TECHNIQUE: 1 view. FINDINGS: Lungs/Pleura: No focal opacities evident. No pleural effusion. No pneumothorax. Mediastinum: Within exam limitations, the cardiomediastinal contour is normal. Other: None. IMPRESSION: No focal consolidation. RADIA
--- NOTE | 2020-03-29 15:43 | ED Physician Documentation ---
PD HPI DYSPNEA - Stated complaint Stated Complaint: HIGH HEART RATE - Chief complaint Chief Complaint: Cardiac - History obtained from History obtained from: Patient - History of Present Illness Timing - onset: How many days ago (2-3) Timing - onset during: Light activity Timing - details: Gradual onset, Waxing and waning (noted fatigue and fast heart rate with light activity (PT) for few days. Has had less appetite. No fever. No chest pain.) Inciting event(s): Immobilization/travel (she had been in hospital with COVID, intubated in ICU for weeks. Discharged and was in rehab until 03/17 and is now home and getting PT/OT daily.). No: Out of meds, URI Improved by: Rest Worsened by: Exertion. No: Laying flat Associated symptoms: No: Fever, Cough, Wheezing, Bilateral edema Similar symptoms before: Diagnosis (had similar dyspnea along with cough at beginning of COVID infection) Review of Systems Constitutional: reports: Fatigue, Weight Loss. denies: Fever, Chills Nose: denies: Rhinorrhea / runny nose, Congestion Throat: denies: Sore throat Cardiac: denies: Chest pain / pressure, Palpitations, Pedal edema, Calf pain Respiratory: reports: Dyspnea. denies: Cough, Wheezing GI: denies: Nausea, Vomiting, Diarrhea : denies: Dysuria Neurologic: reports: Generalized weakness. denies: Focal weakness, Numbness, Altered mental status, Headache PD PAST MEDICAL HISTORY - Past Medical History Cardiovascular: None Respiratory: Shortness of breath Neuro: None Endocrine/Autoimmune: HyPOthyroidism GI: None : None Psych: Depression Musculoskeletal: None Derm: None Other Past Medical History: CLL - Past Surgical History Past Surgical History: Yes General: Gastric surgery HEENT: Other - Present Medications Home Medications: Ambulatory Orders Medication Instructions Recorded Confirmed Duloxetine HCl [Cymbalta] 2 tab DAILY 01/29/20 01/29/20 Levothyroxine [Synthroid] 1 tab DAILY 01/29/20 01/29/20 Melatonin 1 tab DAILY 01/29/20 01/29/20 - Allergies Allergies/Adverse Reactions: Allergies Allergy/AdvReac Type Severity Reaction Status Date / Time aspirin Allergy Anaphylaxis Verified 03/29/20 14:47 azithromycin Allergy Hives Verified 03/29/20 14:47 morphine Allergy Itching Verified 03/29/20 14:47 pregabalin [From Lyrica] Allergy Unknown Verified 03/29/20 14:47 tetanus toxoid, adsorbed Allergy Itching Verified 03/29/20 14:47 gabapentin AdvReac Unknown Verified 03/29/20 14:47 - Social History Does the pt smoke?: No Smoking Status: Never smoker Does the pt drink ETOH?: No Does the pt have substance abuse?: No - Immunizations Immunizations are current?: Yes PD ED PE NORMAL - Vitals Vital signs reviewed: Yes - General General: Alert and oriented X 3, No acute distress, Well developed/nourished - HEENT HEENT: Ears normal, Pharynx benign. No: Moist mucous membranes - Neck Neck: Supple, no meningeal sign, No adenopathy - Cardiac Cardiac: No murmur. No: RRR (regular but tachycardic) - Respiratory Respiratory: Clear bilaterally - Abdomen Abdomen: Soft, Non tender - Back Back: No CVA TTP - Derm Derm: Normal color, Warm and dry - Extremities Extremities: Normal ROM s pain, No edema, No calf tenderness / cord - Neuro Neuro: Alert and oriented X 3, No motor deficit, Normal speech Eye Opening: Spontaneous Motor: Obeys Commands Verbal: Oriented GCS Score: 15 Results - Vitals Vitals: Vital Signs - 24 hr 03/29/20 03/29/20 03/29/20 14:47 15:43 16:00 Temperature 36.6 C Heart Rate 123 H 103 H 99 Respiratory 22 18 24 Rate Blood Pressure 108/72 134/98 H 140/91 H O2 Saturation 99 98 98 03/29/20 18:11 Temperature Heart Rate 88 Respiratory 16 Rate Blood Pressure 124/78 O2 Saturation 100 Oxygen O2 Source Room air - EKG (time done) 15:08 Rate: Rate (enter#) (114) Rhythm: Sinus tachycardia Rickreall: Normal Intervals: Normal MD QRS: Normal Ischemia: Normal ST segments. No: ST elevation c/w ischemia, ST depression - Labs Labs: Laboratory Tests 03/29/20 03/29/20 03/29/20 15:04 15:40 15:40 WBC 14.7 H RBC 4.24 Hgb 13.0 Hct 40.7 MCV 96.0 MCH 30.7 MCHC 31.9 L RDW 15.7 H Plt Count 468 H MPV 10.0 Neut # (Auto) 8.0 H Lymph # (Auto) 4.9 H Barnes # (Auto) 1.2 H Eos # (Auto) 0.4 Baso # (Auto) 0.2 H Absolute Nucleated RBC 0.00 Nucleated RBC % 0.0 D-Dimer Sodium 140 Potassium 3.9 Chloride 107 Carbon Dioxide 22 Anion Gap 11.0 BUN 25 H Creatinine 1.1 H Estimated GFR (MDRD) 50 L Glucose 111 H Calcium 9.5 Magnesium 2.2 Total Bilirubin 1.4 H AST 34 ALT 38 Alkaline Phosphatase 89 Troponin I High Sens B-Natriuretic Peptide Total Protein 7.0 Albumin 4.1 Globulin 2.9 Albumin/Globulin Ratio 1.4 Lipase 46 TSH Thyroxine (T4) 10.71 Total T3 1.04 03/29/20 03/29/20 03/29/20 15:40 15:40 15:40 WBC RBC Hgb Hct MCV MCH MCHC RDW Plt Count MPV Neut # (Auto) Lymph # (Auto) Barnes # (Auto) Eos # (Auto) Baso # (Auto) Absolute Nucleated RBC Nucleated RBC % D-Dimer 276.6 H Sodium Potassium Chloride Carbon Dioxide Anion Gap BUN Creatinine Estimated GFR (MDRD) Glucose Calcium Magnesium Total Bilirubin AST ALT Alkaline Phosphatase Troponin I High Sens 5.6 B-Natriuretic Peptide 26 Total Protein Albumin Globulin Albumin/Globulin Ratio Lipase TSH Thyroxine (T4) Total T3 03/29/20 15:40 WBC RBC Hgb Hct MCV MCH MCHC RDW Plt Count MPV Neut # (Auto) Lymph # (Auto) Barnes # (Auto) Eos # (Auto) Baso # (Auto) Absolute Nucleated RBC Nucleated RBC % D-Dimer Sodium Potassium Chloride Carbon Dioxide Anion Gap BUN Creatinine Estimated GFR (MDRD) Glucose Calcium Magnesium Total Bilirubin AST ALT Alkaline Phosphatase Troponin I High Sens B-Natriuretic Peptide Total Protein Albumin Globulin Albumin/Globulin Ratio Lipase TSH 0.11 L Thyroxine (T4) Total T3 - Rads (name of study) chest xray Radiology: Prelim report reviewed (no focal consolidations), See rad report PD MEDICAL DECISION MAKING - ED course Complexity details: reviewed results, re-evaluated patient (she is feeling better and HR down with IV fluids. Labs are normal (d-dimer is normal based on literature based criteria of 5x(age) or 500 cutoff), with exception of low TSH and expected elevated WBC due to her CLL. Bedside U/S showing normal contractility generally and no noted pericardial effusion. ), considered differential (consider infection, heart or lung related, anemia, dehydration, metabolic among others.), d/w patient Departure - Departure Disposition: 01 Home, Self Care Clinical Impression: Tachycardia, General weakness, CLL (chronic lymphocytic leukemia) Condition: Stable Record reviewed to determine appropriate education?: Yes Instructions: ED Dehydration Comments: Stay well-hydrated. Your basic tests appear normal with the exception of a low TSH and elevated white count which is likely normal with your CLL. Your kidney function is highly elevated. I think your weakness and fast heart rate are from dehydration. Be sure to stay well-hydrated. No signs of more significant causes at this time. I would for now decrease your thyroid supplement to every other day until you discuss with your primary care. I did add a T3 and T4 to your lab tests. Discharge Date/Time: 03/29/20 18:15
[2020-03-29 15:53] LABS: BASOPHILS # (AUTO) 0.2 10^3/uL (0.0-0.1); BASOPHILS % (AUTO) 1.2 %; EOSINOPHILS # (AUTO) 0.4 10^3/uL (0.0-0.7); EOSINOPHILS % (AUTO) 2.7 %; LYMPHOCYTES # (AUTO) 4.9 10^3/uL (1.5-3.5); LYMPHOCYTES % (AUTO) 33.6 %; MEAN CORPUSCULAR HEMOGLOBIN 30.7 pg (27.0-31.0); MEAN CORPUSCULAR HGB CONC 31.9 g/dL (32.0-36.0); MONOCYTES # (AUTO) 1.2 10^3/uL (0.0-1.0); NEUTROPHILS % (AUTO) 54.1 %; PLT - PLATELET COUNT 468 10^3/uL (130-450); RED BLOOD COUNT 4.24 10^6/uL (4.20-5.40); RED CELL DISTRIBUTION WIDTH 15.7 % (12.0-15.0); WHITE BLOOD COUNT 14.7 x10^3/uL (4.8-10.8)
[2020-03-29 16:10] LABS: ALBUMIN 4.1 g/dL (3.2-5.5); ALBUMIN/GLOBULIN RATIO 1.4 (1.0-2.2); BILIRUBIN,TOTAL 1.4 mg/dL (0.2-1.0); CALCIUM 9.5 mg/dL (8.5-10.3); CREATININE 1.1 mg/dL (0.4-1.0); MAGNESIUM 2.2 mg/dL (1.7-2.8)
[2020-03-29] MEDS ORDERED: SODIUM CHLORIDE 0.9% 1,000 ML IV STA (16:13)
[2020-03-29 18:12] VITALS: BP 124/78
[2020-03-29 18:36] LABS: T4 (THYROXINE) 10.71 ug/dL (6.09-12.23)
[2020-03-29 18:46] LABS: TOTAL T3 1.04 ng/mL (0.87-1.78)
== END 2020-03-29 18:15 | disposition home or self-care (01) ==
LOC: ED 14:41
DX: R00.0 Tachycardia, unspecified (principal); R53.1 Weakness; C91.10 Chronic lymphocytic leukemia of B-cell type not having achieved remission; E03.9 Hypothyroidism, unspecified; Z86.19 Personal history of other infectious and parasitic diseases
CPT/HCPCS: 36415; 71045; 80053; 83690; 83735; 83880; 84436; 84443; 84480; 84484; 85025; 85379; 93005; 96360; 99284